=== PATIENT | male | born 1960 | race Caucasian/White ===

== ENCOUNTER 2018-06-06 22:03 | Inpatient (IN) | payer MEDICAID ==
[2018-06-06] MEDS: PANTOPRAZOLE IV 80 MG in SOD CHLORIDE 0.9% 100 ML IVPB (23:18)
[2018-06-06] MEDS: SOD CHLORIDE 0.9% 1,000 ML IV (23:19)
[2018-06-06 23:27] LABS: AADO2 Arterial 28.7 mmHg (7.0-24.0); Allen Test ACCEPTAB; Arterial Base Excess -0.1 mmol/L (-3.0-3); Arterial Blood Gas Oxygen Sat 92.8 mmHG (95.0-98.0); Arterial Fraction of Oxyhgb 91.6 % (93.0-99.0); Arterial HCO3 24.7 mmol/L (22.0-26.0); Arterial MetHb 0.3 % (0.0-1.5); Arterial pCO2 40.9 mmhg (35-45); MODE ROOM AIR; Site Right Radial
[2018-06-06 23:38] LABS: ABNORMAL IP MESSAGE 1; HEMATOCRIT 21.8 % (42.0-52.0); HEMOGLOBIN 7.4 g/dl (14.0-18.0); MEAN CORPUSCULAR HEMOGLOBIN 28.5 pg (29.0-33.0); MEAN CORPUSCULAR HGB CONC 33.9 g/dl (32.0-37.0); MEAN CORPUSCULAR VOLUME 83.8 fl (82.0-101.0); MEAN PLATELET VOLUME 11.9 fl (7.4-10.4); PLATELET COUNT 222 10^3/UL (140-415); POSITIVE DIFF @See below; RED CELL DISTRIBUTION WIDTH 12.5 % (11.5-14.5)
[2018-06-06 23:38] LABS: WHITE BLOOD COUNT 53.2 10^3/ul (4.8-10.8)
[2018-06-06 23:39] LABS: ADD MAN DIFF? YES
[2018-06-06 23:53] LABS: INR 1.23; PROTIME 15.7 Sec (11.9-14.9); PT RATIO 1.2
[2018-06-06 23:55] LABS: ALANINE AMINOTRANSFERASE 40 IU/L (13-69); ALBUMIN 2.5 g/dl (3.3-4.9); ALBUMIN/GLOBULIN RATIO 0.78; ALKALINE PHOSPHATASE 260 IU/L (42-121); ANION GAP 15 (5-13); ASPARTATE AMINO TRANSFERASE 44 IU/L (15-46); BILIRUBIN,INDIRECT 0.4 mg/dl (0-1.1); BILIRUBIN,TOTAL 0.4 mg/dl (0.2-1.3); BLOOD UREA NITROGEN 88 mg/dl (7-20); CALCIUM 7.9 mg/dl (8.4-10.2); CARBON DIOXIDE 27 mmol/L (21-31); CHLORIDE 88 mmol/L (97-110); CREATININE 1.26 mg/dl (0.61-1.24); Estimated GFR 59 mL/min (>60); POTASSIUM 3.9 mmol/L (3.5-5.1); SODIUM 130 mmol/L (135-144); TOTAL PROTEIN 5.7 g/dl (6.1-8.1)
[2018-06-06] MEDS: PANTOPRAZOLE IV 80 MG in SOD CHLORIDE 0.9% 100 ML IV (23:56)
[2018-06-07] LABS: GLUCOSE 612 mg/dl (70-220)
[2018-06-07 00:07] LABS: TROPONIN-I < 0.012 ng/ml (0.000-0.120)
[2018-06-07 00:23] LABS: ANISOCYTOSIS 1+ (0-0); BAND NEUTROPHILS #M 6.9 10^3/ul (0.0-0.6); BAND NEUTROPHILS % (M) 13 % (0-4); LYMPHOCYTES % (M) 2 % (15-51); METAMYELOCYTES #M 0.5 10^3/ul (0.0-0.0); METAMYELOCYTES %M 1 % (0-0); MONOCYTE #M 1.5 10^3/ul (0.3-0.9); MONOCYTES % (M) 3 % (0-11); MYELOCYTES #M 0.5 10^3/ul (0.0-0.0); MYELOCYTES % (M) 1 % (0-0); PLATELET ESTIMATE NORMAL; POLYCHROMASIA 1+ (0-0); SEG NEUT #M 46.2 10^3/ul (1.6-7.5); SEGMENTED NEUTROPHILS (M) % 80 % (39-77); SMUDGE%M 3 % (0-0)
[2018-06-07] MEDS: SODIUM CHLORIDE 0.9% 1L BAG IV* (00:33)
[2018-06-07 00:35] LABS: ERYTHROCYTE SEDIMENTATION RATE 125 mm/Hr (0-20)
[2018-06-07] MEDS: CEFEPIME 2GM/50 ML (PMX) 50 ML IVPB (00:37)
[2018-06-07] MEDS ORDERED: DEXTROSE 50% 50 ML SYRINGE IV ×2 (01:00)
[2018-06-07] MEDS: VANCOMYCIN 1 GM (PMX) 250 ML IVPB (01:10)
[2018-06-07] MEDS ORDERED: DOCUSATE SODIUM 100 MG CAP PO (01:30)
[2018-06-07] MEDS: ACCU-CHEK XX ×20 (02:00→19:00)
[2018-06-07] MEDS: SOD CHLORIDE 0.9% 1,000 ML IV (03:07)
[2018-06-07] MEDS: INSULIN HUMAN REGULAR 100 UNIT in SOD CHLORIDE 0.9% 99 ML IV (03:15)
[2018-06-07] MEDS ORDERED: VANCOMYCIN IV PER PHARMACY XX (03:30)
[2018-06-07 03:59] LABS: HEMOGLOBIN A1C 11.8 % (0-5.9)
[2018-06-07] MEDS: CLINDAMYCIN 900 MG/D5W (PMX) 50 ML IVPB ×3 (04:00→22:10)
[2018-06-07 05:55] LABS: WHITE BLOOD COUNT 42.2 10^3/ul (4.8-10.8)
[2018-06-07 05:55] LABS: ABNORMAL IP MESSAGE 1; HEMATOCRIT 20.5 % (42.0-52.0); MEAN CORPUSCULAR HEMOGLOBIN 28.6 pg (29.0-33.0); MEAN CORPUSCULAR HGB CONC 33.7 g/dl (32.0-37.0); MEAN CORPUSCULAR VOLUME 85.1 fl (82.0-101.0); MEAN PLATELET VOLUME 12.1 fl (7.4-10.4); NUCLEATED RED BLOOD CELLS% 0.1 /100WBC (0.0-0.0); PLATELET COUNT 211 10^3/UL (140-415); POSITIVE DIFF @See below; RED BLOOD COUNT 2.41 10^6/ul (4.70-6.10); RED CELL DISTRIBUTION WIDTH 12.4 % (11.5-14.5)
[2018-06-07] MEDS: VANCOMYCIN 500 MG (PMX) 100 ML IVPB (05:55)
[2018-06-07] MEDS ORDERED: CLINDAMYCIN 900 MG/D5W (PMX) 50 ML IVPB (06:00)
[2018-06-07 06:01] LABS: HEMOGLOBIN 6.9 g/dl (14.0-18.0)
[2018-06-07 06:02] LABS: ADD MAN DIFF? YES
[2018-06-07] MEDS: metroNIDAZOLE 500 MG/NS (PMX) 100 ML IVPB (06:27)
[2018-06-07] MEDS: PIPER-TAZO 3.375 GM IV (PMX) 100 ML IVPB ×4 (06:27→23:30)
[2018-06-07 06:32] LABS: ALANINE AMINOTRANSFERASE 37 IU/L (13-69); ALBUMIN/GLOBULIN RATIO 0.71; ALKALINE PHOSPHATASE 195 IU/L (42-121); ANION GAP 15 (5-13); ASPARTATE AMINO TRANSFERASE 41 IU/L (15-46); BILIRUBIN,INDIRECT 0.3 mg/dl (0-1.1); BILIRUBIN,TOTAL 0.3 mg/dl (0.2-1.3); BLOOD UREA NITROGEN 75 mg/dl (7-20); CALCIUM 7.5 mg/dl (8.4-10.2); CARBON DIOXIDE 22 mmol/L (21-31); CHLORIDE 101 mmol/L (97-110); CREATININE 0.81 mg/dl (0.61-1.24); Estimated GFR > 60 mL/min (>60); GLUCOSE 273 mg/dl (70-220); POTASSIUM 3.2 mmol/L (3.5-5.1); SODIUM 138 mmol/L (135-144); TOTAL PROTEIN 4.8 g/dl (6.1-8.1)
[2018-06-07 06:37] LABS: LACTIC ACID 4.6 mmol/L (0.5-2.0)
[2018-06-07 08:00] LABS: MAGNESIUM 2.7 mg/dl (1.7-2.5)
[2018-06-07 08:00] LABS: ANISOCYTOSIS 1+ (0-0); BAND NEUTROPHILS #M 5.9 10^3/ul (0.0-0.6); BAND NEUTROPHILS % (M) 14 % (0-4); BASOPHIL #M 0.4 10^3/ul (0.0-0.0); BASOPHILS % (M) 1 % (0-2); LYMPHOCYTES #M 0.4 10^3/ul (0.8-2.9); LYMPHOCYTES % (M) 1 % (15-51); MONOCYTE #M 0.8 10^3/ul (0.3-0.9); MONOCYTES % (M) 2 % (0-11); MYELOCYTES #M 0.8 10^3/ul (0.0-0.0); MYELOCYTES % (M) 2 % (0-0); PLATELET ESTIMATE NORMAL; POIKILOCYTOSIS 1+ (0-0); SEG NEUT #M 36.2 10^3/ul (1.6-7.5); SEGMENTED NEUTROPHILS (M) % 80 % (39-77); SMUDGE%M 8 % (0-0)
[2018-06-07 08:44] LABS: IMMEDIATE SPIN CROSSMATCH 1 4
[2018-06-07] MEDS ORDERED: POLYMYXIN B 500000 UNIT INJ ×2 (09:10→10:38)
[2018-06-07] MEDS ORDERED: MIDAZOLAM 1 MG/ML 2 ML INJ ×3 (09:25→10:55)
[2018-06-07] MEDS ORDERED: FENTAnyl 50 MCG/ML VIAL (09:25)
[2018-06-07] MEDS: POLYMYXIN/BACITRACIN 1L IRRIG IRR ×2 (09:55→10:45)
[2018-06-07 10:12] LABS: ADD UMIC YES; UR ASCORBIC ACID NEGATIVE (NEGATIVE); UR BILIRUBIN (Dip) NEGATIVE (NEGATIVE); UR BLOOD (Dip) 1+ mg/dL (NEGATIVE); UR CLARITY CLEAR (CLEAR); UR COLOR YELLOW (YELLOW); UR GLUCOSE (Dip) 3+ mg/dL (NEGATIVE); UR KETONES (Dip) TRACE mg/dL (NEGATIVE); UR LEUKOCYTE ESTERASE (Dip) NEGATIVE Leu/ul (NEGATIVE); UR NITRITE (Dip) NEGATIVE (NEGATIVE); UR RBC 0 /HPF (0-5); UR SPECIFIC GRAVITY (Dip) 1.016 (1.003-1.030); UR TOTAL PROTEIN (Dip) NEGATIVE (NEGATIVE); UR URIC ACID CRYSTAL FEW /HPF (NONE SEEN); UR UROBILINOGEN (Dip) NEGATIVE (NEGATIVE); UR WBC 1 /HPF (0-5)
[2018-06-07] MEDS ORDERED: LIDOCAINE 1% (STERILE-PAK) 30 ML INJ (10:25)
[2018-06-07] MEDS ORDERED: BACITRACIN 50000 UNITS INJ (10:41)
[2018-06-07] MEDS ORDERED: PROPOFOL 20 ML (10:52)
[2018-06-07] MEDS: POTASSIUM CHLORIDE 30 MEQ in SOD CHLORIDE 0.9% 1,000 ML IV ×2 (12:18→17:39)
[2018-06-07 15:33] LABS: WHITE BLOOD COUNT 39.1 10^3/ul (4.8-10.8)
[2018-06-07 15:33] LABS: ABNORMAL IP MESSAGE 1; HEMATOCRIT 21.4 % (42.0-52.0); HEMOGLOBIN 7.2 g/dl (14.0-18.0); MEAN CORPUSCULAR HEMOGLOBIN 28.8 pg (29.0-33.0); MEAN CORPUSCULAR HGB CONC 33.6 g/dl (32.0-37.0); MEAN CORPUSCULAR VOLUME 85.6 fl (82.0-101.0); MEAN PLATELET VOLUME 11.1 fl (7.4-10.4); NUCLEATED RED BLOOD CELLS% 0.2 /100WBC (0.0-0.0); PLATELET COUNT 175 10^3/UL (140-415); POSITIVE DIFF @See below; RED CELL DISTRIBUTION WIDTH 12.9 % (11.5-14.5)
[2018-06-07 15:45] LABS: ADD MAN DIFF? YES
[2018-06-07 15:54] LABS: IRON 56 ug/dl (35-150)
[2018-06-07 16:03] LABS: % IRON SATURATION 30 % SAT (22-52); TOTAL IRON BINDING CAPACITY 185 ug/dl (241-421)
[2018-06-07] MEDS: VANCOMYCIN 1 GM 250 ML IVPB (16:46)
[2018-06-07] MEDS: INSULIN GLARGINE [LANTus] (100 UNITS/ML) SYG SC (16:53)
[2018-06-07 16:57] LABS: BAND NEUTROPHILS #M 7.8 10^3/ul (0.0-0.6); BAND NEUTROPHILS % (M) 20 % (0-4); HYPOCHROMASIA 1+ (0-0); LYMPHOCYTES #M 1.1 10^3/ul (0.8-2.9); LYMPHOCYTES % (M) 3 % (15-51); METAMYELOCYTES #M 0.3 10^3/ul (0.0-0.0); METAMYELOCYTES %M 1 % (0-0); MONOCYTE #M 1.5 10^3/ul (0.3-0.9); MONOCYTES % (M) 4 % (0-11); MYELOCYTES #M 0.3 10^3/ul (0.0-0.0); MYELOCYTES % (M) 1 % (0-0); PLATELET ESTIMATE NORMAL; POLYCHROMASIA 1+ (0-0); REACTIVE LYMPHOCYTES #M 0.3 10^3/ul (0.0-0.0); REACTIVE LYMPHOCYTES% (M) 1 % (0-0); SEG NEUT #M 30.4 10^3/ul (1.6-7.5); SEGMENTED NEUTROPHILS (M) % 70 % (39-77); SMUDGE%M 20 % (0-0)
[2018-06-07] MEDS: INSULIN ASPART [NOVOLOG] 3 ML PEN SC ×2 (17:35→21:59)
[2018-06-07] MEDS: ALBUTEROL 0.083% (NEB) 2.5 MG/3 ML AMP NEB ×2 (20:09→21:11)
[2018-06-07] MEDS: IPRATROPIUM (NEB) 0.5 MG/2.5 ML AMP NEB ×2 (20:09→21:11)
[2018-06-07] MEDS: morphine 2 MG INJ IV (21:00)
[2018-06-07 22:14] LABS: WHITE BLOOD COUNT 39.5 10^3/ul (4.8-10.8)
[2018-06-07 22:14] LABS: ABNORMAL IP MESSAGE 1; HEMATOCRIT 23.5 % (42.0-52.0); HEMOGLOBIN 7.9 g/dl (14.0-18.0); MEAN CORPUSCULAR HEMOGLOBIN 29.2 pg (29.0-33.0); MEAN CORPUSCULAR HGB CONC 33.6 g/dl (32.0-37.0); MEAN CORPUSCULAR VOLUME 86.7 fl (82.0-101.0); MEAN PLATELET VOLUME 11.6 fl (7.4-10.4); NUCLEATED RED BLOOD CELLS% 0.3 /100WBC (0.0-0.0); PLATELET COUNT 191 10^3/UL (140-415); POSITIVE DIFF @See below; RED BLOOD COUNT 2.71 10^6/ul (4.70-6.10); RED CELL DISTRIBUTION WIDTH 13.1 % (11.5-14.5)
[2018-06-07 22:23] LABS: ADD MAN DIFF? YES
[2018-06-07 23:02] LABS: BAND NEUTROPHILS #M 7.5 10^3/ul (0.0-0.6); BAND NEUTROPHILS % (M) 19 % (0-4); LYMPHOCYTES #M 0.3 10^3/ul (0.8-2.9); LYMPHOCYTES % (M) 1 % (15-51); METAMYELOCYTES #M 1.1 10^3/ul (0.0-0.0); METAMYELOCYTES %M 3 % (0-0); MONOCYTE #M 2.3 10^3/ul (0.3-0.9); MONOCYTES % (M) 6 % (0-11); MYELOCYTES #M 0.3 10^3/ul (0.0-0.0); MYELOCYTES % (M) 1 % (0-0); PLATELET ESTIMATE NORMAL; POLYCHROMASIA 2+ (0-0); SEG NEUT #M 30.6 10^3/ul (1.6-7.5); SEGMENTED NEUTROPHILS (M) % 70 % (39-77); SMUDGE%M 1 % (0-0)
[2018-06-07 23:10] LABS: ANION GAP 10 (5-13); BLOOD UREA NITROGEN 41 mg/dl (7-20); CALCIUM 6.8 mg/dl (8.4-10.2); CARBON DIOXIDE 22 mmol/L (21-31); CHLORIDE 107 mmol/L (97-110); CREATININE 0.62 mg/dl (0.61-1.24); Estimated GFR > 60 mL/min (>60); GLUCOSE 171 mg/dl (70-220); POTASSIUM 3.4 mmol/L (3.5-5.1); SODIUM 139 mmol/L (135-144)
[2018-06-08] MEDS: ALBUTEROL 0.083% (NEB) 2.5 MG/3 ML AMP NEB ×7 (01:17→21:12)
[2018-06-08] MEDS: IPRATROPIUM (NEB) 0.5 MG/2.5 ML AMP NEB ×7 (01:17→21:14)
[2018-06-08] MEDS: ACCU-CHEK XX (02:26)
[2018-06-08] MEDS: POTASSIUM CHLORIDE 30 MEQ in SOD CHLORIDE 0.9% 1,000 ML IV ×2 (02:27→12:08)
[2018-06-08] MEDS: VANCOMYCIN 1 GM 250 ML IVPB ×2 (04:00→17:00)
[2018-06-08 05:04] LABS: WHITE BLOOD COUNT 35.1 10^3/ul (4.8-10.8)
[2018-06-08 05:04] LABS: ABNORMAL IP MESSAGE 1; HEMATOCRIT 20.6 % (42.0-52.0); MEAN CORPUSCULAR VOLUME 85.5 fl (82.0-101.0); MEAN PLATELET VOLUME 11.9 fl (7.4-10.4); NUCLEATED RED BLOOD CELLS% 0.3 /100WBC (0.0-0.0); PLATELET COUNT 190 10^3/UL (140-415); POSITIVE DIFF @See below; RED BLOOD COUNT 2.41 10^6/ul (4.70-6.10); RED CELL DISTRIBUTION WIDTH 13.6 % (11.5-14.5)
[2018-06-08] MEDS: PIPER-TAZO 3.375 GM IV (PMX) 100 ML IVPB ×3 (05:23→18:52)
[2018-06-08] MEDS: CLINDAMYCIN 900 MG/D5W (PMX) 50 ML IVPB ×3 (05:23→20:22)
[2018-06-08 05:26] LABS: ADD MAN DIFF? YES
[2018-06-08 05:33] LABS: ANION GAP 9 (5-13); BLOOD UREA NITROGEN 33 mg/dl (7-20); CALCIUM 7.2 mg/dl (8.4-10.2); CARBON DIOXIDE 23 mmol/L (21-31); CHLORIDE 112 mmol/L (97-110); Estimated GFR > 60 mL/min (>60); GLUCOSE 203 mg/dl (70-220); POTASSIUM 3.5 mmol/L (3.5-5.1); SODIUM 144 mmol/L (135-144)
[2018-06-08] MEDS: INSULIN ASPART [NOVOLOG] 3 ML PEN SC ×6 (07:58→20:22)
[2018-06-08 08:05] LABS: BAND NEUTROPHILS #M 6.3 10^3/ul (0.0-0.6); BAND NEUTROPHILS % (M) 18 % (0-4); BURR CELLS 2+ (0-0); LYMPHOCYTES #M 2.1 10^3/ul (0.8-2.9); LYMPHOCYTES % (M) 6 % (15-51); METAMYELOCYTES %M 3 % (0-0); MONOCYTES % (M) 3 % (0-11); MYELOCYTES #M 1.4 10^3/ul (0.0-0.0); MYELOCYTES % (M) 4 % (0-0); PLATELET ESTIMATE NORMAL; POIKILOCYTOSIS 1+ (0-0); POLYCHROMASIA 2+ (0-0); PROMYELOCYTES #M 0.3 10^3/ul (0-0); PROMYELOCYTES % (M) 1 % (0-0); SEGMENTED NEUTROPHILS (M) % 65 % (39-77)
[2018-06-08 10:18] LABS: ABNORMAL IP MESSAGE 1; HEMATOCRIT 21.5 % (42.0-52.0); HEMOGLOBIN 7.2 g/dl (14.0-18.0); MEAN CORPUSCULAR HEMOGLOBIN 29.1 pg (29.0-33.0); MEAN CORPUSCULAR HGB CONC 33.5 g/dl (32.0-37.0); MEAN PLATELET VOLUME 11.3 fl (7.4-10.4); NUCLEATED RED BLOOD CELLS% 0.3 /100WBC (0.0-0.0); PLATELET COUNT 171 10^3/UL (140-415); POSITIVE DIFF @See below; RED BLOOD COUNT 2.47 10^6/ul (4.70-6.10); RED CELL DISTRIBUTION WIDTH 13.8 % (11.5-14.5)
[2018-06-08 10:18] LABS: WHITE BLOOD COUNT 35.6 10^3/ul (4.8-10.8)
[2018-06-08 10:22] LABS: ADD MAN DIFF? YES
[2018-06-08 10:35] LABS: LACTIC ACID 1.5 mmol/L (0.5-2.0)
[2018-06-08 11:08] LABS: ANISOCYTOSIS 1+ (0-0); BAND NEUTROPHILS #M 8.5 10^3/ul (0.0-0.6); BAND NEUTROPHILS % (M) 24 % (0-4); ERYTHROBLAST% (NRBC) (M) 1 % (0-0); HYPOCHROMASIA 1+ (0-0); LYMPHOCYTES % (M) 3 % (15-51); METAMYELOCYTES #M 0.3 10^3/ul (0.0-0.0); METAMYELOCYTES %M 1 % (0-0); MONOCYTE #M 2.1 10^3/ul (0.3-0.9); MONOCYTES % (M) 6 % (0-11); MYELOCYTES #M 0.3 10^3/ul (0.0-0.0); MYELOCYTES % (M) 1 % (0-0); PLATELET ESTIMATE NORMAL; POLYCHROMASIA 3+ (0-0); SEG NEUT #M 26.2 10^3/ul (1.6-7.5); SEGMENTED NEUTROPHILS (M) % 65 % (39-77); SMUDGE%M 1 % (0-0)
[2018-06-08 11:40] LABS: ERYTHROCYTE SEDIMENTATION RATE 92 mm/Hr (0-20)
[2018-06-08 12:04] LABS: C-REACTIVE PROTEIN 26.9 mg/dl (0.0-0.9)
[2018-06-08 16:46] LABS: VANCOMYCIN,TROUGH 8.1 ug/ml (10.0-20.0)
[2018-06-08] MEDS: INSULIN GLARGINE [LANTus] (100 UNITS/ML) SYG SC (20:33)
[2018-06-09] MEDS: ALBUTEROL 0.083% (NEB) 2.5 MG/3 ML AMP NEB ×4 (00:19→12:53)
[2018-06-09] MEDS: IPRATROPIUM (NEB) 0.5 MG/2.5 ML AMP NEB ×4 (00:19→12:53)
[2018-06-09] MEDS: PIPER-TAZO 3.375 GM IV (PMX) 100 ML IVPB ×4 (00:26→17:34)
[2018-06-09] MEDS: POTASSIUM CHLORIDE 30 MEQ in SOD CHLORIDE 0.9% 1,000 ML IV ×3 (00:26→20:24)
[2018-06-09] MEDS: ACCU-CHEK XX (02:00)
[2018-06-09] MEDS ORDERED: PENDING SANTYL ORDER FOR WOUND CARE XX (03:00)
[2018-06-09] MEDS: VANCOMYCIN 1.25 GM in SOD CHLORIDE 0.9% 250 ML IVPB (03:58)
[2018-06-09] MEDS: CLINDAMYCIN 900 MG/D5W (PMX) 50 ML IVPB ×3 (05:56→22:09)
[2018-06-09 06:21] LABS: ABNORMAL IP MESSAGE 1; HEMATOCRIT 22.7 % (42.0-52.0); HEMOGLOBIN 7.6 g/dl (14.0-18.0); MEAN CORPUSCULAR HEMOGLOBIN 28.9 pg (29.0-33.0); MEAN CORPUSCULAR HGB CONC 33.5 g/dl (32.0-37.0); MEAN CORPUSCULAR VOLUME 86.3 fl (82.0-101.0); MEAN PLATELET VOLUME 11.3 fl (7.4-10.4); NUCLEATED RED BLOOD CELLS% 0.4 /100WBC (0.0-0.0); PLATELET COUNT 176 10^3/UL (140-415); POSITIVE DIFF @See below; RED BLOOD COUNT 2.63 10^6/ul (4.70-6.10)
[2018-06-09 06:21] LABS: WHITE BLOOD COUNT 31.8 10^3/ul (4.8-10.8)
[2018-06-09 06:31] LABS: ADD MAN DIFF? YES
[2018-06-09 06:32] LABS: LACTIC ACID 1.2 mmol/L (0.5-2.0)
[2018-06-09 06:49] LABS: ALANINE AMINOTRANSFERASE 42 IU/L (13-69); ALBUMIN 1.7 g/dl (3.3-4.9); ALBUMIN/GLOBULIN RATIO 0.62; ALKALINE PHOSPHATASE 182 IU/L (42-121); ANION GAP 7 (5-13); ASPARTATE AMINO TRANSFERASE 62 IU/L (15-46); BILIRUBIN,INDIRECT 0.5 mg/dl (0-1.1); BILIRUBIN,TOTAL 0.5 mg/dl (0.2-1.3); BLOOD UREA NITROGEN 17 mg/dl (7-20); CALCIUM 7.1 mg/dl (8.4-10.2); CARBON DIOXIDE 23 mmol/L (21-31); CHLORIDE 110 mmol/L (97-110); CREATININE 0.61 mg/dl (0.61-1.24); Estimated GFR > 60 mL/min (>60); GLUCOSE 215 mg/dl (70-220); POTASSIUM 3.6 mmol/L (3.5-5.1); SODIUM 140 mmol/L (135-144); TOTAL PROTEIN 4.4 g/dl (6.1-8.1)
[2018-06-09] MEDS: INSULIN ASPART [NOVOLOG] 3 ML PEN SC ×7 (09:01→21:00)
[2018-06-09 09:10] LABS: ANISOCYTOSIS 1+ (0-0); BAND NEUTROPHILS #M 2.5 10^3/ul (0.0-0.6); BAND NEUTROPHILS % (M) 8 % (0-4); BURR CELLS 1+ (0-0); LYMPHOCYTES #M 1.9 10^3/ul (0.8-2.9); LYMPHOCYTES % (M) 6 % (15-51); METAMYELOCYTES #M 0.3 10^3/ul (0.0-0.0); METAMYELOCYTES %M 1 % (0-0); MONOCYTE #M 0.9 10^3/ul (0.3-0.9); MONOCYTES % (M) 3 % (0-11); MYELOCYTES #M 1.9 10^3/ul (0.0-0.0); MYELOCYTES % (M) 6 % (0-0); PLATELET ESTIMATE NORMAL; POIKILOCYTOSIS 1+ (0-0); POLYCHROMASIA 3+ (0-0); PROMYELOCYTES #M 0.3 10^3/ul (0-0); PROMYELOCYTES % (M) 1 % (0-0); SEG NEUT #M 24.6 10^3/ul (1.6-7.5); SEGMENTED NEUTROPHILS (M) % 75 % (39-77); SMUDGE%M 4 % (0-0)
[2018-06-09] MEDS: BALSAM PERU/CASTOR OIL 60 GM TUBE TOP ×2 (15:31→22:09)
[2018-06-09 16:48] LABS: ASO TITER <50 IU/mL (<200)
[2018-06-09] MEDS: INSULIN GLARGINE [LANTus] (100 UNITS/ML) SYG SC (22:08)
[2018-06-10] MEDS: PIPER-TAZO 3.375 GM IV (PMX) 100 ML IVPB ×4 (00:34→17:16)
[2018-06-10] MEDS: ACCU-CHEK XX (02:00)
[2018-06-10 04:12] LABS: ABNORMAL IP MESSAGE 1; HEMATOCRIT 24.5 % (42.0-52.0); HEMOGLOBIN 7.9 g/dl (14.0-18.0); MEAN CORPUSCULAR HEMOGLOBIN 28.7 pg (29.0-33.0); MEAN CORPUSCULAR HGB CONC 32.2 g/dl (32.0-37.0); MEAN CORPUSCULAR VOLUME 89.1 fl (82.0-101.0); MEAN PLATELET VOLUME 10.7 fl (7.4-10.4); NUCLEATED RED BLOOD CELLS% 0.1 /100WBC (0.0-0.0); PLATELET COUNT 198 10^3/UL (140-415); POSITIVE DIFF @See below; RED BLOOD COUNT 2.75 10^6/ul (4.70-6.10); RED CELL DISTRIBUTION WIDTH 14.1 % (11.5-14.5)
[2018-06-10 04:12] LABS: WHITE BLOOD COUNT 33.6 10^3/ul (4.8-10.8)
[2018-06-10 04:18] LABS: ADD MAN DIFF? YES
[2018-06-10 04:27] LABS: ANION GAP 7 (5-13); BLOOD UREA NITROGEN 12 mg/dl (7-20); CALCIUM 7.1 mg/dl (8.4-10.2); CARBON DIOXIDE 23 mmol/L (21-31); CHLORIDE 108 mmol/L (97-110); CREATININE 0.61 mg/dl (0.61-1.24); Estimated GFR > 60 mL/min (>60); GLUCOSE 146 mg/dl (70-220); POTASSIUM 3.3 mmol/L (3.5-5.1); SODIUM 138 mmol/L (135-144)
[2018-06-10 04:43] LABS: C-REACTIVE PROTEIN 18.9 mg/dl (0.0-0.9)
[2018-06-10] MEDS: POTASSIUM CHLORIDE 30 MEQ in SOD CHLORIDE 0.9% 1,000 ML IV ×3 (04:55→17:17)
[2018-06-10] MEDS: CLINDAMYCIN 900 MG/D5W (PMX) 50 ML IVPB (05:31)
[2018-06-10 05:41] LABS: BAND NEUTROPHILS % (M) 12 % (0-4); EOSINOPHILS % (M) 1 % (0-7); GIANT THROMBO% (M) 1 % (0-0); LYMPHOCYTES % (M) 6 % (15-51); MONOCYTE #M 0.6 10^3/ul (0.3-0.9); MONOCYTES % (M) 2 % (0-11); MYELOCYTES % (M) 3 % (0-0); PLATELET ESTIMATE NORMAL; SEG NEUT #M 26.9 10^3/ul (1.6-7.5); SEGMENTED NEUTROPHILS (M) % 76 % (39-77); SMUDGE%M 3 % (0-0)
[2018-06-10 05:51] LABS: WHITE BLOOD COUNT 35.8 10^3/ul (4.8-10.8)
[2018-06-10 05:51] LABS: ABNORMAL IP MESSAGE 1; HEMATOCRIT 24.3 % (42.0-52.0); MEAN CORPUSCULAR HEMOGLOBIN 29.5 pg (29.0-33.0); MEAN CORPUSCULAR HGB CONC 32.9 g/dl (32.0-37.0); MEAN CORPUSCULAR VOLUME 89.7 fl (82.0-101.0); MEAN PLATELET VOLUME 10.9 fl (7.4-10.4); NUCLEATED RED BLOOD CELLS% 0.1 /100WBC (0.0-0.0); PLATELET COUNT 203 10^3/UL (140-415); POSITIVE DIFF @See below; RED BLOOD COUNT 2.71 10^6/ul (4.70-6.10); RED CELL DISTRIBUTION WIDTH 14.2 % (11.5-14.5)
[2018-06-10 05:52] LABS: ERYTHROCYTE SEDIMENTATION RATE 129 mm/Hr (0-20)
[2018-06-10 06:23] LABS: ADD MAN DIFF? YES
[2018-06-10] MEDS: INSULIN ASPART [NOVOLOG] 3 ML PEN SC ×7 (08:24→21:10)
[2018-06-10] MEDS: BALSAM PERU/CASTOR OIL 60 GM TUBE TOP ×2 (08:26→21:13)
[2018-06-10 09:43] LABS: ANISOCYTOSIS 1+ (0-0); BAND NEUTROPHILS #M 5.3 10^3/ul (0.0-0.6); BAND NEUTROPHILS % (M) 15 % (0-4); EOSINOPHILS % (M) 1 % (0-7); GIANT THROMBO% (M) 1 % (0-0); LYMPHOCYTES #M 0.7 10^3/ul (0.8-2.9); LYMPHOCYTES % (M) 2 % (15-51); METAMYELOCYTES #M 0.3 10^3/ul (0.0-0.0); METAMYELOCYTES %M 1 % (0-0); MONOCYTE #M 0.7 10^3/ul (0.3-0.9); MONOCYTES % (M) 2 % (0-11); MYELOCYTES #M 1.4 10^3/ul (0.0-0.0); MYELOCYTES % (M) 4 % (0-0); PLATELET ESTIMATE NORMAL; POIKILOCYTOSIS 2+ (0-0); PROMYELOCYTES #M 0.3 10^3/ul (0-0); PROMYELOCYTES % (M) 1 % (0-0); REACTIVE LYMPHOCYTES #M 0.3 10^3/ul (0.0-0.0); REACTIVE LYMPHOCYTES% (M) 1 % (0-0); SEGMENTED NEUTROPHILS (M) % 73 % (39-77)
[2018-06-10 11:12] LABS: ABNORMAL IP MESSAGE 1; HEMATOCRIT 22.4 % (42.0-52.0); HEMOGLOBIN 7.3 g/dl (14.0-18.0); MEAN CORPUSCULAR HEMOGLOBIN 28.7 pg (29.0-33.0); MEAN CORPUSCULAR HGB CONC 32.6 g/dl (32.0-37.0); MEAN CORPUSCULAR VOLUME 88.2 fl (82.0-101.0); MEAN PLATELET VOLUME 10.6 fl (7.4-10.4); NUCLEATED RED BLOOD CELLS% 0.1 /100WBC (0.0-0.0); PLATELET COUNT 200 10^3/UL (140-415); POSITIVE DIFF @See below; RED BLOOD COUNT 2.54 10^6/ul (4.70-6.10); RED CELL DISTRIBUTION WIDTH 14.2 % (11.5-14.5)
[2018-06-10 11:12] LABS: WHITE BLOOD COUNT 34.4 10^3/ul (4.8-10.8)
[2018-06-10 11:16] LABS: ADD MAN DIFF? YES
[2018-06-10 12:23] LABS: OCCULT BLOOD STOOL POSITIVE (NEGATIVE)
[2018-06-10 12:28] LABS: BAND NEUTROPHILS #M 5.5 10^3/ul (0.0-0.6); BAND NEUTROPHILS % (M) 16 % (0-4); EOSINOPHILS % (M) 1 % (0-7); LYMPHOCYTES #M 1.7 10^3/ul (0.8-2.9); LYMPHOCYTES % (M) 5 % (15-51); METAMYELOCYTES #M 0.3 10^3/ul (0.0-0.0); METAMYELOCYTES %M 1 % (0-0); MONOCYTES % (M) 6 % (0-11); MYELOCYTES #M 0.6 10^3/ul (0.0-0.0); MYELOCYTES % (M) 2 % (0-0); PLATELET ESTIMATE NORMAL; PROMYELOCYTES #M 0.3 10^3/ul (0-0); PROMYELOCYTES % (M) 1 % (0-0); SEG NEUT #M 25.3 10^3/ul (1.6-7.5); SEGMENTED NEUTROPHILS (M) % 68 % (39-77)
[2018-06-10] MEDS: HEPARIN 5,000 UNIT/1 ML VIAL SC ×2 (14:00→21:11)
[2018-06-10] MEDS: POTASSIUM CHLORIDE 20 MEQ POWDER FOR ORAL SOLN PO (14:21)
[2018-06-10] MEDS: SUCRALFATE (100 MG/ML) 10ML CUP PO ×2 (17:16→21:04)
[2018-06-10] MEDS: PANTOPRAZOLE (EC) 40 MG TAB PO (17:16)
[2018-06-10] MEDS ORDERED: HEPARIN 5,000 UNIT/0.5 ML VIAL (21:07)
[2018-06-10] MEDS: INSULIN GLARGINE [LANTus] (100 UNITS/ML) SYG SC (21:12)
[2018-06-11] MEDS: PIPER-TAZO 3.375 GM IV (PMX) 100 ML IVPB ×4 (00:40→17:58)
[2018-06-11] MEDS: ACCU-CHEK XX (02:19)
[2018-06-11] MEDS ORDERED: HEPARIN 5,000 UNIT/0.5 ML VIAL (05:26)
[2018-06-11] MEDS: POTASSIUM CHLORIDE 30 MEQ in SOD CHLORIDE 0.9% 1,000 ML IV ×3 (05:30→23:09)
[2018-06-11] MEDS: PANTOPRAZOLE (EC) 40 MG TAB PO ×2 (05:30→17:52)
[2018-06-11] MEDS: HEPARIN 5,000 UNIT/1 ML VIAL SC ×2 (05:33→14:00)
[2018-06-11 06:11] LABS: ABNORMAL IP MESSAGE 1; HEMATOCRIT 20.7 % (42.0-52.0); MEAN CORPUSCULAR HEMOGLOBIN 29.1 pg (29.0-33.0); MEAN CORPUSCULAR HGB CONC 32.9 g/dl (32.0-37.0); MEAN CORPUSCULAR VOLUME 88.5 fl (82.0-101.0); MEAN PLATELET VOLUME 10.9 fl (7.4-10.4); PLATELET COUNT 222 10^3/UL (140-415); POSITIVE DIFF @See below; RED BLOOD COUNT 2.34 10^6/ul (4.70-6.10); RED CELL DISTRIBUTION WIDTH 14.4 % (11.5-14.5)
[2018-06-11 06:49] LABS: ADD MAN DIFF? YES; HEMOGLOBIN 6.8 g/dl (14.0-18.0)
[2018-06-11 08:00] LABS: BAND NEUTROPHILS #M 1.5 10^3/ul (0.0-0.6); BAND NEUTROPHILS % (M) 5 % (0-4); GIANT THROMBO% (M) 2 % (0-0); LYMPHOCYTES #M 1.2 10^3/ul (0.8-2.9); LYMPHOCYTES % (M) 4 % (15-51); MONOCYTE #M 0.3 10^3/ul (0.3-0.9); MONOCYTES % (M) 1 % (0-11); PLATELET ESTIMATE NORMAL; POIKILOCYTOSIS 1+ (0-0); POLYCHROMASIA 1+ (0-0); SEG NEUT #M 28.4 10^3/ul (1.6-7.5); SEGMENTED NEUTROPHILS (M) % 90 % (39-77); SMUDGE%M 4 % (0-0); TOXIC GRANULATION 1+ (0-0)
[2018-06-11] MEDS: INSULIN ASPART [NOVOLOG] 3 ML PEN SC ×7 (08:07→21:00)
[2018-06-11 08:17] LABS: IMMEDIATE SPIN CROSSMATCH 1 2
[2018-06-11] MEDS: SUCRALFATE (100 MG/ML) 10ML CUP PO ×4 (08:38→21:14)
[2018-06-11] MEDS: BALSAM PERU/CASTOR OIL 60 GM TUBE TOP ×2 (08:39→21:24)
[2018-06-11 15:33] LABS: ANION GAP 7 (5-13); BLOOD UREA NITROGEN 10 mg/dl (7-20); CALCIUM 7.3 mg/dl (8.4-10.2); CARBON DIOXIDE 24 mmol/L (21-31); CHLORIDE 105 mmol/L (97-110); CREATININE 0.56 mg/dl (0.61-1.24); Estimated GFR > 60 mL/min (>60); GLUCOSE 206 mg/dl (70-220); MAGNESIUM 1.7 mg/dl (1.7-2.5); POTASSIUM 3.3 mmol/L (3.5-5.1); SODIUM 136 mmol/L (135-144)
[2018-06-11] MEDS: INSULIN GLARGINE [LANTus] (100 UNITS/ML) SYG SC (21:19)
[2018-06-12] MEDS: PIPER-TAZO 3.375 GM IV (PMX) 100 ML IVPB ×4 (01:06→17:43)
[2018-06-12] MEDS: POTASSIUM CHLORIDE 30 MEQ in SOD CHLORIDE 0.9% 1,000 ML IV ×2 (01:06→09:18)
[2018-06-12] MEDS: ACCU-CHEK XX (02:00)
[2018-06-12] MEDS: PANTOPRAZOLE (EC) 40 MG TAB PO ×2 (05:51→17:43)
[2018-06-12 06:12] LABS: ABNORMAL IP MESSAGE 1; HEMATOCRIT 28.2 % (42.0-52.0); MEAN CORPUSCULAR HEMOGLOBIN 28.9 pg (29.0-33.0); MEAN CORPUSCULAR HGB CONC 31.9 g/dl (32.0-37.0); MEAN CORPUSCULAR VOLUME 90.7 fl (82.0-101.0); MEAN PLATELET VOLUME 10.9 fl (7.4-10.4); PLATELET COUNT 272 10^3/UL (140-415); POSITIVE DIFF @See below; RED BLOOD COUNT 3.11 10^6/ul (4.70-6.10); RED CELL DISTRIBUTION WIDTH 14.6 % (11.5-14.5)
[2018-06-12 06:12] LABS: WHITE BLOOD COUNT 28.5 10^3/ul (4.8-10.8)
[2018-06-12] MEDS: ALBUTEROL/IPRATROPIUM (NEB) 3 ML AMP HHN (06:16)
[2018-06-12 06:31] LABS: ADD MAN DIFF? YES
[2018-06-12 07:10] LABS: ANION GAP 5 (5-13); BLOOD UREA NITROGEN 9 mg/dl (7-20); CALCIUM 7.4 mg/dl (8.4-10.2); CARBON DIOXIDE 24 mmol/L (21-31); CHLORIDE 107 mmol/L (97-110); CREATININE 0.62 mg/dl (0.61-1.24); Estimated GFR > 60 mL/min (>60); GLUCOSE 206 mg/dl (70-220); MAGNESIUM 1.7 mg/dl (1.7-2.5); POTASSIUM 3.5 mmol/L (3.5-5.1); SODIUM 136 mmol/L (135-144)
[2018-06-12 07:26] LABS: BAND NEUTROPHILS #M 0.2 10^3/ul (0.0-0.6); BAND NEUTROPHILS % (M) 1 % (0-4); LYMPHOCYTES #M 1.1 10^3/ul (0.8-2.9); LYMPHOCYTES % (M) 4 % (15-51); METAMYELOCYTES #M 0.5 10^3/ul (0.0-0.0); METAMYELOCYTES %M 2 % (0-0); MONOCYTE #M 1.1 10^3/ul (0.3-0.9); MONOCYTES % (M) 4 % (0-11); MYELOCYTES #M 0.2 10^3/ul (0.0-0.0); MYELOCYTES % (M) 1 % (0-0); PLATELET ESTIMATE NORMAL; SEG NEUT #M 25.1 10^3/ul (1.6-7.5); SEGMENTED NEUTROPHILS (M) % 88 % (39-77)
[2018-06-12] MEDS: BALSAM PERU/CASTOR OIL 60 GM TUBE TOP ×2 (08:05→21:08)
[2018-06-12] MEDS: SUCRALFATE (100 MG/ML) 10ML CUP PO ×4 (08:15→21:00)
[2018-06-12] MEDS: INSULIN ASPART [NOVOLOG] 3 ML PEN SC ×7 (08:19→21:00)
[2018-06-12] MEDS: INFLUENZA VIRUS VACCINE 0.5 ML (DISPENSING) IM* (16:42)
[2018-06-12] MEDS: POLYETHYLENE GLYCOL 3350 119 GM POWDER PO (17:43)
[2018-06-12] MEDS: BISACODYL (EC) 5 MG TAB PO (17:43)
[2018-06-12] MEDS: MAGNESIUM CITRATE 300 ML BTL PO (17:43)
[2018-06-12] MEDS: INSULIN GLARGINE [LANTus] (100 UNITS/ML) SYG SC (21:06)
[2018-06-13] MEDS: ZOLPIDEM 5 MG TAB PO (00:27)
[2018-06-13] MEDS: PIPER-TAZO 3.375 GM IV (PMX) 100 ML IVPB ×3 (00:27→12:30)
[2018-06-13] MEDS: ACCU-CHEK XX (02:00)
[2018-06-13] MEDS: PANTOPRAZOLE (EC) 40 MG TAB PO ×2 (05:24→18:13)
[2018-06-13] MEDS: POLYETHYLENE GLYCOL 3350 119 GM POWDER PO ×2 (05:25→18:13)
[2018-06-13 06:46] LABS: ADD MAN DIFF? NO
[2018-06-13 06:49] LABS: ABNORMAL IP MESSAGE 1; BASOPHILS % 0.1 % (0.0-2.0); EOSINOPHILS # 0.1 10^3/ul (0.0-0.5); EOSINOPHILS % 0.3 % (0.0-7.0); HEMOGLOBIN 8.1 g/dl (14.0-18.0); LYMPHOCYTES # 1.2 10^3/ul (0.8-2.9); LYMPHOCYTES % 4.8 % (15.0-51.0); MEAN CORPUSCULAR HEMOGLOBIN 29.2 pg (29.0-33.0); MEAN CORPUSCULAR HGB CONC 32.4 g/dl (32.0-37.0); MEAN CORPUSCULAR VOLUME 90.3 fl (82.0-101.0); MEAN PLATELET VOLUME 10.8 fl (7.4-10.4); MONOCYTE # 1.4 10^3/ul (0.3-0.9); MONOCYTES % 5.7 % (0.0-11.0); NEUTROPHIL # 21.2 10^3/ul (1.6-7.5); NEUTROPHILS % 85.8 % (39.0-77.0); PLATELET COUNT 309 10^3/UL (140-415); POSITIVE DIFF @See below; RED BLOOD COUNT 2.77 10^6/ul (4.70-6.10); RED CELL DISTRIBUTION WIDTH 14.6 % (11.5-14.5)
[2018-06-13 06:49] LABS: WHITE BLOOD COUNT 24.7 10^3/ul (4.8-10.8)
[2018-06-13 07:12] LABS: ANION GAP 8 (5-13); BLOOD UREA NITROGEN 9 mg/dl (7-20); CALCIUM 6.9 mg/dl (8.4-10.2); CARBON DIOXIDE 28 mmol/L (21-31); CHLORIDE 102 mmol/L (97-110); CREATININE 0.57 mg/dl (0.61-1.24); Estimated GFR > 60 mL/min (>60); GLUCOSE 154 mg/dl (70-220); POTASSIUM 3.1 mmol/L (3.5-5.1); SODIUM 138 mmol/L (135-144)
[2018-06-13] MEDS: INSULIN ASPART [NOVOLOG] 3 ML PEN SC ×7 (08:00→20:38)
[2018-06-13] MEDS: BISACODYL (EC) 5 MG TAB PO ×2 (08:57→15:25)
[2018-06-13] MEDS: BALSAM PERU/CASTOR OIL 60 GM TUBE TOP ×2 (09:00→20:30)
[2018-06-13] MEDS: SUCRALFATE (100 MG/ML) 10ML CUP PO ×4 (09:00→20:30)
[2018-06-13] MEDS ORDERED: LIDOCAINE 2% (MDV) 20 ML INJ (10:13)
[2018-06-13] MEDS ORDERED: SOD CHLORIDE 0.9% 500 ML (10:13)
[2018-06-13] MEDS ORDERED: IODIXANOL LOCM 100 ML BTL (10:13)
[2018-06-13] MEDS ORDERED: HEPARIN 1000 UNITS/NS (A-LINE) 1,000 ML (10:13)
[2018-06-13] MEDS ORDERED: HEPARIN 1000 UNITS/ML 10 ML INJ (10:13)
[2018-06-13] MEDS ORDERED: FENTAnyl 50 MCG/ML VIAL (10:14)
[2018-06-13] MEDS ORDERED: MIDAZOLAM 1 MG/ML 2 ML INJ (10:14)
[2018-06-13] MEDS: LACTATED RINGER'S 1,000 ML IV (11:30)
[2018-06-13] MEDS: INSULIN GLARGINE [LANTus] (100 UNITS/ML) SYG SC (20:37)
[2018-06-13] MEDS: morphine LIQ (10 MG/5 ML) CUP PO (21:11)
[2018-06-13] MEDS: MAGNESIUM CITRATE 300 ML BTL PO (21:11)
[2018-06-14] MEDS: PIPER-TAZO 3.375 GM IV (PMX) 100 ML IVPB ×5 (01:03→17:59)
[2018-06-14] MEDS: morphine LIQ (10 MG/5 ML) CUP PO (01:43)
[2018-06-14] MEDS: ACCU-CHEK XX (01:44)
[2018-06-14] MEDS: SOD CHLORIDE 0.9% 250 ML IV* (01:44)
[2018-06-14 02:43] LABS: IMMEDIATE SPIN CROSSMATCH 1 2
[2018-06-14] MEDS: PANTOPRAZOLE (EC) 40 MG TAB PO ×2 (06:00→17:52)
[2018-06-14] MEDS: POLYETHYLENE GLYCOL 3350 119 GM POWDER PO (06:39)
[2018-06-14] MEDS: INSULIN ASPART [NOVOLOG] 3 ML PEN SC ×7 (08:00→21:00)
[2018-06-14 08:13] LABS: ADD MAN DIFF? NO
[2018-06-14] MEDS: BISACODYL (EC) 5 MG TAB PO (08:14)
[2018-06-14 08:15] LABS: BASOPHILS % 0.2 % (0.0-2.0); EOSINOPHILS # 0.1 10^3/ul (0.0-0.5); EOSINOPHILS % 0.3 % (0.0-7.0); HEMATOCRIT 28.3 % (42.0-52.0); HEMOGLOBIN 9.1 g/dl (14.0-18.0); LYMPHOCYTES # 1.1 10^3/ul (0.8-2.9); MEAN CORPUSCULAR HEMOGLOBIN 28.9 pg (29.0-33.0); MEAN CORPUSCULAR HGB CONC 32.2 g/dl (32.0-37.0); MEAN CORPUSCULAR VOLUME 89.8 fl (82.0-101.0); MEAN PLATELET VOLUME 10.2 fl (7.4-10.4); MONOCYTE # 1.2 10^3/ul (0.3-0.9); MONOCYTES % 5.5 % (0.0-11.0); NEUTROPHIL # 18.7 10^3/ul (1.6-7.5); NEUTROPHILS % 87.5 % (39.0-77.0); PLATELET COUNT 322 10^3/UL (140-415); RED BLOOD COUNT 3.15 10^6/ul (4.70-6.10); RED CELL DISTRIBUTION WIDTH 14.3 % (11.5-14.5)
[2018-06-14 08:15] LABS: WHITE BLOOD COUNT 21.4 10^3/ul (4.8-10.8)
[2018-06-14] MEDS: SUCRALFATE (100 MG/ML) 10ML CUP PO ×4 (08:18→21:00)
[2018-06-14] MEDS: BALSAM PERU/CASTOR OIL 60 GM TUBE TOP ×2 (08:19→21:25)
[2018-06-14 08:34] LABS: ANION GAP 6 (5-13); BLOOD UREA NITROGEN 8 mg/dl (7-20); CALCIUM 7.2 mg/dl (8.4-10.2); CARBON DIOXIDE 31 mmol/L (21-31); CHLORIDE 101 mmol/L (97-110); CREATININE 0.52 mg/dl (0.61-1.24); Estimated GFR > 60 mL/min (>60); GLUCOSE 73 mg/dl (70-220); MAGNESIUM 2.1 mg/dl (1.7-2.5); PHOSPHORUS 3.5 mg/dl (2.5-4.9); SODIUM 138 mmol/L (135-144)
[2018-06-14 08:45] LABS: POTASSIUM 2.5 mmol/L (3.5-5.1)
[2018-06-14] MEDS: POTASSIUM CHLORIDE 100 ML IVPB ×3 (11:13→21:54)
[2018-06-14 16:45] LABS: POTASSIUM 3.1 mmol/L (3.5-5.1)
[2018-06-14] MEDS: INSULIN GLARGINE [LANTus] (100 UNITS/ML) SYG SC (20:00)
[2018-06-14] MEDS: DEXTROSE 5%-0.45% NACL 1,000 ML IV (21:19)
[2018-06-15] MEDS: POTASSIUM CHLORIDE 100 ML IVPB ×4 (01:01→12:19)
[2018-06-15] MEDS: PIPER-TAZO 3.375 GM IV (PMX) 100 ML IVPB ×4 (01:14→19:14)
[2018-06-15] MEDS: ACCU-CHEK XX (02:00)
[2018-06-15 05:49] LABS: ADD MAN DIFF? NO
[2018-06-15 05:55] LABS: WHITE BLOOD COUNT 22.1 10^3/ul (4.8-10.8)
[2018-06-15 05:55] LABS: BASOPHILS % 0.2 % (0.0-2.0); EOSINOPHILS % 0.1 % (0.0-7.0); HEMOGLOBIN 9.1 g/dl (14.0-18.0); LYMPHOCYTES # 0.9 10^3/ul (0.8-2.9); LYMPHOCYTES % 4.2 % (15.0-51.0); MEAN CORPUSCULAR HGB CONC 32.5 g/dl (32.0-37.0); MEAN CORPUSCULAR VOLUME 89.2 fl (82.0-101.0); MEAN PLATELET VOLUME 10.5 fl (7.4-10.4); MONOCYTE # 1.1 10^3/ul (0.3-0.9); MONOCYTES % 4.9 % (0.0-11.0); NEUTROPHIL # 19.8 10^3/ul (1.6-7.5); NEUTROPHILS % 89.3 % (39.0-77.0); PLATELET COUNT 342 10^3/UL (140-415); RED BLOOD COUNT 3.14 10^6/ul (4.70-6.10); RED CELL DISTRIBUTION WIDTH 14.1 % (11.5-14.5)
[2018-06-15] MEDS: PANTOPRAZOLE (EC) 40 MG TAB PO ×2 (06:00→19:16)
[2018-06-15 06:23] LABS: ANION GAP 8 (5-13); BLOOD UREA NITROGEN 10 mg/dl (7-20); CALCIUM 6.9 mg/dl (8.4-10.2); CARBON DIOXIDE 29 mmol/L (21-31); CHLORIDE 103 mmol/L (97-110); CREATININE 0.59 mg/dl (0.61-1.24); Estimated GFR > 60 mL/min (>60); GLUCOSE 100 mg/dl (70-220); SODIUM 140 mmol/L (135-144)
[2018-06-15 06:48] LABS: POTASSIUM 2.8 mmol/L (3.5-5.1)
[2018-06-15] MEDS: DEXTROSE 5%-0.45% NACL 1,000 ML IV ×2 (07:54→17:00)
[2018-06-15] MEDS: INSULIN ASPART [NOVOLOG] 3 ML PEN SC ×7 (07:56→21:00)
[2018-06-15] MEDS: SUCRALFATE (100 MG/ML) 10ML CUP PO ×4 (07:58→22:03)
[2018-06-15] MEDS: BALSAM PERU/CASTOR OIL 60 GM TUBE TOP ×2 (07:58→21:00)
[2018-06-15 16:39] LABS: POTASSIUM 3.5 mmol/L (3.5-5.1)
[2018-06-16] MEDS: PIPER-TAZO 3.375 GM IV (PMX) 100 ML IVPB ×5 (00:38→23:32)
[2018-06-16] MEDS: ACCU-CHEK XX (02:00)
[2018-06-16] MEDS: morphine LIQ (10 MG/5 ML) CUP PO ×2 (05:27→15:10)
[2018-06-16] MEDS: PANTOPRAZOLE (EC) 40 MG TAB PO ×2 (05:27→18:21)
[2018-06-16 06:45] LABS: ADD MAN DIFF? NO
[2018-06-16 07:01] LABS: BASOPHILS % 0.2 % (0.0-2.0); EOSINOPHILS # 0.1 10^3/ul (0.0-0.5); EOSINOPHILS % 0.4 % (0.0-7.0); HEMATOCRIT 25.1 % (42.0-52.0); LYMPHOCYTES # 1.1 10^3/ul (0.8-2.9); LYMPHOCYTES % 6.6 % (15.0-51.0); MEAN CORPUSCULAR HEMOGLOBIN 28.7 pg (29.0-33.0); MEAN CORPUSCULAR HGB CONC 31.9 g/dl (32.0-37.0); MEAN PLATELET VOLUME 10.5 fl (7.4-10.4); MONOCYTE # 0.9 10^3/ul (0.3-0.9); MONOCYTES % 5.8 % (0.0-11.0); NEUTROPHILS % 85.9 % (39.0-77.0); PLATELET COUNT 349 10^3/UL (140-415); RED BLOOD COUNT 2.79 10^6/ul (4.70-6.10)
[2018-06-16 07:01] LABS: WHITE BLOOD COUNT 16.3 10^3/ul (4.8-10.8)
[2018-06-16 07:29] LABS: ANION GAP 8 (5-13); BLOOD UREA NITROGEN 11 mg/dl (7-20); CARBON DIOXIDE 29 mmol/L (21-31); CHLORIDE 102 mmol/L (97-110); CREATININE 0.58 mg/dl (0.61-1.24); Estimated GFR > 60 mL/min (>60); GLUCOSE 164 mg/dl (70-220); POTASSIUM 3.2 mmol/L (3.5-5.1); SODIUM 139 mmol/L (135-144)
[2018-06-16] MEDS: INSULIN ASPART [NOVOLOG] 3 ML PEN SC ×7 (09:20→21:00)
[2018-06-16] MEDS: BALSAM PERU/CASTOR OIL 60 GM TUBE TOP ×2 (09:50→20:53)
[2018-06-16] MEDS: POTASSIUM CHLORIDE (SR) 20 MEQ TAB PO (10:35)
[2018-06-16] MEDS: INSULIN GLARGINE [LANTus] (100 UNITS/ML) SYG SC (20:59)
[2018-06-17] MEDS: ACCU-CHEK XX (02:00)
[2018-06-17] MEDS: PANTOPRAZOLE (EC) 40 MG TAB PO ×2 (06:14→18:00)
[2018-06-17] MEDS: PIPER-TAZO 3.375 GM IV (PMX) 100 ML IVPB ×3 (06:14→18:23)
[2018-06-17 06:54] LABS: ADD MAN DIFF? NO
[2018-06-17] MEDS ORDERED: SEVOFLURANE 15 MIN (07:00)
[2018-06-17] MEDS ORDERED: ROCURONIUM 50 MG INJ (07:00)
[2018-06-17 07:02] LABS: WHITE BLOOD COUNT 12.6 10^3/ul (4.8-10.8)
[2018-06-17 07:02] LABS: BASOPHILS % 0.3 % (0.0-2.0); EOSINOPHILS # 0.1 10^3/ul (0.0-0.5); EOSINOPHILS % 0.5 % (0.0-7.0); HEMATOCRIT 24.1 % (42.0-52.0); HEMOGLOBIN 7.7 g/dl (14.0-18.0); LYMPHOCYTES # 1.1 10^3/ul (0.8-2.9); LYMPHOCYTES % 8.8 % (15.0-51.0); MEAN CORPUSCULAR HEMOGLOBIN 29.2 pg (29.0-33.0); MEAN CORPUSCULAR VOLUME 91.3 fl (82.0-101.0); MEAN PLATELET VOLUME 10.6 fl (7.4-10.4); MONOCYTE # 0.9 10^3/ul (0.3-0.9); MONOCYTES % 7.1 % (0.0-11.0); NEUTROPHIL # 10.3 10^3/ul (1.6-7.5); NEUTROPHILS % 82.2 % (39.0-77.0); PLATELET COUNT 319 10^3/UL (140-415); RED BLOOD COUNT 2.64 10^6/ul (4.70-6.10); RED CELL DISTRIBUTION WIDTH 13.6 % (11.5-14.5)
[2018-06-17 07:36] LABS: ANION GAP 7 (5-13); BLOOD UREA NITROGEN 9 mg/dl (7-20); CARBON DIOXIDE 28 mmol/L (21-31); CHLORIDE 102 mmol/L (97-110); CREATININE 0.54 mg/dl (0.61-1.24); Estimated GFR > 60 mL/min (>60); GLUCOSE 152 mg/dl (70-220); POTASSIUM 3.5 mmol/L (3.5-5.1); SODIUM 137 mmol/L (135-144)
[2018-06-17] MEDS: INSULIN ASPART [NOVOLOG] 3 ML PEN SC ×7 (08:00→20:19)
[2018-06-17] MEDS: BALSAM PERU/CASTOR OIL 60 GM TUBE TOP ×2 (09:04→20:20)
[2018-06-17] MEDS ORDERED: HYDROmorphONE 2 MG/ML SYG IV (10:00)
[2018-06-17] MEDS: morphine (ER) 15 MG TAB PO ×2 (10:30→20:19)
[2018-06-17] MEDS: GABAPENTIN 100 MG CAP PO ×2 (12:28→20:19)
[2018-06-17] MEDS ORDERED: SUCCINYLCHOLINE CHLORIDE 100 MG/5 ML SYG IV (15:30)
[2018-06-17] MEDS ORDERED: ONDANSETRON 4 MG INJ (15:30)
[2018-06-17] MEDS ORDERED: PROPOFOL 100 ML (15:30)
[2018-06-17] MEDS ORDERED: DEXAMETHASONE 4 MG/ML 1 ML INJ (15:30)
[2018-06-17] MEDS ORDERED: LIDOCAINE 100 MG SYRINGE (15:30)
[2018-06-17] MEDS ORDERED: PHENYLephrine (100 MCG/ML) 5ML SYG ×2 (15:31→17:11)
[2018-06-17] MEDS ORDERED: ALBUTEROL 0.083% (NEB) 2.5 MG/3 ML AMP (15:44)
[2018-06-17] MEDS ORDERED: PROVENTIL HFA 6.7GM INHALER (15:47)
[2018-06-17] MEDS ORDERED: FENTAnyl 50 MCG/ML VIAL (15:54)
[2018-06-17] MEDS ORDERED: METOCLOPRAMIDE 10 MG INJ IV (16:00)
[2018-06-17] MEDS ORDERED: LABETALOL HCL 20MG INJ IV (16:00)
[2018-06-17] MEDS ORDERED: ONDANSETRON 4 MG INJ IV (16:00)
[2018-06-17] MEDS ORDERED: hydrALAzine 20 MG INJ IV (16:00)
[2018-06-17] MEDS ORDERED: MEPERIDINE 25 MG INJ IV (16:00)
[2018-06-17] MEDS ORDERED: FENTAnyl 50 MCG/ML VIAL IV ×2 (16:00)
[2018-06-17] MEDS ORDERED: HYDROmorphONE 1 MG/5 ML IV SYRINGE IV ×2 (16:00)
[2018-06-17] MEDS ORDERED: SUGAMMADEX SODIUM 200 MG/2 ML VIAL IV ×2 (16:35→17:30)
[2018-06-17] MEDS: INSULIN GLARGINE [LANTus] (100 UNITS/ML) SYG SC (20:27)
[2018-06-18] MEDS: PIPER-TAZO 3.375 GM IV (PMX) 100 ML IVPB ×5 (00:35→23:50)
[2018-06-18] MEDS: ACCU-CHEK XX ×2 (02:00)
[2018-06-18] MEDS: PANTOPRAZOLE (EC) 40 MG TAB PO ×2 (05:36→17:42)
[2018-06-18 06:22] LABS: ADD MAN DIFF? NO
[2018-06-18 06:25] LABS: WHITE BLOOD COUNT 11.5 10^3/ul (4.8-10.8)
[2018-06-18 06:25] LABS: ABNORMAL IP MESSAGE 1; BASOPHILS % 0.2 % (0.0-2.0); HEMATOCRIT 20.9 % (42.0-52.0); MEAN CORPUSCULAR HEMOGLOBIN 28.6 pg (29.0-33.0); MEAN CORPUSCULAR HGB CONC 31.1 g/dl (32.0-37.0); MEAN CORPUSCULAR VOLUME 92.1 fl (82.0-101.0); MONOCYTE # 0.8 10^3/ul (0.3-0.9); NEUTROPHIL # 9.5 10^3/ul (1.6-7.5); NEUTROPHILS % 82.9 % (39.0-77.0); PLATELET COUNT 277 10^3/UL (140-415); POSITIVE DIFF @See below; RED BLOOD COUNT 2.27 10^6/ul (4.70-6.10); RED CELL DISTRIBUTION WIDTH 13.5 % (11.5-14.5)
[2018-06-18 06:41] LABS: HEMOGLOBIN 6.5 g/dl (14.0-18.0)
[2018-06-18 07:03] LABS: ANION GAP 4 (5-13); BLOOD UREA NITROGEN 8 mg/dl (7-20); CALCIUM 6.9 mg/dl (8.4-10.2); CARBON DIOXIDE 29 mmol/L (21-31); CHLORIDE 104 mmol/L (97-110); CREATININE 0.57 mg/dl (0.61-1.24); Estimated GFR > 60 mL/min (>60); GLUCOSE 173 mg/dl (70-220); POTASSIUM 3.9 mmol/L (3.5-5.1); SODIUM 137 mmol/L (135-144)
[2018-06-18 07:08] LABS: PHOSPHORUS 3.6 mg/dl (2.5-4.9)
[2018-06-18 07:08] LABS: MAGNESIUM 1.9 mg/dl (1.7-2.5)
[2018-06-18] MEDS: GABAPENTIN 100 MG CAP PO ×3 (08:39→20:39)
[2018-06-18] MEDS: morphine (ER) 15 MG TAB PO ×2 (08:39→20:39)
[2018-06-18] MEDS: BALSAM PERU/CASTOR OIL 60 GM TUBE TOP ×2 (08:39→20:43)
[2018-06-18] MEDS: INSULIN ASPART [NOVOLOG] 3 ML PEN SC ×7 (08:42→20:41)
[2018-06-18] MEDS: SOD CHLORIDE 0.9% 250 ML IV* (11:10)
[2018-06-18] MEDS ORDERED: DEXTROSE 50% 50 ML SYRINGE IV ×2 (14:30)
[2018-06-18] MEDS ORDERED: GLUCAGON 1 MG INJ IM (14:30)
[2018-06-18] MEDS ORDERED: GLUCOSE GEL 15 GRAM TUBE BUCCAL (14:30)
[2018-06-18] MEDS ORDERED: GLUCOSE GEL 15 GRAM TUBE PO ×2 (14:30)
[2018-06-18] MEDS: INSULIN GLARGINE [LANTus] (100 UNITS/ML) SYG SC (20:51)
[2018-06-19] MEDS: ALBUTEROL/IPRATROPIUM (NEB) 3 ML AMP HHN (01:43)
[2018-06-19] MEDS: ACCU-CHEK XX (02:00)
[2018-06-19] MEDS: PANTOPRAZOLE (EC) 40 MG TAB PO ×2 (05:55→17:48)
[2018-06-19] MEDS: PIPER-TAZO 3.375 GM IV (PMX) 100 ML IVPB ×4 (05:55→23:53)
[2018-06-19] MEDS ORDERED: DEXTROSE 50% 50 ML SYRINGE IV ×2 (06:30)
[2018-06-19 06:40] LABS: ADD MAN DIFF? NO
[2018-06-19 06:47] LABS: WHITE BLOOD COUNT 9.5 10^3/ul (4.8-10.8)
[2018-06-19 06:47] LABS: BASOPHIL # 0.1 10^3/ul (0.0-0.1); BASOPHILS % 0.5 % (0.0-2.0); EOSINOPHILS # 0.1 10^3/ul (0.0-0.5); EOSINOPHILS % 0.7 % (0.0-7.0); HEMATOCRIT 24.8 % (42.0-52.0); HEMOGLOBIN 7.9 g/dl (14.0-18.0); LYMPHOCYTES # 1.1 10^3/ul (0.8-2.9); LYMPHOCYTES % 11.3 % (15.0-51.0); MEAN CORPUSCULAR HEMOGLOBIN 28.6 pg (29.0-33.0); MEAN CORPUSCULAR HGB CONC 31.9 g/dl (32.0-37.0); MEAN CORPUSCULAR VOLUME 89.9 fl (82.0-101.0); MEAN PLATELET VOLUME 10.3 fl (7.4-10.4); MONOCYTE # 0.8 10^3/ul (0.3-0.9); MONOCYTES % 8.4 % (0.0-11.0); NEUTROPHIL # 7.4 10^3/ul (1.6-7.5); NEUTROPHILS % 77.7 % (39.0-77.0); PLATELET COUNT 260 10^3/UL (140-415); RED BLOOD COUNT 2.76 10^6/ul (4.70-6.10)
[2018-06-19 07:13] LABS: ANION GAP 4 (5-13); BLOOD UREA NITROGEN 8 mg/dl (7-20); CALCIUM 7.2 mg/dl (8.4-10.2); CARBON DIOXIDE 30 mmol/L (21-31); CHLORIDE 103 mmol/L (97-110); CREATININE 0.58 mg/dl (0.61-1.24); Estimated GFR > 60 mL/min (>60); GLUCOSE 158 mg/dl (70-220); SODIUM 137 mmol/L (135-144)
[2018-06-19] MEDS: morphine (ER) 15 MG TAB PO ×2 (08:25→20:06)
[2018-06-19] MEDS: BALSAM PERU/CASTOR OIL 60 GM TUBE TOP ×2 (08:26→20:04)
[2018-06-19] MEDS: GABAPENTIN 100 MG CAP PO ×3 (08:26→20:05)
[2018-06-19] MEDS: INSULIN ASPART [NOVOLOG] 3 ML PEN SC ×7 (08:30→20:16)
[2018-06-19 16:06] LABS: IMMEDIATE SPIN CROSSMATCH 1 3
[2018-06-19] MEDS: SOD CHLORIDE 0.9% 250 ML IV* (17:48)
[2018-06-19] MEDS: FUROSEMIDE 40 MG INJ IV (20:05)
[2018-06-19] MEDS: INSULIN GLARGINE [LANTus] (100 UNITS/ML) SYG SC (20:18)
[2018-06-20] MEDS: ACCU-CHEK XX (02:00)
[2018-06-20] MEDS ORDERED: ACCU-CHEK XX (02:00)
[2018-06-20] MEDS: PANTOPRAZOLE (EC) 40 MG TAB PO ×2 (05:29→17:39)
[2018-06-20] MEDS: PIPER-TAZO 3.375 GM IV (PMX) 100 ML IVPB (05:30)
[2018-06-20 06:10] LABS: ADD MAN DIFF? NO
[2018-06-20 06:21] LABS: BASOPHILS % 0.4 % (0.0-2.0); EOSINOPHILS # 0.1 10^3/ul (0.0-0.5); EOSINOPHILS % 0.5 % (0.0-7.0); HEMATOCRIT 28.8 % (42.0-52.0); HEMOGLOBIN 9.1 g/dl (14.0-18.0); MEAN CORPUSCULAR HEMOGLOBIN 28.3 pg (29.0-33.0); MEAN CORPUSCULAR HGB CONC 31.6 g/dl (32.0-37.0); MEAN CORPUSCULAR VOLUME 89.4 fl (82.0-101.0); MEAN PLATELET VOLUME 10.2 fl (7.4-10.4); MONOCYTE # 0.8 10^3/ul (0.3-0.9); MONOCYTES % 7.9 % (0.0-11.0); NEUTROPHILS % 79.6 % (39.0-77.0); PLATELET COUNT 270 10^3/UL (140-415); RED BLOOD COUNT 3.22 10^6/ul (4.70-6.10); RED CELL DISTRIBUTION WIDTH 14.3 % (11.5-14.5)
[2018-06-20 06:21] LABS: WHITE BLOOD COUNT 10.1 10^3/ul (4.8-10.8)
[2018-06-20 06:35] LABS: MAGNESIUM 1.8 mg/dl (1.7-2.5)
[2018-06-20 06:35] LABS: PHOSPHORUS 3.2 mg/dl (2.5-4.9)
[2018-06-20 06:43] LABS: ANION GAP 5 (5-13); BLOOD UREA NITROGEN 7 mg/dl (7-20); CALCIUM 7.4 mg/dl (8.4-10.2); CARBON DIOXIDE 35 mmol/L (21-31); CHLORIDE 99 mmol/L (97-110); CREATININE 0.66 mg/dl (0.61-1.24); Estimated GFR > 60 mL/min (>60); GLUCOSE 153 mg/dl (70-220); POTASSIUM 3.8 mmol/L (3.5-5.1); SODIUM 139 mmol/L (135-144)
[2018-06-20] MEDS: BALSAM PERU/CASTOR OIL 60 GM TUBE TOP ×2 (08:39→20:43)
[2018-06-20] MEDS: GABAPENTIN 100 MG CAP PO ×3 (08:40→20:43)
[2018-06-20] MEDS: morphine (ER) 15 MG TAB PO ×2 (08:40→20:42)
[2018-06-20] MEDS: INSULIN ASPART [NOVOLOG] 3 ML PEN SC ×7 (08:46→20:42)
[2018-06-20] MEDS: AMPICILLIN/SULB 3 GM/NS (PMX) 100 ML IVPB ×2 (13:12→17:39)
[2018-06-20] MEDS: INSULIN GLARGINE [LANTus] (100 UNITS/ML) SYG SC (20:45)
[2018-06-21] MEDS: AMPICILLIN/SULB 3 GM/NS (PMX) 100 ML IVPB ×4 (01:00→17:33)
[2018-06-21] MEDS: ACCU-CHEK XX (02:00)
[2018-06-21] MEDS: PANTOPRAZOLE (EC) 40 MG TAB PO ×2 (05:25→17:33)
[2018-06-21 06:06] LABS: ADD MAN DIFF? NO
[2018-06-21 06:10] LABS: BASOPHILS % 0.2 % (0.0-2.0); EOSINOPHILS # 0.1 10^3/ul (0.0-0.5); EOSINOPHILS % 0.5 % (0.0-7.0); HEMATOCRIT 28.1 % (42.0-52.0); HEMOGLOBIN 8.8 g/dl (14.0-18.0); LYMPHOCYTES # 1.1 10^3/ul (0.8-2.9); LYMPHOCYTES % 9.5 % (15.0-51.0); MEAN CORPUSCULAR HEMOGLOBIN 27.7 pg (29.0-33.0); MEAN CORPUSCULAR HGB CONC 31.3 g/dl (32.0-37.0); MEAN CORPUSCULAR VOLUME 88.4 fl (82.0-101.0); MEAN PLATELET VOLUME 10.2 fl (7.4-10.4); MONOCYTE # 1.1 10^3/ul (0.3-0.9); MONOCYTES % 8.8 % (0.0-11.0); NEUTROPHIL # 9.5 10^3/ul (1.6-7.5); NEUTROPHILS % 79.4 % (39.0-77.0); PLATELET COUNT 254 10^3/UL (140-415); RED BLOOD COUNT 3.18 10^6/ul (4.70-6.10)
[2018-06-21 07:29] LABS: C-REACTIVE PROTEIN 12.8 mg/dl (0.0-0.9); ERYTHROCYTE SEDIMENTATION RATE 95 mm/Hr (0-20)
[2018-06-21] MEDS: GABAPENTIN 100 MG CAP PO ×3 (08:42→21:04)
[2018-06-21] MEDS: morphine (ER) 15 MG TAB PO ×2 (08:42→21:04)
[2018-06-21] MEDS: BALSAM PERU/CASTOR OIL 60 GM TUBE TOP ×2 (08:43→21:05)
[2018-06-21] MEDS: INSULIN ASPART [NOVOLOG] 3 ML PEN SC ×7 (08:50→21:06)
[2018-06-21] MEDS: INSULIN GLARGINE [LANTus] (100 UNITS/ML) SYG SC (21:06)
[2018-06-22] MEDS: AMPICILLIN/SULB 3 GM/NS (PMX) 100 ML IVPB ×4 (00:05→17:22)
[2018-06-22] MEDS: ACCU-CHEK XX (02:23)
[2018-06-22] MEDS: ONDANSETRON 4 MG INJ IV (04:07)
[2018-06-22 05:45] LABS: ADD MAN DIFF? NO
[2018-06-22 05:53] LABS: WHITE BLOOD COUNT 10.6 10^3/ul (4.8-10.8)
[2018-06-22 05:53] LABS: BASOPHILS % 0.3 % (0.0-2.0); EOSINOPHILS # 0.1 10^3/ul (0.0-0.5); EOSINOPHILS % 0.5 % (0.0-7.0); HEMATOCRIT 29.4 % (42.0-52.0); HEMOGLOBIN 9.3 g/dl (14.0-18.0); LYMPHOCYTES # 0.9 10^3/ul (0.8-2.9); LYMPHOCYTES % 8.9 % (15.0-51.0); MEAN CORPUSCULAR HEMOGLOBIN 27.8 pg (29.0-33.0); MEAN CORPUSCULAR HGB CONC 31.6 g/dl (32.0-37.0); MEAN PLATELET VOLUME 10.3 fl (7.4-10.4); MONOCYTES % 9.7 % (0.0-11.0); NEUTROPHIL # 8.4 10^3/ul (1.6-7.5); NEUTROPHILS % 78.7 % (39.0-77.0); PLATELET COUNT 282 10^3/UL (140-415); RED BLOOD COUNT 3.34 10^6/ul (4.70-6.10); RED CELL DISTRIBUTION WIDTH 13.7 % (11.5-14.5)
[2018-06-22] MEDS: PANTOPRAZOLE 40 MG INJ IV ×2 (05:59→17:21)
[2018-06-22 06:23] LABS: ANION GAP 6 (5-13); BLOOD UREA NITROGEN 6 mg/dl (7-20); CALCIUM 7.4 mg/dl (8.4-10.2); CARBON DIOXIDE 32 mmol/L (21-31); CHLORIDE 100 mmol/L (97-110); CREATININE 0.49 mg/dl (0.61-1.24); Estimated GFR > 60 mL/min (>60); GLUCOSE 208 mg/dl (70-220); POTASSIUM 3.4 mmol/L (3.5-5.1); SODIUM 138 mmol/L (135-144)
[2018-06-22] MEDS: INSULIN ASPART [NOVOLOG] 3 ML PEN SC ×7 (08:00→21:00)
[2018-06-22] MEDS: GABAPENTIN 100 MG CAP PO ×3 (08:05→21:03)
[2018-06-22] MEDS: morphine (ER) 15 MG TAB PO ×2 (08:06→21:03)
[2018-06-22] MEDS: BALSAM PERU/CASTOR OIL 60 GM TUBE TOP ×2 (08:06→21:00)
[2018-06-22] MEDS: ENOXAPARIN 40 MG/0.4 ML SYG SC (08:08)
[2018-06-22 12:23] LABS: ERYTHROCYTE SEDIMENTATION RATE 84 mm/Hr (0-20)
[2018-06-22] MEDS: metFORMIN 500 MG TAB PO (17:22)
[2018-06-22] MEDS: INSULIN GLARGINE [LANTus] (100 UNITS/ML) SYG SC (20:32)
[2018-06-23] MEDS: AMPICILLIN/SULB 3 GM/NS (PMX) 100 ML IVPB ×2 (00:05→06:21)
[2018-06-23] MEDS: ACCU-CHEK XX (02:00)
[2018-06-23] MEDS: PANTOPRAZOLE 40 MG INJ IV (06:21)
[2018-06-23] MEDS: INSULIN ASPART [NOVOLOG] 3 ML PEN SC ×7 (08:00→20:57)
[2018-06-23] MEDS: metFORMIN 500 MG TAB PO ×2 (08:21→17:25)
[2018-06-23] MEDS: GABAPENTIN 100 MG CAP PO ×3 (08:21→20:56)
[2018-06-23] MEDS: morphine (ER) 15 MG TAB PO ×2 (08:22→20:56)
[2018-06-23] MEDS: ENOXAPARIN 40 MG/0.4 ML SYG SC (08:26)
[2018-06-23] MEDS: BALSAM PERU/CASTOR OIL 60 GM TUBE TOP (08:27)
[2018-06-23] MEDS: AMOXICILLIN/CLAV 875 MG TAB PO ×2 (10:20→20:56)
[2018-06-23] MEDS: COLLAGENASE 5 GM (UD JAR) TOP (13:13)
[2018-06-23] MEDS: NYSTATIN 30 GM POWDER BTL TOP ×2 (15:07→20:58)
[2018-06-23] MEDS: PANTOPRAZOLE (EC) 40 MG TAB PO (17:25)
[2018-06-23] MEDS: INSULIN GLARGINE [LANTus] (100 UNITS/ML) SYG SC (21:02)
[2018-06-24] MEDS: ACCU-CHEK XX (02:00)
[2018-06-24] MEDS: PANTOPRAZOLE (EC) 40 MG TAB PO ×2 (06:18→18:10)
[2018-06-24] MEDS: LEVOFLOXACIN 500 MG TAB PO (06:18)
[2018-06-24] MEDS: INSULIN ASPART [NOVOLOG] 3 ML PEN SC ×7 (08:00→20:46)
[2018-06-24] MEDS: NYSTATIN 30 GM POWDER BTL TOP ×2 (08:08→20:51)
[2018-06-24] MEDS: COLLAGENASE 5 GM (UD JAR) TOP (08:08)
[2018-06-24] MEDS: AMOXICILLIN/CLAV 875 MG TAB PO ×2 (08:09→20:46)
[2018-06-24] MEDS: morphine (ER) 15 MG TAB PO (08:09)
[2018-06-24] MEDS: GABAPENTIN 100 MG CAP PO ×3 (08:09→20:46)
[2018-06-24] MEDS: metFORMIN 500 MG TAB PO ×2 (08:09→18:10)
[2018-06-24] MEDS: ENOXAPARIN 40 MG/0.4 ML SYG SC (08:12)
[2018-06-24] MEDS ORDERED: IBUPROFEN 600 MG TAB PO (12:30)
[2018-06-24] MEDS: ACETAMINOPHEN 500 MG TAB PO ×2 (12:40→20:45)
[2018-06-24] MEDS: INSULIN GLARGINE [LANTus] (100 UNITS/ML) SYG SC (20:51)
[2018-06-25] MEDS: ACCU-CHEK XX (02:00)
[2018-06-25 05:12] LABS: ADD MAN DIFF? NO
[2018-06-25 05:16] LABS: WHITE BLOOD COUNT 11.5 10^3/ul (4.8-10.8)
[2018-06-25 05:16] LABS: BASOPHIL # 0.1 10^3/ul (0.0-0.1); BASOPHILS % 0.4 % (0.0-2.0); EOSINOPHILS # 0.2 10^3/ul (0.0-0.5); EOSINOPHILS % 1.7 % (0.0-7.0); HEMATOCRIT 30.5 % (42.0-52.0); HEMOGLOBIN 9.4 g/dl (14.0-18.0); LYMPHOCYTES # 1.3 10^3/ul (0.8-2.9); LYMPHOCYTES % 10.9 % (15.0-51.0); MEAN CORPUSCULAR HEMOGLOBIN 27.6 pg (29.0-33.0); MEAN CORPUSCULAR HGB CONC 30.8 g/dl (32.0-37.0); MEAN CORPUSCULAR VOLUME 89.4 fl (82.0-101.0); MEAN PLATELET VOLUME 10.4 fl (7.4-10.4); MONOCYTE # 1.2 10^3/ul (0.3-0.9); MONOCYTES % 10.1 % (0.0-11.0); NEUTROPHIL # 8.4 10^3/ul (1.6-7.5); NEUTROPHILS % 73.1 % (39.0-77.0); PLATELET COUNT 335 10^3/UL (140-415); RED BLOOD COUNT 3.41 10^6/ul (4.70-6.10); RED CELL DISTRIBUTION WIDTH 13.3 % (11.5-14.5)
[2018-06-25] MEDS: PANTOPRAZOLE (EC) 40 MG TAB PO ×2 (05:29→17:27)
[2018-06-25] MEDS: LEVOFLOXACIN 500 MG TAB PO (05:29)
[2018-06-25 05:57] LABS: ANION GAP 7 (5-13); BLOOD UREA NITROGEN 8 mg/dl (7-20); CALCIUM 8.2 mg/dl (8.4-10.2); CARBON DIOXIDE 31 mmol/L (21-31); CHLORIDE 100 mmol/L (97-110); CREATININE 0.56 mg/dl (0.61-1.24); Estimated GFR > 60 mL/min (>60); GLUCOSE 192 mg/dl (70-220); PHOSPHORUS 4.3 mg/dl (2.5-4.9); POTASSIUM 3.9 mmol/L (3.5-5.1); SODIUM 138 mmol/L (135-144)
[2018-06-25] MEDS: INSULIN ASPART [NOVOLOG] 3 ML PEN SC ×7 (08:17→20:34)
[2018-06-25] MEDS: metFORMIN 500 MG TAB PO ×2 (09:31→17:18)
[2018-06-25] MEDS: GABAPENTIN 100 MG CAP PO ×3 (09:31→20:33)
[2018-06-25] MEDS: ENOXAPARIN 40 MG/0.4 ML SYG SC (09:31)
[2018-06-25] MEDS: AMOXICILLIN/CLAV 875 MG TAB PO ×2 (09:32→20:33)
[2018-06-25] MEDS: COLLAGENASE 5 GM (UD JAR) TOP (09:32)
[2018-06-25] MEDS: NYSTATIN 30 GM POWDER BTL TOP ×2 (09:33→20:33)
[2018-06-25] MEDS: BISACODYL (EC) 5 MG TAB PO (20:35)
[2018-06-25] MEDS: INSULIN GLARGINE [LANTus] (100 UNITS/ML) SYG SC (20:43)
[2018-06-25] MEDS: HYDROCODONE/APAP (5/325) TAB PO (23:33)
[2018-06-26] MEDS: ACCU-CHEK XX (01:41)
[2018-06-26] MEDS: PANTOPRAZOLE (EC) 40 MG TAB PO ×2 (05:41→17:52)
[2018-06-26] MEDS: LEVOFLOXACIN 500 MG TAB PO (05:41)
[2018-06-26] MEDS: HYDROCODONE/APAP (5/325) TAB PO ×3 (05:45→20:38)
[2018-06-26] MEDS: NYSTATIN 30 GM POWDER BTL TOP ×2 (08:22→20:42)
[2018-06-26] MEDS: AMOXICILLIN/CLAV 875 MG TAB PO ×2 (08:22→20:36)
[2018-06-26] MEDS: GABAPENTIN 100 MG CAP PO ×3 (08:22→20:37)
[2018-06-26] MEDS: metFORMIN 500 MG TAB PO ×2 (08:22→17:52)
[2018-06-26] MEDS: INSULIN ASPART [NOVOLOG] 3 ML PEN SC ×7 (08:28→20:41)
[2018-06-26] MEDS: ENOXAPARIN 40 MG/0.4 ML SYG SC (08:28)
[2018-06-26] MEDS: COLLAGENASE 5 GM (UD JAR) TOP (08:36)
[2018-06-26] MEDS: INSULIN GLARGINE [LANTus] (100 UNITS/ML) SYG SC (20:39)
[2018-06-27] MEDS: ACCU-CHEK XX (02:00)
[2018-06-27] MEDS: PANTOPRAZOLE (EC) 40 MG TAB PO ×2 (06:18→18:02)
[2018-06-27] MEDS: LEVOFLOXACIN 500 MG TAB PO (06:18)
[2018-06-27] MEDS: HYDROCODONE/APAP (5/325) TAB PO (06:19)
[2018-06-27] MEDS: INSULIN ASPART [NOVOLOG] 3 ML PEN SC ×7 (08:00→21:02)
[2018-06-27] MEDS: AMOXICILLIN/CLAV 875 MG TAB PO ×2 (08:14→20:59)
[2018-06-27] MEDS: GABAPENTIN 100 MG CAP PO ×3 (08:14→20:59)
[2018-06-27] MEDS: metFORMIN 500 MG TAB PO ×2 (08:15→18:03)
[2018-06-27] MEDS: COLLAGENASE 5 GM (UD JAR) TOP (08:15)
[2018-06-27] MEDS: NYSTATIN 30 GM POWDER BTL TOP ×2 (08:16→20:59)
[2018-06-27] MEDS: ENOXAPARIN 40 MG/0.4 ML SYG SC (08:20)
[2018-06-27] MEDS: MIDAZOLAM 1 MG/ML 2 ML INJ (08:21)
[2018-06-27] MEDS: LIDOCAINE 2% JELLY 5 ML (08:21)
[2018-06-27] MEDS: PROPOFOL 20 ML (08:21)
[2018-06-27] MEDS: INSULIN GLARGINE [LANTus] (100 UNITS/ML) SYG SC (21:01)
[2018-06-27] MEDS: ZOLPIDEM 5 MG TAB PO (22:05)
[2018-06-28] MEDS: ACCU-CHEK XX (01:12)
[2018-06-28] MEDS: PANTOPRAZOLE (EC) 40 MG TAB PO ×2 (05:21→17:40)
[2018-06-28] MEDS: LEVOFLOXACIN 500 MG TAB PO (05:21)
[2018-06-28 05:46] LABS: ADD MAN DIFF? NO
[2018-06-28 05:49] LABS: WHITE BLOOD COUNT 13.9 10^3/ul (4.8-10.8)
[2018-06-28 05:49] LABS: BASOPHIL # 0.1 10^3/ul (0.0-0.1); BASOPHILS % 0.4 % (0.0-2.0); EOSINOPHILS # 0.2 10^3/ul (0.0-0.5); EOSINOPHILS % 1.3 % (0.0-7.0); HEMATOCRIT 29.5 % (42.0-52.0); HEMOGLOBIN 9.3 g/dl (14.0-18.0); LYMPHOCYTES # 1.7 10^3/ul (0.8-2.9); LYMPHOCYTES % 12.5 % (15.0-51.0); MEAN CORPUSCULAR HEMOGLOBIN 27.1 pg (29.0-33.0); MEAN CORPUSCULAR HGB CONC 31.5 g/dl (32.0-37.0); MEAN PLATELET VOLUME 10.2 fl (7.4-10.4); MONOCYTE # 1.5 10^3/ul (0.3-0.9); MONOCYTES % 10.4 % (0.0-11.0); NEUTROPHIL # 9.9 10^3/ul (1.6-7.5); NEUTROPHILS % 71.2 % (39.0-77.0); PLATELET COUNT 440 10^3/UL (140-415); RED BLOOD COUNT 3.43 10^6/ul (4.70-6.10); RED CELL DISTRIBUTION WIDTH 13.6 % (11.5-14.5)
[2018-06-28 06:08] LABS: ANION GAP 8 (5-13); BLOOD UREA NITROGEN 9 mg/dl (7-20); CALCIUM 8.4 mg/dl (8.4-10.2); CARBON DIOXIDE 28 mmol/L (21-31); CHLORIDE 101 mmol/L (97-110); CREATININE 0.46 mg/dl (0.61-1.24); Estimated GFR > 60 mL/min (>60); GLUCOSE 154 mg/dl (70-220); POTASSIUM 3.8 mmol/L (3.5-5.1); SODIUM 137 mmol/L (135-144)
[2018-06-28] MEDS: AMOXICILLIN/CLAV 875 MG TAB PO ×2 (08:29→21:23)
[2018-06-28] MEDS: COLLAGENASE 5 GM (UD JAR) TOP (08:29)
[2018-06-28] MEDS: GABAPENTIN 100 MG CAP PO ×3 (08:29→21:23)
[2018-06-28] MEDS: metFORMIN 500 MG TAB PO ×2 (08:29→17:34)
[2018-06-28] MEDS: INSULIN ASPART [NOVOLOG] 3 ML PEN SC ×7 (08:33→21:00)
[2018-06-28] MEDS: ENOXAPARIN 40 MG/0.4 ML SYG SC (08:34)
[2018-06-28] MEDS: NYSTATIN 30 GM POWDER BTL TOP ×2 (08:35→21:36)
[2018-06-28] MEDS: HYDROCODONE/APAP (5/325) TAB PO ×2 (14:43→21:34)
[2018-06-28] MEDS ORDERED: ZOLPIDEM 5 MG TAB PO (21:00)
[2018-06-28] MEDS: INSULIN GLARGINE [LANTus] (100 UNITS/ML) SYG SC (21:33)
[2018-06-28] MEDS: ZOLPIDEM 5 MG TAB PO (22:35)
[2018-06-29] MEDS: ACCU-CHEK XX (02:00)
[2018-06-29] MEDS: HYDROCODONE/APAP (5/325) TAB PO (03:42)
[2018-06-29 05:06] LABS: ADD MAN DIFF? NO
[2018-06-29 05:08] LABS: WHITE BLOOD COUNT 16.5 10^3/ul (4.8-10.8)
[2018-06-29 05:08] LABS: ABNORMAL IP MESSAGE 1; BASOPHIL # 0.1 10^3/ul (0.0-0.1); BASOPHILS % 0.4 % (0.0-2.0); EOSINOPHILS # 0.2 10^3/ul (0.0-0.5); EOSINOPHILS % 0.9 % (0.0-7.0); HEMATOCRIT 28.1 % (42.0-52.0); HEMOGLOBIN 8.9 g/dl (14.0-18.0); LYMPHOCYTES # 1.6 10^3/ul (0.8-2.9); LYMPHOCYTES % 9.4 % (15.0-51.0); MEAN CORPUSCULAR HEMOGLOBIN 27.4 pg (29.0-33.0); MEAN CORPUSCULAR HGB CONC 31.7 g/dl (32.0-37.0); MEAN CORPUSCULAR VOLUME 86.5 fl (82.0-101.0); MEAN PLATELET VOLUME 10.6 fl (7.4-10.4); MONOCYTE # 1.6 10^3/ul (0.3-0.9); MONOCYTES % 9.8 % (0.0-11.0); NEUTROPHIL # 12.6 10^3/ul (1.6-7.5); NEUTROPHILS % 76.3 % (39.0-77.0); PLATELET COUNT 418 10^3/UL (140-415); POSITIVE DIFF @See below; RED BLOOD COUNT 3.25 10^6/ul (4.70-6.10); RED CELL DISTRIBUTION WIDTH 13.6 % (11.5-14.5)
[2018-06-29] MEDS: LEVOFLOXACIN 500 MG TAB PO (05:25)
[2018-06-29] MEDS: PANTOPRAZOLE (EC) 40 MG TAB PO ×2 (05:25→17:30)
[2018-06-29] MEDS: SOD CHLORIDE 0.9% 500 ML IV (05:26)
[2018-06-29 05:41] LABS: ANION GAP 10 (5-13); BLOOD UREA NITROGEN 13 mg/dl (7-20); CALCIUM 8.1 mg/dl (8.4-10.2); CARBON DIOXIDE 28 mmol/L (21-31); CHLORIDE 97 mmol/L (97-110); CREATININE 0.54 mg/dl (0.61-1.24); Estimated GFR > 60 mL/min (>60); GLUCOSE 215 mg/dl (70-220); POTASSIUM 4.3 mmol/L (3.5-5.1); SODIUM 135 mmol/L (135-144)
[2018-06-29] MEDS: NYSTATIN 30 GM POWDER BTL TOP ×2 (08:12→20:21)
[2018-06-29] MEDS: metFORMIN 500 MG TAB PO ×2 (08:13→17:30)
[2018-06-29] MEDS: GABAPENTIN 100 MG CAP PO ×3 (08:13→20:21)
[2018-06-29] MEDS: AMOXICILLIN/CLAV 875 MG TAB PO ×2 (08:13→20:21)
[2018-06-29] MEDS: COLLAGENASE 5 GM (UD JAR) TOP (08:14)
[2018-06-29] MEDS: ENOXAPARIN 40 MG/0.4 ML SYG SC (08:19)
[2018-06-29] MEDS: INSULIN ASPART [NOVOLOG] 3 ML PEN SC ×7 (08:20→20:23)
[2018-06-29] MEDS: INSULIN GLARGINE [LANTus] (100 UNITS/ML) SYG SC (20:27)
[2018-06-30] MEDS: ACCU-CHEK XX (02:00)
[2018-06-30] MEDS: PANTOPRAZOLE (EC) 40 MG TAB PO ×2 (05:02→17:37)
[2018-06-30] MEDS: LEVOFLOXACIN 500 MG TAB PO (05:02)
[2018-06-30] MEDS: INSULIN ASPART [NOVOLOG] 3 ML PEN SC ×6 (05:16→17:42)
[2018-06-30] MEDS: metFORMIN 500 MG TAB PO ×2 (08:00→17:37)
[2018-06-30] MEDS: DEXTROSE 5%-0.45% NACL 1,000 ML IV (08:48)
[2018-06-30] MEDS: GABAPENTIN 100 MG CAP PO ×3 (09:00→20:23)
[2018-06-30] MEDS: AMOXICILLIN/CLAV 875 MG TAB PO ×2 (09:00→20:23)
[2018-06-30] MEDS: ENOXAPARIN 40 MG/0.4 ML SYG SC (09:00)
[2018-06-30] MEDS: COLLAGENASE 5 GM (UD JAR) TOP (09:08)
[2018-06-30] MEDS: NYSTATIN 30 GM POWDER BTL TOP ×2 (09:08→20:25)
[2018-06-30 16:41] LABS: ADD MAN DIFF? NO
[2018-06-30 16:44] LABS: WHITE BLOOD COUNT 14.1 10^3/ul (4.8-10.8)
[2018-06-30 16:44] LABS: BASOPHIL # 0.1 10^3/ul (0.0-0.1); BASOPHILS % 0.4 % (0.0-2.0); EOSINOPHILS # 0.1 10^3/ul (0.0-0.5); HEMOGLOBIN 9.6 g/dl (14.0-18.0); LYMPHOCYTES # 1.4 10^3/ul (0.8-2.9); LYMPHOCYTES % 9.7 % (15.0-51.0); MEAN CORPUSCULAR HEMOGLOBIN 27.6 pg (29.0-33.0); MEAN CORPUSCULAR VOLUME 86.2 fl (82.0-101.0); MEAN PLATELET VOLUME 10.2 fl (7.4-10.4); MONOCYTE # 1.4 10^3/ul (0.3-0.9); MONOCYTES % 10.1 % (0.0-11.0); NEUTROPHIL # 10.6 10^3/ul (1.6-7.5); NEUTROPHILS % 75.2 % (39.0-77.0); PLATELET COUNT 407 10^3/UL (140-415); RED BLOOD COUNT 3.48 10^6/ul (4.70-6.10); RED CELL DISTRIBUTION WIDTH 13.4 % (11.5-14.5)
[2018-06-30 17:10] LABS: ANION GAP 8 (5-13); BLOOD UREA NITROGEN 11 mg/dl (7-20); CALCIUM 8.5 mg/dl (8.4-10.2); CARBON DIOXIDE 31 mmol/L (21-31); CHLORIDE 98 mmol/L (97-110); CREATININE 0.42 mg/dl (0.61-1.24); Estimated GFR > 60 mL/min (>60); GLUCOSE 172 mg/dl (70-220); POTASSIUM 3.8 mmol/L (3.5-5.1); SODIUM 137 mmol/L (135-144)
[2018-06-30] MEDS ORDERED: INSULIN ASPART [NOVOLOG] 3 ML PEN SC (17:30)
[2018-06-30] MEDS: Insulin NOVOLOG SS MODERATE Algorithm (SS with meals and bedtime) SC ×2 (17:41→20:26)
[2018-06-30] MEDS: HYDROCODONE/APAP (5/325) TAB PO (17:47)
[2018-06-30] MEDS: INSULIN GLARGINE [LANTus] (100 UNITS/ML) SYG SC (20:25)
[2018-07-01] MEDS: ACCU-CHEK XX (01:50)
[2018-07-01] MEDS: PANTOPRAZOLE (EC) 40 MG TAB PO ×2 (05:49→17:40)
[2018-07-01] MEDS: LEVOFLOXACIN 500 MG TAB PO (05:49)
[2018-07-01 06:34] LABS: ADD MAN DIFF? NO
[2018-07-01 06:47] LABS: ABNORMAL IP MESSAGE 1; BASOPHIL # 0.1 10^3/ul (0.0-0.1); BASOPHILS % 0.3 % (0.0-2.0); EOSINOPHILS # 0.2 10^3/ul (0.0-0.5); EOSINOPHILS % 1.2 % (0.0-7.0); HEMATOCRIT 29.2 % (42.0-52.0); HEMOGLOBIN 9.5 g/dl (14.0-18.0); LYMPHOCYTES # 1.5 10^3/ul (0.8-2.9); LYMPHOCYTES % 9.8 % (15.0-51.0); MEAN CORPUSCULAR HEMOGLOBIN 27.8 pg (29.0-33.0); MEAN CORPUSCULAR HGB CONC 32.5 g/dl (32.0-37.0); MEAN CORPUSCULAR VOLUME 85.4 fl (82.0-101.0); MEAN PLATELET VOLUME 10.4 fl (7.4-10.4); MONOCYTE # 1.5 10^3/ul (0.3-0.9); MONOCYTES % 9.8 % (0.0-11.0); NEUTROPHIL # 11.8 10^3/ul (1.6-7.5); NEUTROPHILS % 76.2 % (39.0-77.0); PLATELET COUNT 391 10^3/UL (140-415); POSITIVE DIFF @See below; RED BLOOD COUNT 3.42 10^6/ul (4.70-6.10); RED CELL DISTRIBUTION WIDTH 13.5 % (11.5-14.5)
[2018-07-01 06:47] LABS: WHITE BLOOD COUNT 15.5 10^3/ul (4.8-10.8)
[2018-07-01 07:04] LABS: ANION GAP 5 (5-13); BLOOD UREA NITROGEN 11 mg/dl (7-20); CALCIUM 8.5 mg/dl (8.4-10.2); CARBON DIOXIDE 30 mmol/L (21-31); CHLORIDE 99 mmol/L (97-110); CREATININE 0.46 mg/dl (0.61-1.24); Estimated GFR > 60 mL/min (>60); GLUCOSE 174 mg/dl (70-220); POTASSIUM 3.9 mmol/L (3.5-5.1); SODIUM 134 mmol/L (135-144)
[2018-07-01] MEDS: COLLAGENASE 5 GM (UD JAR) TOP (08:27)
[2018-07-01] MEDS: GABAPENTIN 100 MG CAP PO ×3 (08:27→20:52)
[2018-07-01] MEDS: HYDROCODONE/APAP (5/325) TAB PO ×2 (08:27→17:41)
[2018-07-01] MEDS: AMOXICILLIN/CLAV 875 MG TAB PO ×2 (08:27→20:51)
[2018-07-01] MEDS: metFORMIN 500 MG TAB PO ×2 (08:27→17:40)
[2018-07-01] MEDS: NYSTATIN 30 GM POWDER BTL TOP ×2 (08:28→20:52)
[2018-07-01] MEDS: INSULIN ASPART [NOVOLOG] 3 ML PEN SC ×3 (08:32→17:43)
[2018-07-01] MEDS: Insulin NOVOLOG SS MODERATE Algorithm (SS with meals and bedtime) SC ×4 (08:33→20:46)
[2018-07-01] MEDS: ENOXAPARIN 40 MG/0.4 ML SYG SC (08:33)
[2018-07-01] MEDS: INSULIN GLARGINE [LANTus] (100 UNITS/ML) SYG SC (20:49)
[2018-07-02] MEDS: ACCU-CHEK XX (02:00)
[2018-07-02] MEDS: PANTOPRAZOLE (EC) 40 MG TAB PO ×2 (05:55→17:35)
[2018-07-02] MEDS: LEVOFLOXACIN 500 MG TAB PO (05:55)
[2018-07-02 06:45] LABS: ADD MAN DIFF? NO
[2018-07-02 06:48] LABS: WHITE BLOOD COUNT 14.3 10^3/ul (4.8-10.8)
[2018-07-02 06:48] LABS: BASOPHIL # 0.1 10^3/ul (0.0-0.1); BASOPHILS % 0.4 % (0.0-2.0); EOSINOPHILS # 0.2 10^3/ul (0.0-0.5); EOSINOPHILS % 1.2 % (0.0-7.0); HEMATOCRIT 27.9 % (42.0-52.0); LYMPHOCYTES # 1.4 10^3/ul (0.8-2.9); LYMPHOCYTES % 10.1 % (15.0-51.0); MEAN CORPUSCULAR HEMOGLOBIN 27.2 pg (29.0-33.0); MEAN CORPUSCULAR HGB CONC 32.3 g/dl (32.0-37.0); MEAN CORPUSCULAR VOLUME 84.3 fl (82.0-101.0); MEAN PLATELET VOLUME 10.6 fl (7.4-10.4); MONOCYTE # 1.4 10^3/ul (0.3-0.9); MONOCYTES % 9.7 % (0.0-11.0); NEUTROPHIL # 10.7 10^3/ul (1.6-7.5); PLATELET COUNT 379 10^3/UL (140-415); RED BLOOD COUNT 3.31 10^6/ul (4.70-6.10); RED CELL DISTRIBUTION WIDTH 13.5 % (11.5-14.5)
[2018-07-02 07:05] LABS: ANION GAP 7 (5-13); BLOOD UREA NITROGEN 11 mg/dl (7-20); CALCIUM 8.4 mg/dl (8.4-10.2); CARBON DIOXIDE 29 mmol/L (21-31); CHLORIDE 98 mmol/L (97-110); CREATININE 0.44 mg/dl (0.61-1.24); Estimated GFR > 60 mL/min (>60); GLUCOSE 168 mg/dl (70-220); POTASSIUM 4.1 mmol/L (3.5-5.1); SODIUM 134 mmol/L (135-144)
[2018-07-02] MEDS: metFORMIN 500 MG TAB PO ×2 (08:21→17:36)
[2018-07-02] MEDS: INSULIN ASPART [NOVOLOG] 3 ML PEN SC ×3 (08:22→17:31)
[2018-07-02] MEDS: Insulin NOVOLOG SS MODERATE Algorithm (SS with meals and bedtime) SC ×4 (08:22→20:35)
[2018-07-02] MEDS: GABAPENTIN 100 MG CAP PO ×3 (08:23→20:32)
[2018-07-02] MEDS: AMOXICILLIN/CLAV 875 MG TAB PO ×2 (08:23→20:31)
[2018-07-02] MEDS: ENOXAPARIN 40 MG/0.4 ML SYG SC (08:23)
[2018-07-02] MEDS: NYSTATIN 30 GM POWDER BTL TOP ×2 (08:24→20:33)
[2018-07-02] MEDS: COLLAGENASE 5 GM (UD JAR) TOP (08:24)
[2018-07-02] MEDS: HYDROCODONE/APAP (5/325) TAB PO ×2 (08:35→20:33)
[2018-07-02] MEDS: INSULIN GLARGINE [LANTus] (100 UNITS/ML) SYG SC (20:30)
[2018-07-03] MEDS: ACCU-CHEK XX (02:00)
[2018-07-03] MEDS: HYDROCODONE/APAP (5/325) TAB PO (05:42)
[2018-07-03] MEDS: PANTOPRAZOLE (EC) 40 MG TAB PO ×2 (05:42→17:31)
[2018-07-03] MEDS: LEVOFLOXACIN 500 MG TAB PO (05:42)
[2018-07-03] MEDS: GABAPENTIN 100 MG CAP PO ×3 (08:48→21:28)
[2018-07-03] MEDS: metFORMIN 500 MG TAB PO ×2 (08:48→17:31)
[2018-07-03] MEDS: AMOXICILLIN/CLAV 875 MG TAB PO ×2 (08:48→21:28)
[2018-07-03] MEDS: Insulin NOVOLOG SS MODERATE Algorithm (SS with meals and bedtime) SC ×4 (08:51→21:00)
[2018-07-03] MEDS: NYSTATIN 30 GM POWDER BTL TOP ×2 (08:52→21:29)
[2018-07-03] MEDS: ENOXAPARIN 40 MG/0.4 ML SYG SC (08:52)
[2018-07-03] MEDS: INSULIN ASPART [NOVOLOG] 3 ML PEN SC ×3 (08:52→17:38)
[2018-07-03] MEDS: COLLAGENASE 5 GM (UD JAR) TOP (08:52)
[2018-07-03] MEDS: INSULIN GLARGINE [LANTus] (100 UNITS/ML) SYG SC (21:33)
[2018-07-03] MEDS: ZOLPIDEM 5 MG TAB PO (23:25)
[2018-07-04] MEDS: ACCU-CHEK XX (02:00)
[2018-07-04 05:30] LABS: ADD MAN DIFF? NO
[2018-07-04 05:36] LABS: BASOPHIL # 0.1 10^3/ul (0.0-0.1); BASOPHILS % 0.6 % (0.0-2.0); EOSINOPHILS # 0.1 10^3/ul (0.0-0.5); EOSINOPHILS % 0.5 % (0.0-7.0); HEMATOCRIT 29.4 % (42.0-52.0); HEMOGLOBIN 9.1 g/dl (14.0-18.0); LYMPHOCYTES # 1.6 10^3/ul (0.8-2.9); LYMPHOCYTES % 9.6 % (15.0-51.0); MEAN CORPUSCULAR HEMOGLOBIN 26.5 pg (29.0-33.0); MEAN CORPUSCULAR VOLUME 85.5 fl (82.0-101.0); MEAN PLATELET VOLUME 10.3 fl (7.4-10.4); MONOCYTE # 1.5 10^3/ul (0.3-0.9); NEUTROPHIL # 12.5 10^3/ul (1.6-7.5); NEUTROPHILS % 76.2 % (39.0-77.0); PLATELET COUNT 377 10^3/UL (140-415); RED BLOOD COUNT 3.44 10^6/ul (4.70-6.10); RED CELL DISTRIBUTION WIDTH 13.6 % (11.5-14.5)
[2018-07-04 05:36] LABS: WHITE BLOOD COUNT 16.4 10^3/ul (4.8-10.8)
[2018-07-04 06:08] LABS: PHOSPHORUS 4.3 mg/dl (2.5-4.9)
[2018-07-04 06:16] LABS: ANION GAP 8 (5-13); BLOOD UREA NITROGEN 13 mg/dl (7-20); CALCIUM 8.6 mg/dl (8.4-10.2); CARBON DIOXIDE 30 mmol/L (21-31); CHLORIDE 95 mmol/L (97-110); Estimated GFR > 60 mL/min (>60); GLUCOSE 157 mg/dl (70-220); POTASSIUM 4.5 mmol/L (3.5-5.1); SODIUM 133 mmol/L (135-144)
[2018-07-04] MEDS: PANTOPRAZOLE (EC) 40 MG TAB PO ×2 (06:45→17:27)
[2018-07-04] MEDS: LEVOFLOXACIN 500 MG TAB PO (06:45)
[2018-07-04] MEDS: HYDROCODONE/APAP (5/325) TAB PO (06:55)
[2018-07-04] MEDS: INSULIN ASPART [NOVOLOG] 3 ML PEN SC ×3 (08:20→17:31)
[2018-07-04] MEDS: Insulin NOVOLOG SS MODERATE Algorithm (SS with meals and bedtime) SC ×4 (08:20→20:13)
[2018-07-04] MEDS: GABAPENTIN 100 MG CAP PO ×3 (08:41→20:11)
[2018-07-04] MEDS: metFORMIN 500 MG TAB PO ×2 (08:41→17:27)
[2018-07-04] MEDS: NYSTATIN 30 GM POWDER BTL TOP ×2 (08:42→20:10)
[2018-07-04] MEDS: COLLAGENASE 5 GM (UD JAR) TOP (08:42)
[2018-07-04] MEDS: ENOXAPARIN 40 MG/0.4 ML SYG SC (08:44)
[2018-07-04] MEDS: AMOXICILLIN/CLAV 875 MG TAB PO ×2 (10:27→20:11)
[2018-07-04] MEDS: ACETAMINOPHEN 500 MG TAB PO (20:10)
[2018-07-04] MEDS: INSULIN GLARGINE [LANTus] (100 UNITS/ML) SYG SC (20:25)
[2018-07-05] MEDS: ACCU-CHEK XX (02:00)
[2018-07-05 04:16] LABS: LACTIC ACID 3.6 mmol/L (0.5-2.0)
[2018-07-05] MEDS: SOD CHLORIDE 0.9% 1,000 ML IV (04:34)
[2018-07-05] MEDS: LEVOFLOXACIN 500 MG TAB PO (05:43)
[2018-07-05] MEDS: PANTOPRAZOLE (EC) 40 MG TAB PO ×2 (05:43→18:11)
[2018-07-05 06:53] LABS: ADD UMIC NO; UR ASCORBIC ACID NEGATIVE (NEGATIVE); UR BILIRUBIN (Dip) NEGATIVE (NEGATIVE); UR BLOOD (Dip) NEGATIVE (NEGATIVE); UR CLARITY CLEAR (CLEAR); UR COLOR STRAW (YELLOW); UR GLUCOSE (Dip) NEGATIVE (NEGATIVE); UR KETONES (Dip) NEGATIVE (NEGATIVE); UR LEUKOCYTE ESTERASE (Dip) NEGATIVE Leu/ul (NEGATIVE); UR NITRITE (Dip) NEGATIVE (NEGATIVE); UR SPECIFIC GRAVITY (Dip) 1.003 (1.003-1.030); UR TOTAL PROTEIN (Dip) NEGATIVE (NEGATIVE); UR UROBILINOGEN (Dip) NEGATIVE (NEGATIVE)
[2018-07-05 07:06] LABS: LACTIC ACID 3.2 mmol/L (0.5-2.0)
[2018-07-05] MEDS: GABAPENTIN 100 MG CAP PO ×3 (08:08→21:37)
[2018-07-05] MEDS: COLLAGENASE 5 GM (UD JAR) TOP (08:08)
[2018-07-05] MEDS: metFORMIN 500 MG TAB PO ×2 (08:09→18:11)
[2018-07-05] MEDS: AMOXICILLIN/CLAV 875 MG TAB PO ×2 (08:09→21:37)
[2018-07-05] MEDS: ENOXAPARIN 40 MG/0.4 ML SYG SC (08:13)
[2018-07-05] MEDS: INSULIN ASPART [NOVOLOG] 3 ML PEN SC ×3 (08:13→18:10)
[2018-07-05] MEDS: Insulin NOVOLOG SS MODERATE Algorithm (SS with meals and bedtime) SC ×4 (08:13→21:00)
[2018-07-05] MEDS: NYSTATIN 30 GM POWDER BTL TOP ×2 (08:14→21:38)
[2018-07-05 12:10] LABS: LACTIC ACID 3.2 mmol/L (0.5-2.0)
[2018-07-05] MEDS: HYDROCODONE/APAP (5/325) TAB PO ×2 (14:03→18:31)
[2018-07-05] MEDS: INSULIN GLARGINE [LANTus] (100 UNITS/ML) SYG SC (21:51)
[2018-07-06] MEDS: ACCU-CHEK XX (02:00)
[2018-07-06] MEDS: LEVOFLOXACIN 500 MG TAB PO (05:07)
[2018-07-06] MEDS: PANTOPRAZOLE (EC) 40 MG TAB PO ×2 (05:08→17:32)
[2018-07-06] MEDS: HYDROCODONE/APAP (5/325) TAB PO (05:08)
[2018-07-06 05:41] LABS: ADD MAN DIFF? NO
[2018-07-06 05:43] LABS: WHITE BLOOD COUNT 17.2 10^3/ul (4.8-10.8)
[2018-07-06 05:43] LABS: ABNORMAL IP MESSAGE 1; BASOPHIL # 0.1 10^3/ul (0.0-0.1); BASOPHILS % 0.3 % (0.0-2.0); EOSINOPHILS # 0.1 10^3/ul (0.0-0.5); EOSINOPHILS % 0.6 % (0.0-7.0); HEMATOCRIT 26.1 % (42.0-52.0); HEMOGLOBIN 8.2 g/dl (14.0-18.0); LYMPHOCYTES % 11.7 % (15.0-51.0); MEAN CORPUSCULAR HEMOGLOBIN 26.8 pg (29.0-33.0); MEAN CORPUSCULAR HGB CONC 31.4 g/dl (32.0-37.0); MEAN CORPUSCULAR VOLUME 85.3 fl (82.0-101.0); MEAN PLATELET VOLUME 10.5 fl (7.4-10.4); MONOCYTE # 1.8 10^3/ul (0.3-0.9); MONOCYTES % 10.5 % (0.0-11.0); NEUTROPHIL # 12.6 10^3/ul (1.6-7.5); NEUTROPHILS % 73.2 % (39.0-77.0); PLATELET COUNT 316 10^3/UL (140-415); POSITIVE DIFF @See below; RED BLOOD COUNT 3.06 10^6/ul (4.70-6.10); RED CELL DISTRIBUTION WIDTH 14.1 % (11.5-14.5)
[2018-07-06 06:19] LABS: ANION GAP 8 (5-13); BLOOD UREA NITROGEN 13 mg/dl (7-20); CALCIUM 8.2 mg/dl (8.4-10.2); CARBON DIOXIDE 29 mmol/L (21-31); CHLORIDE 95 mmol/L (97-110); Estimated GFR > 60 mL/min (>60); GLUCOSE 172 mg/dl (70-220); MAGNESIUM 1.8 mg/dl (1.7-2.5); PHOSPHORUS 3.1 mg/dl (2.5-4.9); POTASSIUM 4.2 mmol/L (3.5-5.1); SODIUM 132 mmol/L (135-144)
[2018-07-06] MEDS: metFORMIN 500 MG TAB PO ×2 (08:28→17:31)
[2018-07-06] MEDS: COLLAGENASE 5 GM (UD JAR) TOP (08:28)
[2018-07-06] MEDS: FERROUS SULFATE (EC) 325 MG TAB PO (08:28)
[2018-07-06] MEDS: ZINC SULFATE 220 MG CAP PO (08:29)
[2018-07-06] MEDS: AMOXICILLIN/CLAV 875 MG TAB PO ×2 (08:29→20:11)
[2018-07-06] MEDS: ASCORBIC ACID 500 MG TAB PO (08:29)
[2018-07-06] MEDS: GABAPENTIN 100 MG CAP PO ×3 (08:29→20:11)
[2018-07-06] MEDS: Insulin NOVOLOG SS MODERATE Algorithm (SS with meals and bedtime) SC ×4 (08:33→20:12)
[2018-07-06] MEDS: ENOXAPARIN 40 MG/0.4 ML SYG SC (08:33)
[2018-07-06] MEDS: INSULIN ASPART [NOVOLOG] 3 ML PEN SC ×3 (08:33→17:31)
[2018-07-06] MEDS: NYSTATIN 30 GM POWDER BTL TOP ×2 (09:42→20:12)
[2018-07-06] MEDS: ACETAMINOPHEN 500 MG TAB PO (17:37)
[2018-07-06] MEDS: INSULIN GLARGINE [LANTus] (100 UNITS/ML) SYG SC (20:16)
[2018-07-07] MEDS: ACCU-CHEK XX (01:15)
[2018-07-07] MEDS: LEVOFLOXACIN 500 MG TAB PO (05:41)
[2018-07-07] MEDS: PANTOPRAZOLE (EC) 40 MG TAB PO ×2 (05:41→17:58)
[2018-07-07] MEDS: AMOXICILLIN/CLAV 875 MG TAB PO ×2 (08:45→20:42)
[2018-07-07] MEDS: FERROUS SULFATE (EC) 325 MG TAB PO (08:45)
[2018-07-07] MEDS: GABAPENTIN 100 MG CAP PO ×3 (08:45→20:42)
[2018-07-07] MEDS: ASCORBIC ACID 500 MG TAB PO (08:45)
[2018-07-07] MEDS: ZINC SULFATE 220 MG CAP PO (08:45)
[2018-07-07] MEDS: metFORMIN 500 MG TAB PO ×2 (08:46→17:49)
[2018-07-07] MEDS: INSULIN ASPART [NOVOLOG] 3 ML PEN SC ×3 (08:50→17:57)
[2018-07-07] MEDS: Insulin NOVOLOG SS MODERATE Algorithm (SS with meals and bedtime) SC ×4 (08:50→20:43)
[2018-07-07] MEDS: ENOXAPARIN 40 MG/0.4 ML SYG SC (08:51)
[2018-07-07] MEDS: COLLAGENASE 5 GM (UD JAR) TOP (08:55)
[2018-07-07] MEDS: NYSTATIN 30 GM POWDER BTL TOP ×3 (08:58→22:24)
[2018-07-07] MEDS: HYDROCODONE/APAP (5/325) TAB PO ×3 (13:05→22:11)
[2018-07-07] MEDS: INSULIN GLARGINE [LANTus] (100 UNITS/ML) SYG SC (20:42)
[2018-07-08] MEDS: ACCU-CHEK XX (02:00)
[2018-07-08] MEDS: PANTOPRAZOLE (EC) 40 MG TAB PO ×2 (05:10→17:46)
[2018-07-08] MEDS: HYDROCODONE/APAP (5/325) TAB PO ×2 (05:10→13:24)
[2018-07-08] MEDS: LEVOFLOXACIN 500 MG TAB PO (05:10)
[2018-07-08 05:26] LABS: ADD MAN DIFF? NO
[2018-07-08 05:30] LABS: BASOPHIL # 0.1 10^3/ul (0.0-0.1); BASOPHILS % 0.5 % (0.0-2.0); EOSINOPHILS # 0.2 10^3/ul (0.0-0.5); EOSINOPHILS % 1.3 % (0.0-7.0); LYMPHOCYTES # 1.6 10^3/ul (0.8-2.9); MEAN CORPUSCULAR HEMOGLOBIN 26.1 pg (29.0-33.0); MEAN CORPUSCULAR HGB CONC 30.8 g/dl (32.0-37.0); MEAN PLATELET VOLUME 10.7 fl (7.4-10.4); MONOCYTE # 1.2 10^3/ul (0.3-0.9); MONOCYTES % 9.8 % (0.0-11.0); NEUTROPHIL # 8.2 10^3/ul (1.6-7.5); NEUTROPHILS % 70.5 % (39.0-77.0); PLATELET COUNT 321 10^3/UL (140-415); RED BLOOD COUNT 3.06 10^6/ul (4.70-6.10); RED CELL DISTRIBUTION WIDTH 14.1 % (11.5-14.5)
[2018-07-08 05:30] LABS: WHITE BLOOD COUNT 11.7 10^3/ul (4.8-10.8)
[2018-07-08 05:53] LABS: ANION GAP 9 (5-13); BLOOD UREA NITROGEN 11 mg/dl (7-20); CALCIUM 8.3 mg/dl (8.4-10.2); CARBON DIOXIDE 30 mmol/L (21-31); CHLORIDE 97 mmol/L (97-110); CREATININE 0.36 mg/dl (0.61-1.24); Estimated GFR > 60 mL/min (>60); GLUCOSE 140 mg/dl (70-220); MAGNESIUM 1.9 mg/dl (1.7-2.5); PHOSPHORUS 3.8 mg/dl (2.5-4.9); POTASSIUM 3.9 mmol/L (3.5-5.1); SODIUM 136 mmol/L (135-144)
[2018-07-08] MEDS: COLLAGENASE 5 GM (UD JAR) TOP (08:15)
[2018-07-08] MEDS: Insulin NOVOLOG SS MODERATE Algorithm (SS with meals and bedtime) SC ×4 (08:15→20:31)
[2018-07-08] MEDS: INSULIN ASPART [NOVOLOG] 3 ML PEN SC ×3 (08:15→17:51)
[2018-07-08] MEDS: ENOXAPARIN 40 MG/0.4 ML SYG SC (08:15)
[2018-07-08] MEDS: AMOXICILLIN/CLAV 875 MG TAB PO ×2 (08:15→20:29)
[2018-07-08] MEDS: ASCORBIC ACID 500 MG TAB PO (08:16)
[2018-07-08] MEDS: metFORMIN 500 MG TAB PO ×2 (08:16→17:46)
[2018-07-08] MEDS: NYSTATIN 30 GM POWDER BTL TOP ×2 (08:16→20:29)
[2018-07-08] MEDS: FERROUS SULFATE (EC) 325 MG TAB PO (08:16)
[2018-07-08] MEDS: GABAPENTIN 100 MG CAP PO ×3 (08:16→20:29)
[2018-07-08] MEDS: ZINC SULFATE 220 MG CAP PO (08:16)
[2018-07-08] MEDS: SOD CHLORIDE 0.9% 500 ML IV ×2 (20:29→22:50)
[2018-07-08] MEDS: INSULIN GLARGINE [LANTus] (100 UNITS/ML) SYG SC (20:33)
[2018-07-08] MEDS: ACETAMINOPHEN 500 MG TAB PO (22:50)
[2018-07-09] MEDS: ACCU-CHEK XX (01:08)
[2018-07-09] MEDS: PANTOPRAZOLE (EC) 40 MG TAB PO ×2 (05:23→17:45)
[2018-07-09] MEDS: LEVOFLOXACIN 500 MG TAB PO (05:23)
[2018-07-09] MEDS: INSULIN ASPART [NOVOLOG] 3 ML PEN SC ×3 (09:09→17:46)
[2018-07-09] MEDS: Insulin NOVOLOG SS MODERATE Algorithm (SS with meals and bedtime) SC ×4 (09:10→20:33)
[2018-07-09] MEDS: ENOXAPARIN 40 MG/0.4 ML SYG SC (09:11)
[2018-07-09] MEDS: AMOXICILLIN/CLAV 875 MG TAB PO ×2 (09:14→20:30)
[2018-07-09] MEDS: ZINC SULFATE 220 MG CAP PO (09:14)
[2018-07-09] MEDS: GABAPENTIN 100 MG CAP PO ×3 (09:14→20:30)
[2018-07-09] MEDS: FERROUS SULFATE (EC) 325 MG TAB PO (09:14)
[2018-07-09] MEDS: ASCORBIC ACID 500 MG TAB PO (09:14)
[2018-07-09] MEDS: metFORMIN 500 MG TAB PO ×2 (09:15→17:45)
[2018-07-09] MEDS: COLLAGENASE 5 GM (UD JAR) TOP (09:16)
[2018-07-09] MEDS: NYSTATIN 30 GM POWDER BTL TOP ×2 (09:16→20:31)
[2018-07-09] MEDS: HYDROCODONE/APAP (5/325) TAB PO ×2 (09:20→22:56)
[2018-07-09] MEDS: INSULIN GLARGINE [LANTus] (100 UNITS/ML) SYG SC (20:34)
[2018-07-10] MEDS: ACCU-CHEK XX (01:51)
[2018-07-10] MEDS: PANTOPRAZOLE (EC) 40 MG TAB PO ×2 (05:17→18:33)
[2018-07-10] MEDS: LEVOFLOXACIN 500 MG TAB PO (05:17)
[2018-07-10 05:22] LABS: ABNORMAL IP MESSAGE 1; HEMATOCRIT 25.3 % (42.0-52.0); HEMOGLOBIN 7.9 g/dl (14.0-18.0); MEAN CORPUSCULAR HEMOGLOBIN 26.7 pg (29.0-33.0); MEAN CORPUSCULAR HGB CONC 31.2 g/dl (32.0-37.0); MEAN CORPUSCULAR VOLUME 85.5 fl (82.0-101.0); MEAN PLATELET VOLUME 10.8 fl (7.4-10.4); PLATELET COUNT 312 10^3/UL (140-415); POSITIVE DIFF @See below; RED BLOOD COUNT 2.96 10^6/ul (4.70-6.10); RED CELL DISTRIBUTION WIDTH 14.7 % (11.5-14.5)
[2018-07-10 05:22] LABS: WHITE BLOOD COUNT 15.2 10^3/ul (4.8-10.8)
[2018-07-10 05:28] LABS: ADD MAN DIFF? YES
[2018-07-10 05:53] LABS: ANION GAP 9 (5-13); BLOOD UREA NITROGEN 9 mg/dl (7-20); CALCIUM 8.3 mg/dl (8.4-10.2); CARBON DIOXIDE 31 mmol/L (21-31); CHLORIDE 95 mmol/L (97-110); Estimated GFR > 60 mL/min (>60); GLUCOSE 151 mg/dl (70-220); MAGNESIUM 1.9 mg/dl (1.7-2.5); PHOSPHORUS 3.7 mg/dl (2.5-4.9); POTASSIUM 3.9 mmol/L (3.5-5.1); SODIUM 135 mmol/L (135-144)
[2018-07-10 07:41] LABS: ANISOCYTOSIS 1+ (0-0); BAND NEUTROPHILS #M 0.3 10^3/ul (0.0-0.6); BAND NEUTROPHILS % (M) 2 % (0-4); EOSINOPHILS % (M) 2 % (0-7); LYMPHOCYTES #M 0.7 10^3/ul (0.8-2.9); LYMPHOCYTES % (M) 5 % (15-51); MICROCYTOSIS 1+ (0-0); MONOCYTE #M 1.8 10^3/ul (0.3-0.9); MONOCYTES % (M) 12 % (0-11); PLATELET ESTIMATE NORMAL; POLYCHROMASIA 2+ (0-0); REACTIVE LYMPHOCYTES #M 0.1 10^3/ul (0.0-0.0); REACTIVE LYMPHOCYTES% (M) 1 % (0-0); SEG NEUT #M 11.9 10^3/ul (1.6-7.5); SEGMENTED NEUTROPHILS (M) % 78 % (39-77); SMUDGE%M 8 % (0-0)
[2018-07-10] MEDS: Insulin NOVOLOG SS MODERATE Algorithm (SS with meals and bedtime) SC ×4 (08:37→20:13)
[2018-07-10] MEDS: INSULIN ASPART [NOVOLOG] 3 ML PEN SC ×3 (08:38→18:48)
[2018-07-10] MEDS: FERROUS SULFATE (EC) 325 MG TAB PO (09:33)
[2018-07-10] MEDS: GABAPENTIN 100 MG CAP PO ×3 (09:33→20:12)
[2018-07-10] MEDS: metFORMIN 500 MG TAB PO ×2 (09:33→18:00)
[2018-07-10] MEDS: AMOXICILLIN/CLAV 875 MG TAB PO ×2 (09:33→20:12)
[2018-07-10] MEDS: ASCORBIC ACID 500 MG TAB PO (09:33)
[2018-07-10] MEDS: ZINC SULFATE 220 MG CAP PO (09:33)
[2018-07-10] MEDS: COLLAGENASE 5 GM (UD JAR) TOP (09:33)
[2018-07-10] MEDS: NYSTATIN 30 GM POWDER BTL TOP ×2 (09:34→22:07)
[2018-07-10] MEDS: ENOXAPARIN 40 MG/0.4 ML SYG SC (09:42)
[2018-07-10] MEDS: HYDROCODONE/APAP (5/325) TAB PO ×2 (09:45→20:16)
[2018-07-10] MEDS: INSULIN GLARGINE [LANTus] (100 UNITS/ML) SYG SC (20:16)
[2018-07-11] MEDS: ACCU-CHEK XX ×2 (02:00→22:57)
[2018-07-11] MEDS: HYDROCODONE/APAP (5/325) TAB PO ×2 (03:35→20:27)
[2018-07-11] MEDS: PANTOPRAZOLE (EC) 40 MG TAB PO ×2 (05:00→17:27)
[2018-07-11] MEDS: LEVOFLOXACIN 500 MG TAB PO (05:00)
[2018-07-11] MEDS: Insulin NOVOLOG SS MODERATE Algorithm (SS with meals and bedtime) SC ×4 (08:00→20:27)
[2018-07-11] MEDS: INSULIN ASPART [NOVOLOG] 3 ML PEN SC ×3 (08:10→17:33)
[2018-07-11] MEDS: ENOXAPARIN 40 MG/0.4 ML SYG SC (08:23)
[2018-07-11] MEDS: AMOXICILLIN/CLAV 875 MG TAB PO ×2 (08:24→20:13)
[2018-07-11] MEDS: metFORMIN 500 MG TAB PO ×2 (08:24→17:27)
[2018-07-11] MEDS: FERROUS SULFATE (EC) 325 MG TAB PO (08:24)
[2018-07-11] MEDS: GABAPENTIN 100 MG CAP PO ×3 (08:24→20:13)
[2018-07-11] MEDS: NYSTATIN 30 GM POWDER BTL TOP ×2 (08:24→20:27)
[2018-07-11] MEDS: ASCORBIC ACID 500 MG TAB PO (08:24)
[2018-07-11] MEDS: ZINC SULFATE 220 MG CAP PO (08:24)
[2018-07-11] MEDS: COLLAGENASE 5 GM (UD JAR) TOP (08:25)
[2018-07-11] MEDS: INSULIN GLARGINE [LANTus] (100 UNITS/ML) SYG SC (20:21)
[2018-07-12] MEDS: LEVOFLOXACIN 500 MG TAB PO (05:35)
[2018-07-12] MEDS: PANTOPRAZOLE (EC) 40 MG TAB PO ×2 (05:35→17:33)
[2018-07-12] MEDS: HYDROCODONE/APAP (5/325) TAB PO ×2 (05:40→17:44)
[2018-07-12 06:23] LABS: ADD MAN DIFF? NO
[2018-07-12 06:26] LABS: BASOPHILS % 0.4 % (0.0-2.0); EOSINOPHILS # 0.1 10^3/ul (0.0-0.5); EOSINOPHILS % 1.3 % (0.0-7.0); HEMATOCRIT 26.2 % (42.0-52.0); HEMOGLOBIN 8.1 g/dl (14.0-18.0); LYMPHOCYTES # 1.7 10^3/ul (0.8-2.9); LYMPHOCYTES % 18.2 % (15.0-51.0); MEAN CORPUSCULAR HEMOGLOBIN 26.3 pg (29.0-33.0); MEAN CORPUSCULAR HGB CONC 30.9 g/dl (32.0-37.0); MEAN CORPUSCULAR VOLUME 85.1 fl (82.0-101.0); MEAN PLATELET VOLUME 10.8 fl (7.4-10.4); MONOCYTE # 1.3 10^3/ul (0.3-0.9); MONOCYTES % 13.9 % (0.0-11.0); NEUTROPHIL # 5.8 10^3/ul (1.6-7.5); NEUTROPHILS % 62.4 % (39.0-77.0); PLATELET COUNT 323 10^3/UL (140-415); RED BLOOD COUNT 3.08 10^6/ul (4.70-6.10); RED CELL DISTRIBUTION WIDTH 14.8 % (11.5-14.5)
[2018-07-12 06:26] LABS: WHITE BLOOD COUNT 9.3 10^3/ul (4.8-10.8)
[2018-07-12 06:51] LABS: ANION GAP 8 (5-13); BLOOD UREA NITROGEN 9 mg/dl (7-20); CALCIUM 8.3 mg/dl (8.4-10.2); CARBON DIOXIDE 33 mmol/L (21-31); CHLORIDE 96 mmol/L (97-110); Estimated GFR > 60 mL/min (>60); GLUCOSE 136 mg/dl (70-220); MAGNESIUM 1.9 mg/dl (1.7-2.5); PHOSPHORUS 3.9 mg/dl (2.5-4.9); POTASSIUM 3.8 mmol/L (3.5-5.1); SODIUM 137 mmol/L (135-144)
[2018-07-12] MEDS: metFORMIN 500 MG TAB PO ×2 (08:18→17:33)
[2018-07-12] MEDS: ASCORBIC ACID 500 MG TAB PO (08:18)
[2018-07-12] MEDS: ZINC SULFATE 220 MG CAP PO (08:18)
[2018-07-12] MEDS: AMOXICILLIN/CLAV 875 MG TAB PO ×2 (08:18→20:50)
[2018-07-12] MEDS: GABAPENTIN 100 MG CAP PO ×3 (08:18→20:50)
[2018-07-12] MEDS: FERROUS SULFATE (EC) 325 MG TAB PO (08:18)
[2018-07-12] MEDS: INSULIN ASPART [NOVOLOG] 3 ML PEN SC ×3 (08:22→17:35)
[2018-07-12] MEDS: COLLAGENASE 5 GM (UD JAR) TOP (08:23)
[2018-07-12] MEDS: ENOXAPARIN 40 MG/0.4 ML SYG SC (08:23)
[2018-07-12] MEDS: Insulin NOVOLOG SS MODERATE Algorithm (SS with meals and bedtime) SC ×4 (08:23→20:56)
[2018-07-12] MEDS: NYSTATIN 30 GM POWDER BTL TOP ×2 (08:26→20:57)
[2018-07-12] MEDS: INSULIN GLARGINE [LANTus] (100 UNITS/ML) SYG SC (20:56)
[2018-07-13] MEDS: ACCU-CHEK XX (02:00)
[2018-07-13] MEDS: HYDROCODONE/APAP (5/325) TAB PO ×2 (05:29→22:08)
[2018-07-13] MEDS: LEVOFLOXACIN 500 MG TAB PO (05:29)
[2018-07-13] MEDS: PANTOPRAZOLE (EC) 40 MG TAB PO ×2 (05:29→17:46)
[2018-07-13] MEDS: FERROUS SULFATE (EC) 325 MG TAB PO (09:03)
[2018-07-13] MEDS: FLUCONAZOLE 200 MG TAB PO (09:03)
[2018-07-13] MEDS: ASCORBIC ACID 500 MG TAB PO (09:03)
[2018-07-13] MEDS: metFORMIN 500 MG TAB PO (09:04)
[2018-07-13] MEDS: ZINC SULFATE 220 MG CAP PO (09:04)
[2018-07-13] MEDS: AMOXICILLIN/CLAV 875 MG TAB PO ×2 (09:04→21:38)
[2018-07-13] MEDS: NYSTATIN 30 GM POWDER BTL TOP ×2 (09:04→21:38)
[2018-07-13] MEDS: COLLAGENASE 5 GM (UD JAR) TOP (09:04)
[2018-07-13] MEDS: GABAPENTIN 100 MG CAP PO ×3 (09:04→21:38)
[2018-07-13] MEDS: INSULIN ASPART [NOVOLOG] 3 ML PEN SC ×3 (09:06→17:48)
[2018-07-13] MEDS: Insulin NOVOLOG SS MODERATE Algorithm (SS with meals and bedtime) SC ×4 (09:06→21:00)
[2018-07-13] MEDS: ENOXAPARIN 40 MG/0.4 ML SYG SC (09:07)
[2018-07-13 12:49] LABS: ADD MAN DIFF? NO
[2018-07-13 12:51] LABS: WHITE BLOOD COUNT 10.6 10^3/ul (4.8-10.8)
[2018-07-13 12:51] LABS: BASOPHILS % 0.2 % (0.0-2.0); EOSINOPHILS # 0.1 10^3/ul (0.0-0.5); EOSINOPHILS % 1.3 % (0.0-7.0); HEMOGLOBIN 8.1 g/dl (14.0-18.0); LYMPHOCYTES # 1.5 10^3/ul (0.8-2.9); LYMPHOCYTES % 14.3 % (15.0-51.0); MEAN CORPUSCULAR HEMOGLOBIN 26.4 pg (29.0-33.0); MEAN CORPUSCULAR HGB CONC 31.2 g/dl (32.0-37.0); MEAN CORPUSCULAR VOLUME 84.7 fl (82.0-101.0); MEAN PLATELET VOLUME 10.3 fl (7.4-10.4); MONOCYTE # 1.4 10^3/ul (0.3-0.9); MONOCYTES % 12.9 % (0.0-11.0); NEUTROPHIL # 7.3 10^3/ul (1.6-7.5); NEUTROPHILS % 68.7 % (39.0-77.0); PLATELET COUNT 323 10^3/UL (140-415); RED BLOOD COUNT 3.07 10^6/ul (4.70-6.10); RED CELL DISTRIBUTION WIDTH 14.8 % (11.5-14.5)
[2018-07-13 13:11] LABS: ALBUMIN 2.6 g/dl (3.3-4.9)
[2018-07-13 13:13] LABS: ANION GAP 6 (5-13); BLOOD UREA NITROGEN 9 mg/dl (7-20); CALCIUM 8.3 mg/dl (8.4-10.2); CARBON DIOXIDE 29 mmol/L (21-31); CHLORIDE 95 mmol/L (97-110); CREATININE 0.35 mg/dl (0.61-1.24); Estimated GFR > 60 mL/min (>60); GLUCOSE 146 mg/dl (70-220); SODIUM 130 mmol/L (135-144)
[2018-07-13] MEDS: ACETAMINOPHEN 500 MG TAB PO (21:38)
[2018-07-13] MEDS: INSULIN GLARGINE [LANTus] (100 UNITS/ML) SYG SC (21:44)
[2018-07-14] MEDS: ACCU-CHEK XX (01:24)
[2018-07-14] MEDS: LEVOFLOXACIN 500 MG TAB PO (04:43)
[2018-07-14] MEDS: PANTOPRAZOLE (EC) 40 MG TAB PO ×2 (04:44→17:04)
[2018-07-14] MEDS: INSULIN ASPART [NOVOLOG] 3 ML PEN SC ×8 (04:55→21:00)
[2018-07-14 05:10] LABS: ADD MAN DIFF? NO
[2018-07-14 05:15] LABS: BASOPHILS % 0.3 % (0.0-2.0); EOSINOPHILS # 0.2 10^3/ul (0.0-0.5); EOSINOPHILS % 1.6 % (0.0-7.0); HEMOGLOBIN 8.5 g/dl (14.0-18.0); LYMPHOCYTES # 1.9 10^3/ul (0.8-2.9); LYMPHOCYTES % 15.6 % (15.0-51.0); MEAN CORPUSCULAR HEMOGLOBIN 25.9 pg (29.0-33.0); MEAN CORPUSCULAR HGB CONC 30.4 g/dl (32.0-37.0); MEAN CORPUSCULAR VOLUME 85.4 fl (82.0-101.0); MEAN PLATELET VOLUME 10.4 fl (7.4-10.4); MONOCYTE # 1.3 10^3/ul (0.3-0.9); MONOCYTES % 10.1 % (0.0-11.0); NEUTROPHIL # 8.6 10^3/ul (1.6-7.5); NEUTROPHILS % 69.6 % (39.0-77.0); PLATELET COUNT 362 10^3/UL (140-415); RED BLOOD COUNT 3.28 10^6/ul (4.70-6.10); RED CELL DISTRIBUTION WIDTH 14.9 % (11.5-14.5)
[2018-07-14 05:15] LABS: WHITE BLOOD COUNT 12.3 10^3/ul (4.8-10.8)
[2018-07-14 05:55] LABS: ANION GAP 7 (5-13); BLOOD UREA NITROGEN 8 mg/dl (7-20); CALCIUM 8.6 mg/dl (8.4-10.2); CARBON DIOXIDE 34 mmol/L (21-31); CHLORIDE 93 mmol/L (97-110); CREATININE 0.41 mg/dl (0.61-1.24); Estimated GFR > 60 mL/min (>60); GLUCOSE 135 mg/dl (70-220); PHOSPHORUS 4.5 mg/dl (2.5-4.9); POTASSIUM 4.2 mmol/L (3.5-5.1); SODIUM 134 mmol/L (135-144)
[2018-07-14] MEDS: AMOXICILLIN/CLAV 875 MG TAB PO ×2 (08:20→21:02)
[2018-07-14] MEDS: GABAPENTIN 100 MG CAP PO ×3 (08:21→21:02)
[2018-07-14] MEDS: FERROUS SULFATE (EC) 325 MG TAB PO (08:21)
[2018-07-14] MEDS: ASCORBIC ACID 500 MG TAB PO (08:21)
[2018-07-14] MEDS: FLUCONAZOLE 200 MG TAB PO (08:21)
[2018-07-14] MEDS: ZINC SULFATE 220 MG CAP PO (08:21)
[2018-07-14] MEDS: ENOXAPARIN 40 MG/0.4 ML SYG SC (08:25)
[2018-07-14] MEDS: NYSTATIN 30 GM POWDER BTL TOP ×2 (08:27→21:06)
[2018-07-14] MEDS: COLLAGENASE 5 GM (UD JAR) TOP (08:27)
[2018-07-14] MEDS: HYDROCODONE/APAP (5/325) TAB PO ×2 (08:31→23:23)
[2018-07-14] MEDS: INSULIN GLARGINE [LANTus] (100 UNITS/ML) SYG SC (21:05)
[2018-07-15] MEDS: ACCU-CHEK XX (02:00)
[2018-07-15] MEDS: LEVOFLOXACIN 500 MG TAB PO (05:38)
[2018-07-15] MEDS: HYDROCODONE/APAP (5/325) TAB PO ×2 (05:41→17:59)
[2018-07-15] MEDS: PANTOPRAZOLE (EC) 40 MG TAB PO ×2 (06:00→18:10)
[2018-07-15] MEDS: INSULIN ASPART [NOVOLOG] 3 ML PEN SC ×7 (08:00→21:07)
[2018-07-15] MEDS: COLLAGENASE 5 GM (UD JAR) TOP (08:40)
[2018-07-15] MEDS: NYSTATIN 30 GM POWDER BTL TOP ×2 (08:40→21:07)
[2018-07-15] MEDS: ASCORBIC ACID 500 MG TAB PO (08:42)
[2018-07-15] MEDS: ZINC SULFATE 220 MG CAP PO (08:42)
[2018-07-15] MEDS: AMOXICILLIN/CLAV 875 MG TAB PO ×2 (08:42→20:51)
[2018-07-15] MEDS: FLUCONAZOLE 200 MG TAB PO (08:42)
[2018-07-15] MEDS: GABAPENTIN 100 MG CAP PO ×3 (08:42→20:51)
[2018-07-15] MEDS: FERROUS SULFATE (EC) 325 MG TAB PO (08:42)
[2018-07-15] MEDS: ENOXAPARIN 40 MG/0.4 ML SYG SC (08:44)
[2018-07-15 16:16] LABS: ADD MAN DIFF? NO
[2018-07-15 16:19] LABS: BASOPHILS % 0.2 % (0.0-2.0); EOSINOPHILS # 0.1 10^3/ul (0.0-0.5); EOSINOPHILS % 0.8 % (0.0-7.0); HEMOGLOBIN 9.2 g/dl (14.0-18.0); LYMPHOCYTES # 1.4 10^3/ul (0.8-2.9); MEAN CORPUSCULAR HEMOGLOBIN 26.4 pg (29.0-33.0); MEAN CORPUSCULAR HGB CONC 30.7 g/dl (32.0-37.0); MEAN PLATELET VOLUME 9.9 fl (7.4-10.4); MONOCYTES % 7.4 % (0.0-11.0); NEUTROPHIL # 10.2 10^3/ul (1.6-7.5); NEUTROPHILS % 77.8 % (39.0-77.0); PLATELET COUNT 381 10^3/UL (140-415); RED BLOOD COUNT 3.49 10^6/ul (4.70-6.10); RED CELL DISTRIBUTION WIDTH 15.5 % (11.5-14.5)
[2018-07-15 16:19] LABS: WHITE BLOOD COUNT 13.1 10^3/ul (4.8-10.8)
[2018-07-15 16:48] LABS: ANION GAP 6 (5-13); BLOOD UREA NITROGEN 11 mg/dl (7-20); CALCIUM 8.8 mg/dl (8.4-10.2); CARBON DIOXIDE 34 mmol/L (21-31); CHLORIDE 91 mmol/L (97-110); CREATININE 0.52 mg/dl (0.61-1.24); Estimated GFR > 60 mL/min (>60); GLUCOSE 137 mg/dl (70-220); POTASSIUM 4.4 mmol/L (3.5-5.1); SODIUM 131 mmol/L (135-144)
[2018-07-15] MEDS: ACETAMINOPHEN 500 MG TAB PO (19:54)
[2018-07-15] MEDS: INSULIN GLARGINE [LANTus] (100 UNITS/ML) SYG SC (20:55)
[2018-07-16] MEDS: ACCU-CHEK XX (02:43)
[2018-07-16] MEDS: LEVOFLOXACIN 500 MG TAB PO (05:47)
[2018-07-16] MEDS: PANTOPRAZOLE (EC) 40 MG TAB PO ×2 (05:47→18:12)
[2018-07-16 07:58] LABS: ADD MAN DIFF? NO
[2018-07-16 08:02] LABS: WHITE BLOOD COUNT 14.6 10^3/ul (4.8-10.8)
[2018-07-16 08:02] LABS: BASOPHILS % 0.3 % (0.0-2.0); EOSINOPHILS % 0.3 % (0.0-7.0); HEMATOCRIT 26.6 % (42.0-52.0); HEMOGLOBIN 8.1 g/dl (14.0-18.0); LYMPHOCYTES # 1.3 10^3/ul (0.8-2.9); LYMPHOCYTES % 8.9 % (15.0-51.0); MEAN CORPUSCULAR HEMOGLOBIN 25.6 pg (29.0-33.0); MEAN CORPUSCULAR HGB CONC 30.5 g/dl (32.0-37.0); MEAN CORPUSCULAR VOLUME 84.2 fl (82.0-101.0); MEAN PLATELET VOLUME 10.3 fl (7.4-10.4); MONOCYTE # 1.1 10^3/ul (0.3-0.9); MONOCYTES % 7.4 % (0.0-11.0); NEUTROPHIL # 11.7 10^3/ul (1.6-7.5); NEUTROPHILS % 80.7 % (39.0-77.0); PLATELET COUNT 367 10^3/UL (140-415); RED BLOOD COUNT 3.16 10^6/ul (4.70-6.10); RED CELL DISTRIBUTION WIDTH 15.4 % (11.5-14.5)
[2018-07-16 08:21] LABS: ANION GAP 8 (5-13); BLOOD UREA NITROGEN 10 mg/dl (7-20); CALCIUM 8.4 mg/dl (8.4-10.2); CARBON DIOXIDE 30 mmol/L (21-31); CHLORIDE 90 mmol/L (97-110); CREATININE 0.37 mg/dl (0.61-1.24); Estimated GFR > 60 mL/min (>60); GLUCOSE 199 mg/dl (70-220); POTASSIUM 4.3 mmol/L (3.5-5.1); SODIUM 128 mmol/L (135-144)
[2018-07-16 08:23] LABS: INR 1.25; PROTIME 15.8 Sec (11.9-14.9); PT RATIO 1.2
[2018-07-16 08:24] LABS: PARTIAL THROMBOPLASTIN TIME 40.9 Sec (23.0-35.0)
[2018-07-16 08:25] LABS: MAGNESIUM 1.9 mg/dl (1.7-2.5)
[2018-07-16 08:25] LABS: PHOSPHORUS 3.8 mg/dl (2.5-4.9)
[2018-07-16] MEDS: NYSTATIN 30 GM POWDER BTL TOP ×2 (09:16→21:06)
[2018-07-16] MEDS: COLLAGENASE 5 GM (UD JAR) TOP (09:16)
[2018-07-16] MEDS: FERROUS SULFATE (EC) 325 MG TAB PO (09:17)
[2018-07-16] MEDS: ASCORBIC ACID 500 MG TAB PO (09:17)
[2018-07-16] MEDS: GABAPENTIN 100 MG CAP PO ×3 (09:17→21:01)
[2018-07-16] MEDS: AMOXICILLIN/CLAV 875 MG TAB PO ×2 (09:17→21:01)
[2018-07-16] MEDS: FLUCONAZOLE 200 MG TAB PO (09:17)
[2018-07-16] MEDS: ZINC SULFATE 220 MG CAP PO (09:17)
[2018-07-16] MEDS: INSULIN ASPART [NOVOLOG] 3 ML PEN SC ×7 (09:25→21:04)
[2018-07-16] MEDS: ENOXAPARIN 40 MG/0.4 ML SYG SC (09:26)
[2018-07-16] MEDS: HYDROCODONE/APAP (5/325) TAB PO (09:27)
[2018-07-16 16:55] LABS: LACTIC ACID 2.9 mmol/L (0.5-2.0)
[2018-07-16] MEDS: metFORMIN 500 MG TAB PO (18:12)
[2018-07-16] MEDS: SOD CHLORIDE 0.9% 1,000 ML IV (18:13)
[2018-07-16] MEDS: INSULIN GLARGINE [LANTus] (100 UNITS/ML) SYG SC (21:06)
[2018-07-17] MEDS: ACCU-CHEK XX (02:50)
[2018-07-17] MEDS: LEVOFLOXACIN 500 MG TAB PO (05:56)
[2018-07-17] MEDS: PANTOPRAZOLE (EC) 40 MG TAB PO ×2 (05:56→17:25)
[2018-07-17 06:03] LABS: ADD MAN DIFF? NO
[2018-07-17 06:09] LABS: WHITE BLOOD COUNT 10.6 10^3/ul (4.8-10.8)
[2018-07-17 06:09] LABS: BASOPHILS % 0.3 % (0.0-2.0); EOSINOPHILS # 0.1 10^3/ul (0.0-0.5); EOSINOPHILS % 0.8 % (0.0-7.0); HEMATOCRIT 24.2 % (42.0-52.0); HEMOGLOBIN 7.5 g/dl (14.0-18.0); LYMPHOCYTES % 18.6 % (15.0-51.0); MEAN CORPUSCULAR HEMOGLOBIN 26.1 pg (29.0-33.0); MEAN CORPUSCULAR VOLUME 84.3 fl (82.0-101.0); MEAN PLATELET VOLUME 10.2 fl (7.4-10.4); MONOCYTE # 1.3 10^3/ul (0.3-0.9); MONOCYTES % 11.9 % (0.0-11.0); NEUTROPHIL # 6.9 10^3/ul (1.6-7.5); NEUTROPHILS % 65.2 % (39.0-77.0); PLATELET COUNT 333 10^3/UL (140-415); RED BLOOD COUNT 2.87 10^6/ul (4.70-6.10); RED CELL DISTRIBUTION WIDTH 15.5 % (11.5-14.5)
[2018-07-17 06:40] LABS: LACTIC ACID 1.2 mmol/L (0.5-2.0)
[2018-07-17 06:50] LABS: MAGNESIUM 1.9 mg/dl (1.7-2.5)
[2018-07-17 06:50] LABS: PHOSPHORUS 3.5 mg/dl (2.5-4.9)
[2018-07-17 07:01] LABS: ANION GAP 7 (5-13); BLOOD UREA NITROGEN 10 mg/dl (7-20); CALCIUM 8.1 mg/dl (8.4-10.2); CARBON DIOXIDE 29 mmol/L (21-31); CHLORIDE 92 mmol/L (97-110); Estimated GFR > 60 mL/min (>60); GLUCOSE 142 mg/dl (70-220); POTASSIUM 4.1 mmol/L (3.5-5.1); SODIUM 128 mmol/L (135-144)
[2018-07-17] MEDS: SOD CHLORIDE 0.9% 1,000 ML IV ×2 (07:52→20:10)
[2018-07-17] MEDS: AMOXICILLIN/CLAV 875 MG TAB PO ×2 (08:05→20:40)
[2018-07-17] MEDS: metFORMIN 500 MG TAB PO ×2 (08:05→17:25)
[2018-07-17] MEDS: ZINC SULFATE 220 MG CAP PO (08:05)
[2018-07-17] MEDS: ASCORBIC ACID 500 MG TAB PO (08:05)
[2018-07-17] MEDS: NYSTATIN 30 GM POWDER BTL TOP ×2 (08:06→20:41)
[2018-07-17] MEDS: GABAPENTIN 100 MG CAP PO ×3 (08:06→20:41)
[2018-07-17] MEDS: FERROUS SULFATE (EC) 325 MG TAB PO (08:06)
[2018-07-17] MEDS: FLUCONAZOLE 200 MG TAB PO (08:06)
[2018-07-17] MEDS: INSULIN ASPART [NOVOLOG] 3 ML PEN SC ×7 (08:16→20:41)
[2018-07-17] MEDS: ENOXAPARIN 40 MG/0.4 ML SYG SC (08:17)
[2018-07-17] MEDS: HYDROCODONE/APAP (5/325) TAB PO (08:26)
[2018-07-17 09:23] LABS: HEMATOCRIT 25.1 % (42.0-52.0); HEMOGLOBIN 7.7 g/dl (14.0-18.0)
[2018-07-17] MEDS ORDERED: SOD CHLORIDE 0.9% 250 ML IV* (12:59)
[2018-07-17 15:22] LABS: IMMEDIATE SPIN CROSSMATCH 1 4
[2018-07-17] MEDS: SOD CHLORIDE 0.9% 500 ML IV (16:06)
[2018-07-17] MEDS: INSULIN GLARGINE [LANTus] (100 UNITS/ML) SYG SC (20:45)
[2018-07-18] MEDS: ACCU-CHEK XX (01:30)
[2018-07-18 05:41] LABS: ADD MAN DIFF? NO
[2018-07-18 05:59] LABS: BASOPHILS % 0.3 % (0.0-2.0); EOSINOPHILS # 0.1 10^3/ul (0.0-0.5); EOSINOPHILS % 0.9 % (0.0-7.0); HEMATOCRIT 30.4 % (42.0-52.0); HEMOGLOBIN 9.6 g/dl (14.0-18.0); LYMPHOCYTES # 1.8 10^3/ul (0.8-2.9); LYMPHOCYTES % 16.7 % (15.0-51.0); MEAN CORPUSCULAR HEMOGLOBIN 26.7 pg (29.0-33.0); MEAN CORPUSCULAR HGB CONC 31.6 g/dl (32.0-37.0); MEAN CORPUSCULAR VOLUME 84.7 fl (82.0-101.0); MEAN PLATELET VOLUME 10.6 fl (7.4-10.4); MONOCYTE # 1.2 10^3/ul (0.3-0.9); MONOCYTES % 11.2 % (0.0-11.0); NEUTROPHIL # 7.3 10^3/ul (1.6-7.5); NEUTROPHILS % 67.8 % (39.0-77.0); PLATELET COUNT 334 10^3/UL (140-415); RED BLOOD COUNT 3.59 10^6/ul (4.70-6.10)
[2018-07-18 05:59] LABS: WHITE BLOOD COUNT 10.8 10^3/ul (4.8-10.8)
[2018-07-18] MEDS: LEVOFLOXACIN 500 MG TAB PO (06:03)
[2018-07-18] MEDS: PANTOPRAZOLE (EC) 40 MG TAB PO ×2 (06:03→17:41)
[2018-07-18] MEDS: SOD CHLORIDE 0.9% 1,000 ML IV ×3 (06:06→21:49)
[2018-07-18 06:14] LABS: ANION GAP 8 (5-13); BLOOD UREA NITROGEN 8 mg/dl (7-20); CALCIUM 8.4 mg/dl (8.4-10.2); CARBON DIOXIDE 27 mmol/L (21-31); CHLORIDE 97 mmol/L (97-110); Estimated GFR > 60 mL/min (>60); GLUCOSE 155 mg/dl (70-220); POTASSIUM 3.5 mmol/L (3.5-5.1); SODIUM 132 mmol/L (135-144)
[2018-07-18] MEDS: FERROUS SULFATE (EC) 325 MG TAB PO (08:46)
[2018-07-18] MEDS: ZINC SULFATE 220 MG CAP PO (08:46)
[2018-07-18] MEDS: FLUCONAZOLE 200 MG TAB PO (08:46)
[2018-07-18] MEDS: metFORMIN 500 MG TAB PO (08:47)
[2018-07-18] MEDS: GABAPENTIN 100 MG CAP PO ×3 (08:47→21:39)
[2018-07-18] MEDS: ASCORBIC ACID 500 MG TAB PO (08:47)
[2018-07-18] MEDS: AMOXICILLIN/CLAV 875 MG TAB PO ×2 (08:47→21:39)
[2018-07-18] MEDS: NYSTATIN 30 GM POWDER BTL TOP ×2 (08:48→21:00)
[2018-07-18] MEDS: ENOXAPARIN 40 MG/0.4 ML SYG SC (08:51)
[2018-07-18] MEDS: INSULIN ASPART [NOVOLOG] 3 ML PEN SC ×7 (08:52→21:00)
[2018-07-18] MEDS: HYDROCODONE/APAP (5/325) TAB PO ×2 (09:01→21:49)
[2018-07-18] MEDS: COLLAGENASE 5 GM (UD JAR) TOP (17:41)
[2018-07-18] MEDS: INSULIN GLARGINE [LANTus] (100 UNITS/ML) SYG SC ×2 (20:00→23:45)
[2018-07-19] MEDS: INSULIN ASPART [NOVOLOG] 3 ML PEN SC ×10 (01:00→21:00)
[2018-07-19] MEDS: ACCU-CHEK XX (02:00)
[2018-07-19] MEDS: LEVOFLOXACIN 500 MG TAB PO (06:00)
[2018-07-19] MEDS: PANTOPRAZOLE (EC) 40 MG TAB PO ×2 (06:00→17:14)
[2018-07-19 06:15] LABS: ADD MAN DIFF? NO
[2018-07-19 06:35] LABS: BASOPHILS % 0.2 % (0.0-2.0); EOSINOPHILS # 0.2 10^3/ul (0.0-0.5); EOSINOPHILS % 1.1 % (0.0-7.0); HEMATOCRIT 31.7 % (42.0-52.0); HEMOGLOBIN 9.8 g/dl (14.0-18.0); LYMPHOCYTES # 1.6 10^3/ul (0.8-2.9); LYMPHOCYTES % 11.6 % (15.0-51.0); MEAN CORPUSCULAR HEMOGLOBIN 26.8 pg (29.0-33.0); MEAN CORPUSCULAR HGB CONC 30.9 g/dl (32.0-37.0); MEAN CORPUSCULAR VOLUME 86.6 fl (82.0-101.0); MEAN PLATELET VOLUME 10.4 fl (7.4-10.4); MONOCYTE # 1.3 10^3/ul (0.3-0.9); MONOCYTES % 9.3 % (0.0-11.0); NEUTROPHIL # 10.5 10^3/ul (1.6-7.5); NEUTROPHILS % 75.6 % (39.0-77.0); PLATELET COUNT 349 10^3/UL (140-415); RED BLOOD COUNT 3.66 10^6/ul (4.70-6.10); RED CELL DISTRIBUTION WIDTH 15.1 % (11.5-14.5)
[2018-07-19 06:35] LABS: WHITE BLOOD COUNT 13.9 10^3/ul (4.8-10.8)
[2018-07-19] MEDS ORDERED: SEVOFLURANE 15 MIN (07:00)
[2018-07-19] MEDS ORDERED: EPHEDrine SULFATE 50 MG/5 ML SYG (07:00)
[2018-07-19] MEDS: ASCORBIC ACID 500 MG TAB PO (08:15)
[2018-07-19] MEDS: GABAPENTIN 100 MG CAP PO (08:15)
[2018-07-19] MEDS: ZINC SULFATE 220 MG CAP PO (08:15)
[2018-07-19] MEDS: FLUCONAZOLE 200 MG TAB PO (08:15)
[2018-07-19] MEDS: FERROUS SULFATE (EC) 325 MG TAB PO (08:15)
[2018-07-19] MEDS: AMOXICILLIN/CLAV 875 MG TAB PO ×2 (08:15→20:48)
[2018-07-19] MEDS: ENOXAPARIN 40 MG/0.4 ML SYG SC (08:16)
[2018-07-19] MEDS: COLLAGENASE 5 GM (UD JAR) TOP ×2 (08:16→22:04)
[2018-07-19] MEDS: NYSTATIN 30 GM POWDER BTL TOP ×2 (08:18→22:03)
[2018-07-19] MEDS: SOD CHLORIDE 0.9% 1,000 ML IV ×2 (12:05→20:31)
[2018-07-19] MEDS ORDERED: LIDOCAINE 1% (MPF) 30 ML INJ (16:58)
[2018-07-19] MEDS ORDERED: MINERAL OIL LIGHT 10 ML VIAL (16:59)
[2018-07-19] MEDS ORDERED: FENTAnyl 50 MCG/ML VIAL IV (17:00)
[2018-07-19] MEDS ORDERED: EPHEDrine SULFATE 50 MG/5 ML SYG IV (17:00)
[2018-07-19] MEDS ORDERED: DIPHENHYDRAMINE 50 MG INJ IV (17:00)
[2018-07-19] MEDS ORDERED: HYDROmorphONE 1 MG/5 ML IV SYRINGE IV ×2 (17:00)
[2018-07-19] MEDS ORDERED: hydrALAzine 20 MG INJ IV (17:00)
[2018-07-19] MEDS ORDERED: METOCLOPRAMIDE 10 MG INJ IV (17:00)
[2018-07-19] MEDS ORDERED: LABETALOL HCL 20MG INJ IV (17:00)
[2018-07-19] MEDS ORDERED: MIDAZOLAM 1 MG/ML 2 ML INJ (17:06)
[2018-07-19] MEDS ORDERED: FENTAnyl 50 MCG/ML VIAL ×2 (17:06→17:18)
[2018-07-19] MEDS ORDERED: PROPOFOL 20 ML (17:06)
[2018-07-19] MEDS ORDERED: DEXAMETHASONE 4 MG/ML 5 ML INJ (17:36)
[2018-07-19] MEDS ORDERED: ONDANSETRON 4 MG INJ (17:36)
[2018-07-19] MEDS ORDERED: METOCLOPRAMIDE 10 MG INJ (17:36)
[2018-07-19] MEDS: POLYMYXIN/BACITRACIN 1L IRRIG ×3 (17:41→17:42)
[2018-07-19] MEDS ORDERED: HETASTARCH 6% NACL 500 ML (18:22)
[2018-07-19] MEDS ORDERED: PHENYLephrine (100 MCG/ML) 5ML SYG (18:26)
[2018-07-19] MEDS ORDERED: BACITRACIN/POLYMYXIN 28.35 GM OINT TOP (18:31)
[2018-07-19] MEDS: ONDANSETRON 4 MG INJ IV (18:59)
[2018-07-19] MEDS: MEPERIDINE 25 MG INJ IV (18:59)
[2018-07-19 19:11] LABS: HEMATOCRIT 29.6 % (42.0-52.0); HEMOGLOBIN 9.1 g/dl (14.0-18.0)
[2018-07-19] MEDS: FENTAnyl 50 MCG/ML VIAL IV ×2 (19:29→19:45)
[2018-07-19] MEDS: INSULIN GLARGINE [LANTus] (100 UNITS/ML) SYG SC (20:50)
[2018-07-19] MEDS: SOD CHLORIDE 0.9% 500 ML IV (22:56)
[2018-07-20] MEDS: HYDROCODONE/APAP (5/325) TAB PO ×3 (00:36→17:51)
[2018-07-20] MEDS: SOD CHLORIDE 0.9% 1,000 ML IV ×3 (01:30→21:36)
[2018-07-20] MEDS: LEVOFLOXACIN 500 MG TAB PO (05:28)
[2018-07-20] MEDS: PANTOPRAZOLE (EC) 40 MG TAB PO ×2 (05:28→17:44)
[2018-07-20 06:21] LABS: LACTIC ACID 2.1 mmol/L (0.5-2.0)
[2018-07-20] MEDS: SOD CHLORIDE 0.9% 500 ML IV (06:48)
[2018-07-20] MEDS: INSULIN ASPART [NOVOLOG] 3 ML PEN SC ×7 (08:11→21:00)
[2018-07-20] MEDS: FERROUS SULFATE (EC) 325 MG TAB PO (09:20)
[2018-07-20] MEDS: AMOXICILLIN/CLAV 875 MG TAB PO ×2 (09:20→21:06)
[2018-07-20] MEDS: ZINC SULFATE 220 MG CAP PO (09:20)
[2018-07-20] MEDS: ASCORBIC ACID 500 MG TAB PO (09:20)
[2018-07-20] MEDS: ENOXAPARIN 40 MG/0.4 ML SYG SC (09:26)
[2018-07-20] MEDS: FLUCONAZOLE 200 MG TAB PO (09:45)
[2018-07-20] MEDS: COLLAGENASE 5 GM (UD JAR) TOP (09:46)
[2018-07-20] MEDS: NYSTATIN 30 GM POWDER BTL TOP ×2 (10:00→21:09)
[2018-07-20 13:04] LABS: LACTIC ACID 2.4 mmol/L (0.5-2.0)
[2018-07-20] MEDS: INSULIN GLARGINE [LANTus] (100 UNITS/ML) SYG SC (21:39)
[2018-07-21] MEDS: HYDROCODONE/APAP (5/325) TAB PO ×4 (03:11→22:07)
[2018-07-21] MEDS: LEVOFLOXACIN 500 MG TAB PO (05:56)
[2018-07-21] MEDS: PANTOPRAZOLE (EC) 40 MG TAB PO ×2 (05:57→18:01)
[2018-07-21 06:00] LABS: ADD MAN DIFF? NO
[2018-07-21 06:02] LABS: BASOPHILS % 0.3 % (0.0-2.0); EOSINOPHILS # 0.1 10^3/ul (0.0-0.5); HEMATOCRIT 28.5 % (42.0-52.0); HEMOGLOBIN 8.4 g/dl (14.0-18.0); LYMPHOCYTES # 1.6 10^3/ul (0.8-2.9); MEAN CORPUSCULAR HEMOGLOBIN 25.9 pg (29.0-33.0); MEAN CORPUSCULAR HGB CONC 29.5 g/dl (32.0-37.0); MEAN PLATELET VOLUME 10.9 fl (7.4-10.4); MONOCYTE # 0.9 10^3/ul (0.3-0.9); MONOCYTES % 10.2 % (0.0-11.0); NEUTROPHIL # 6.1 10^3/ul (1.6-7.5); NEUTROPHILS % 68.3 % (39.0-77.0); PLATELET COUNT 319 10^3/UL (140-415); RED BLOOD COUNT 3.24 10^6/ul (4.70-6.10); RED CELL DISTRIBUTION WIDTH 15.3 % (11.5-14.5)
[2018-07-21 06:52] LABS: ANION GAP 8 (5-13); BLOOD UREA NITROGEN 7 mg/dl (7-20); CALCIUM 8.1 mg/dl (8.4-10.2); CARBON DIOXIDE 25 mmol/L (21-31); CHLORIDE 104 mmol/L (97-110); CREATININE 0.39 mg/dl (0.61-1.24); Estimated GFR > 60 mL/min (>60); GLUCOSE 169 mg/dl (70-220); PHOSPHORUS 3.2 mg/dl (2.5-4.9); POTASSIUM 3.7 mmol/L (3.5-5.1); SODIUM 137 mmol/L (135-144)
[2018-07-21] MEDS: INSULIN ASPART [NOVOLOG] 3 ML PEN SC ×7 (07:00→22:01)
[2018-07-21] MEDS: AMOXICILLIN/CLAV 875 MG TAB PO ×2 (09:24→21:55)
[2018-07-21] MEDS: FLUCONAZOLE 200 MG TAB PO (09:24)
[2018-07-21] MEDS: FERROUS SULFATE (EC) 325 MG TAB PO (09:24)
[2018-07-21] MEDS: ASCORBIC ACID 500 MG TAB PO (09:25)
[2018-07-21] MEDS: ZINC SULFATE 220 MG CAP PO (09:25)
[2018-07-21] MEDS: ENOXAPARIN 40 MG/0.4 ML SYG SC (09:32)
[2018-07-21] MEDS: COLLAGENASE 5 GM (UD JAR) TOP (09:32)
[2018-07-21] MEDS: NYSTATIN 30 GM POWDER BTL TOP ×2 (09:32→22:03)
[2018-07-21] MEDS: INSULIN GLARGINE [LANTus] (100 UNITS/ML) SYG SC (21:59)
[2018-07-22] MEDS: HYDROCODONE/APAP (5/325) TAB PO ×3 (02:42→21:00)
[2018-07-22] MEDS: LEVOFLOXACIN 500 MG TAB PO (06:15)
[2018-07-22] MEDS: PANTOPRAZOLE (EC) 40 MG TAB PO ×2 (06:15→17:51)
[2018-07-22] MEDS: INSULIN ASPART [NOVOLOG] 3 ML PEN SC ×7 (07:00→21:00)
[2018-07-22] MEDS: COLLAGENASE 5 GM (UD JAR) TOP (08:05)
[2018-07-22] MEDS: ASCORBIC ACID 500 MG TAB PO (08:05)
[2018-07-22] MEDS: AMOXICILLIN/CLAV 875 MG TAB PO ×2 (08:05→20:57)
[2018-07-22] MEDS: ZINC SULFATE 220 MG CAP PO (08:05)
[2018-07-22] MEDS: FLUCONAZOLE 200 MG TAB PO (08:06)
[2018-07-22] MEDS: FERROUS SULFATE (EC) 325 MG TAB PO (08:06)
[2018-07-22] MEDS: ENOXAPARIN 40 MG/0.4 ML SYG SC (08:09)
[2018-07-22] MEDS: NYSTATIN 30 GM POWDER BTL TOP ×2 (08:10→21:00)
[2018-07-22] MEDS: GABAPENTIN 100 MG CAP PO ×2 (13:02→20:57)
[2018-07-22] MEDS: NEOMYC/POLYMYX/BACIT 30 GM OINT TOP (13:03)
[2018-07-22] MEDS: INSULIN GLARGINE [LANTus] (100 UNITS/ML) SYG SC (20:56)
[2018-07-23] MEDS: PANTOPRAZOLE (EC) 40 MG TAB PO (05:25)
[2018-07-23] MEDS: LEVOFLOXACIN 500 MG TAB PO (05:25)
[2018-07-23] MEDS: INSULIN ASPART [NOVOLOG] 3 ML PEN SC ×7 (07:00→21:00)
[2018-07-23] MEDS: GABAPENTIN 100 MG CAP PO ×3 (08:22→20:57)
[2018-07-23] MEDS: COLLAGENASE 5 GM (UD JAR) TOP (08:22)
[2018-07-23] MEDS: ZINC SULFATE 220 MG CAP PO (08:22)
[2018-07-23] MEDS: ASCORBIC ACID 500 MG TAB PO (08:22)
[2018-07-23] MEDS: AMOXICILLIN/CLAV 875 MG TAB PO (08:23)
[2018-07-23] MEDS: FERROUS SULFATE (EC) 325 MG TAB PO (08:23)
[2018-07-23] MEDS: NYSTATIN 30 GM POWDER BTL TOP (08:27)
[2018-07-23] MEDS: ENOXAPARIN 40 MG/0.4 ML SYG SC (08:27)
[2018-07-23] MEDS: FLUCONAZOLE 200 MG TAB PO (08:27)
[2018-07-23] MEDS: ACETAMINOPHEN 500 MG TAB PO (12:49)
[2018-07-23] MEDS: INSULIN GLARGINE [LANTus] (100 UNITS/ML) SYG SC (20:59)
[2018-07-24] MEDS: PANTOPRAZOLE (EC) 40 MG TAB PO (05:42)
[2018-07-24] MEDS: INSULIN ASPART [NOVOLOG] 3 ML PEN SC ×7 (08:44→21:13)
[2018-07-24] MEDS: COLLAGENASE 5 GM (UD JAR) TOP (08:45)
[2018-07-24] MEDS: GABAPENTIN 100 MG CAP PO ×3 (08:45→21:13)
[2018-07-24] MEDS: FERROUS SULFATE (EC) 325 MG TAB PO (08:45)
[2018-07-24] MEDS: ZINC SULFATE 220 MG CAP PO (08:45)
[2018-07-24] MEDS: ASCORBIC ACID 500 MG TAB PO (08:45)
[2018-07-24] MEDS: ENOXAPARIN 40 MG/0.4 ML SYG SC (08:50)
[2018-07-24] MEDS: FLUCONAZOLE 200 MG TAB PO (08:51)
[2018-07-24] MEDS: HYDROCODONE/APAP (5/325) TAB PO ×3 (09:04→21:14)
[2018-07-24] MEDS: INSULIN GLARGINE [LANTus] (100 UNITS/ML) SYG SC (21:18)
[2018-07-25] MEDS: HYDROCODONE/APAP (5/325) TAB PO ×3 (06:45→21:37)
[2018-07-25] MEDS: PANTOPRAZOLE (EC) 40 MG TAB PO (06:45)
[2018-07-25] MEDS: INSULIN ASPART [NOVOLOG] 3 ML PEN SC ×7 (07:00→21:00)
[2018-07-25] MEDS: GABAPENTIN 100 MG CAP PO ×3 (08:15→21:37)
[2018-07-25] MEDS: ZINC SULFATE 220 MG CAP PO (08:15)
[2018-07-25] MEDS: ASCORBIC ACID 500 MG TAB PO (08:15)
[2018-07-25] MEDS: FERROUS SULFATE (EC) 325 MG TAB PO (08:15)
[2018-07-25] MEDS: FLUCONAZOLE 200 MG TAB PO (08:15)
[2018-07-25] MEDS: ENOXAPARIN 40 MG/0.4 ML SYG SC (08:34)
[2018-07-25] MEDS: COLLAGENASE 5 GM (UD JAR) TOP (09:00)
[2018-07-25] MEDS: INSULIN GLARGINE [LANTus] (100 UNITS/ML) SYG SC (21:43)
[2018-07-26] MEDS: HYDROCODONE/APAP (5/325) TAB PO ×3 (05:34→17:35)
[2018-07-26] MEDS: PANTOPRAZOLE (EC) 40 MG TAB PO (05:34)
[2018-07-26] MEDS: FLUCONAZOLE 200 MG TAB PO (08:26)
[2018-07-26] MEDS: GABAPENTIN 100 MG CAP PO ×3 (08:26→21:20)
[2018-07-26] MEDS: ZINC SULFATE 220 MG CAP PO (08:26)
[2018-07-26] MEDS: FERROUS SULFATE (EC) 325 MG TAB PO (08:26)
[2018-07-26] MEDS: ASCORBIC ACID 500 MG TAB PO (08:26)
[2018-07-26] MEDS: ENOXAPARIN 40 MG/0.4 ML SYG SC (08:31)
[2018-07-26] MEDS: INSULIN ASPART [NOVOLOG] 3 ML PEN SC ×7 (08:31→21:00)
[2018-07-26] MEDS: COLLAGENASE 5 GM (UD JAR) TOP (09:00)
[2018-07-26] MEDS: INSULIN GLARGINE [LANTus] (100 UNITS/ML) SYG SC (20:13)
[2018-07-27] MEDS: HYDROCODONE/APAP (5/325) TAB PO ×4 (01:59→19:59)
[2018-07-27] MEDS: PANTOPRAZOLE (EC) 40 MG TAB PO (06:40)
[2018-07-27] MEDS: INSULIN ASPART [NOVOLOG] 3 ML PEN SC ×8 (06:43→20:03)
[2018-07-27] MEDS: FERROUS SULFATE (EC) 325 MG TAB PO (08:26)
[2018-07-27] MEDS: FLUCONAZOLE 200 MG TAB PO (08:26)
[2018-07-27] MEDS: GABAPENTIN 100 MG CAP PO ×3 (08:26→20:07)
[2018-07-27] MEDS: ASCORBIC ACID 500 MG TAB PO (08:26)
[2018-07-27] MEDS: ZINC SULFATE 220 MG CAP PO (08:26)
[2018-07-27] MEDS: COLLAGENASE 5 GM (UD JAR) TOP (08:26)
[2018-07-27] MEDS: ENOXAPARIN 40 MG/0.4 ML SYG SC (08:32)
[2018-07-27] MEDS: INSULIN GLARGINE [LANTus] (100 UNITS/ML) SYG SC (20:02)
[2018-07-27] MEDS: BALSAM PERU/CASTOR OIL 60 GM TUBE TOP (20:04)
[2018-07-28] MEDS: PANTOPRAZOLE (EC) 40 MG TAB PO (06:09)
[2018-07-28] MEDS: HYDROCODONE/APAP (5/325) TAB PO ×3 (06:12→20:00)
[2018-07-28] MEDS: INSULIN ASPART [NOVOLOG] 3 ML PEN SC ×7 (07:00→20:08)
[2018-07-28] MEDS: ENOXAPARIN 40 MG/0.4 ML SYG SC (08:59)
[2018-07-28] MEDS: COLLAGENASE 5 GM (UD JAR) TOP (09:00)
[2018-07-28] MEDS: FLUCONAZOLE 200 MG TAB PO (09:05)
[2018-07-28] MEDS: FERROUS SULFATE (EC) 325 MG TAB PO (09:05)
[2018-07-28] MEDS: ASCORBIC ACID 500 MG TAB PO (09:05)
[2018-07-28] MEDS: GABAPENTIN 100 MG CAP PO ×3 (09:05→20:00)
[2018-07-28] MEDS: BALSAM PERU/CASTOR OIL 60 GM TUBE TOP ×2 (09:06→20:08)
[2018-07-28] MEDS: ZINC SULFATE 220 MG CAP PO (09:06)
[2018-07-28] MEDS: INSULIN GLARGINE [LANTus] (100 UNITS/ML) SYG SC (20:07)
[2018-07-29] MEDS: PANTOPRAZOLE (EC) 40 MG TAB PO (06:00)
[2018-07-29] MEDS ORDERED: SEVOFLURANE 15 MIN (07:00)
[2018-07-29] MEDS: INSULIN ASPART [NOVOLOG] 3 ML PEN SC ×7 (08:00→21:00)
[2018-07-29] MEDS: ZINC SULFATE 220 MG CAP PO (08:49)
[2018-07-29] MEDS: FLUCONAZOLE 200 MG TAB PO (08:49)
[2018-07-29] MEDS: FERROUS SULFATE (EC) 325 MG TAB PO (08:49)
[2018-07-29] MEDS: GABAPENTIN 100 MG CAP PO ×3 (08:49→21:00)
[2018-07-29] MEDS: ASCORBIC ACID 500 MG TAB PO (08:49)
[2018-07-29] MEDS: ENOXAPARIN 40 MG/0.4 ML SYG SC (08:49)
[2018-07-29] MEDS: BALSAM PERU/CASTOR OIL 60 GM TUBE TOP ×2 (09:00→21:00)
[2018-07-29] MEDS ORDERED: POLYMYXIN B 500000 UNIT INJ (18:37)
[2018-07-29] MEDS ORDERED: MIDAZOLAM 1 MG/ML 2 ML INJ (19:00)
[2018-07-29] MEDS ORDERED: FENTAnyl 50 MCG/ML VIAL (19:00)
[2018-07-29] MEDS ORDERED: GENTAMICIN 80 MG INJ (19:27)
[2018-07-29] MEDS ORDERED: PHENYLephrine 10 MG INJ (19:49)
[2018-07-29] MEDS: BACITRACIN 50000 UNITS INJ (19:53)
[2018-07-29] MEDS: POLYMYXIN B 500000 UNIT INJ (19:54)
[2018-07-29] MEDS: INSULIN GLARGINE [LANTus] (100 UNITS/ML) SYG SC (20:00)
[2018-07-29] MEDS: VANCOMYCIN 1 GM INJ (20:32)
[2018-07-29] MEDS ORDERED: LIDOCAINE 2% (SDV) 5 ML INJ (20:51)
[2018-07-29] MEDS ORDERED: CEFAZOLIN 1 GM INJ (20:51)
[2018-07-29] MEDS ORDERED: ETOMIDATE 20 MG INJ (20:51)
[2018-07-29] MEDS ORDERED: MEPERIDINE 25 MG INJ IV (21:30)
[2018-07-29] MEDS ORDERED: ONDANSETRON 4 MG INJ IV (21:30)
[2018-07-29] MEDS ORDERED: VANCOMYCIN IV PER PHARMACY XX (21:30)
[2018-07-29] MEDS ORDERED: FENTAnyl 50 MCG/ML VIAL IV (21:30)
[2018-07-29] MEDS ORDERED: DIPHENHYDRAMINE 50 MG INJ IV (21:30)
[2018-07-29] MEDS ORDERED: HYDROmorphONE 1 MG/5 ML IV SYRINGE IV ×2 (21:30)
[2018-07-29] MEDS: EPHEDrine SULFATE 50 MG/5 ML SYG IV ×3 (21:44→22:33)
[2018-07-29 23:06] LABS: ADD MAN DIFF? NO
[2018-07-29 23:07] LABS: WHITE BLOOD COUNT 12.6 10^3/ul (4.8-10.8)
[2018-07-29 23:07] LABS: BASOPHILS % 0.2 % (0.0-2.0); EOSINOPHILS # 0.1 10^3/ul (0.0-0.5); EOSINOPHILS % 0.6 % (0.0-7.0); HEMATOCRIT 29.3 % (42.0-52.0); HEMOGLOBIN 8.7 g/dl (14.0-18.0); LYMPHOCYTES # 1.9 10^3/ul (0.8-2.9); LYMPHOCYTES % 15.4 % (15.0-51.0); MEAN CORPUSCULAR HEMOGLOBIN 25.7 pg (29.0-33.0); MEAN CORPUSCULAR HGB CONC 29.7 g/dl (32.0-37.0); MEAN CORPUSCULAR VOLUME 86.7 fl (82.0-101.0); MONOCYTE # 1.3 10^3/ul (0.3-0.9); MONOCYTES % 10.5 % (0.0-11.0); NEUTROPHIL # 9.1 10^3/ul (1.6-7.5); NEUTROPHILS % 72.3 % (39.0-77.0); PLATELET COUNT 299 10^3/UL (140-415); RED BLOOD COUNT 3.38 10^6/ul (4.70-6.10); RED CELL DISTRIBUTION WIDTH 15.5 % (11.5-14.5)
[2018-07-29] MEDS: SOD CHLORIDE 0.9% 500 ML IV (23:19)
[2018-07-29 23:26] LABS: ALANINE AMINOTRANSFERASE 24 IU/L (13-69); ALBUMIN 2.4 g/dl (3.3-4.9); ALBUMIN/GLOBULIN RATIO 0.75; ALKALINE PHOSPHATASE 140 IU/L (42-121); ANION GAP 7 (5-13); ASPARTATE AMINO TRANSFERASE 17 IU/L (15-46); BILIRUBIN,INDIRECT 0.1 mg/dl (0-1.1); BILIRUBIN,TOTAL 0.1 mg/dl (0.2-1.3); BLOOD UREA NITROGEN 8 mg/dl (7-20); CALCIUM 8.3 mg/dl (8.4-10.2); CARBON DIOXIDE 28 mmol/L (21-31); CHLORIDE 101 mmol/L (97-110); CREATININE 0.51 mg/dl (0.61-1.24); Estimated GFR > 60 mL/min (>60); GLUCOSE 106 mg/dl (70-220); POTASSIUM 4.2 mmol/L (3.5-5.1); SODIUM 136 mmol/L (135-144); TOTAL PROTEIN 5.6 g/dl (6.1-8.1)
[2018-07-29 23:29] LABS: C-REACTIVE PROTEIN 8.1 mg/dl (0.0-0.9)
[2018-07-29] MEDS: PIPER-TAZO 3.375 GM IV (PMX) 100 ML IVPB (23:36)
[2018-07-30 00:10] LABS: ERYTHROCYTE SEDIMENTATION RATE 80 mm/Hr (0-20)
[2018-07-30] MEDS: SOD CHLORIDE 0.9% 1,000 ML IV ×3 (01:17→20:16)
[2018-07-30] MEDS: HYDROCODONE/APAP (5/325) TAB PO ×2 (01:28→05:33)
[2018-07-30] MEDS: PANTOPRAZOLE (EC) 40 MG TAB PO (05:33)
[2018-07-30] MEDS: INSULIN ASPART [NOVOLOG] 3 ML PEN SC ×7 (07:00→20:16)
[2018-07-30] MEDS ORDERED: VANCOMYCIN HCL 1.25 GM in SOD CHLORIDE 0.9% 250 ML IVPB (07:30)
[2018-07-30] MEDS: ASCORBIC ACID 500 MG TAB PO (09:07)
[2018-07-30] MEDS: ZINC SULFATE 220 MG CAP PO (09:07)
[2018-07-30] MEDS: FLUCONAZOLE 200 MG TAB PO (09:07)
[2018-07-30] MEDS: GABAPENTIN 100 MG CAP PO ×3 (09:08→20:16)
[2018-07-30] MEDS: FERROUS SULFATE (EC) 325 MG TAB PO (09:08)
[2018-07-30] MEDS: ENOXAPARIN 40 MG/0.4 ML SYG SC (09:10)
[2018-07-30] MEDS ORDERED: VANCOMYCIN IV PER PHARMACY XX (10:00)
[2018-07-30 10:10] LABS: ADD MAN DIFF? NO
[2018-07-30 10:14] LABS: ABNORMAL IP MESSAGE 1; BASOPHILS % 0.4 % (0.0-2.0); EOSINOPHILS % 0.2 % (0.0-7.0); HEMATOCRIT 28.5 % (42.0-52.0); HEMOGLOBIN 8.5 g/dl (14.0-18.0); LYMPHOCYTES # 1.6 10^3/ul (0.8-2.9); LYMPHOCYTES % 14.2 % (15.0-51.0); MEAN CORPUSCULAR HEMOGLOBIN 25.8 pg (29.0-33.0); MEAN CORPUSCULAR HGB CONC 29.8 g/dl (32.0-37.0); MEAN CORPUSCULAR VOLUME 86.4 fl (82.0-101.0); MEAN PLATELET VOLUME 10.4 fl (7.4-10.4); MONOCYTE # 1.5 10^3/ul (0.3-0.9); MONOCYTES % 13.8 % (0.0-11.0); NEUTROPHIL # 7.7 10^3/ul (1.6-7.5); NEUTROPHILS % 70.4 % (39.0-77.0); PLATELET COUNT 301 10^3/UL (140-415); POSITIVE DIFF @See below; RED CELL DISTRIBUTION WIDTH 15.4 % (11.5-14.5)
[2018-07-30 10:32] LABS: ANION GAP 3 (5-13); BLOOD UREA NITROGEN 11 mg/dl (7-20); CALCIUM 8.3 mg/dl (8.4-10.2); CREATININE 0.48 mg/dl (0.61-1.24); Estimated GFR > 60 mL/min (>60); GLUCOSE 175 mg/dl (70-220)
[2018-07-30 10:36] LABS: CARBON DIOXIDE 27 mmol/L (21-31); CHLORIDE 106 mmol/L (97-110); POTASSIUM 4.3 mmol/L (3.5-5.1); SODIUM 136 mmol/L (135-144)
[2018-07-30] MEDS: VANCOMYCIN HCL 1.25 GM in SOD CHLORIDE 0.9% 250 ML IVPB ×2 (10:40→23:05)
[2018-07-30] MEDS: ONDANSETRON INJ 8 MG in DEXTROSE 5% 50 ML IV (11:28)
[2018-07-30] MEDS: LOPERAMIDE 2 MG CAP PO (13:37)
[2018-07-30] MEDS: BALSAM PERU/CASTOR OIL 60 GM TUBE TOP ×2 (13:44→20:17)
[2018-07-30] MEDS: INSULIN GLARGINE [LANTus] (100 UNITS/ML) SYG SC (20:21)
[2018-07-31] MEDS: PANTOPRAZOLE (EC) 40 MG TAB PO (05:59)
[2018-07-31] MEDS: SOD CHLORIDE 0.9% 1,000 ML IV ×2 (06:00→12:18)
[2018-07-31 06:19] LABS: ADD MAN DIFF? NO
[2018-07-31 06:35] LABS: BASOPHILS % 0.3 % (0.0-2.0); EOSINOPHILS # 0.1 10^3/ul (0.0-0.5); EOSINOPHILS % 0.6 % (0.0-7.0); HEMATOCRIT 23.1 % (42.0-52.0); LYMPHOCYTES # 1.5 10^3/ul (0.8-2.9); LYMPHOCYTES % 15.6 % (15.0-51.0); MEAN CORPUSCULAR HEMOGLOBIN 26.1 pg (29.0-33.0); MEAN CORPUSCULAR HGB CONC 30.3 g/dl (32.0-37.0); MEAN CORPUSCULAR VOLUME 86.2 fl (82.0-101.0); MEAN PLATELET VOLUME 10.7 fl (7.4-10.4); MONOCYTE # 1.1 10^3/ul (0.3-0.9); MONOCYTES % 11.6 % (0.0-11.0); NEUTROPHIL # 6.7 10^3/ul (1.6-7.5); NEUTROPHILS % 71.4 % (39.0-77.0); PLATELET COUNT 251 10^3/UL (140-415); RED BLOOD COUNT 2.68 10^6/ul (4.70-6.10); RED CELL DISTRIBUTION WIDTH 15.6 % (11.5-14.5)
[2018-07-31 06:35] LABS: WHITE BLOOD COUNT 9.4 10^3/ul (4.8-10.8)
[2018-07-31] MEDS: INSULIN ASPART [NOVOLOG] 3 ML PEN SC ×8 (07:00→20:51)
[2018-07-31 07:09] LABS: ANION GAP 5 (5-13); BLOOD UREA NITROGEN 7 mg/dl (7-20); CALCIUM 8.3 mg/dl (8.4-10.2); CARBON DIOXIDE 28 mmol/L (21-31); CHLORIDE 102 mmol/L (97-110); CREATININE 0.43 mg/dl (0.61-1.24); Estimated GFR > 60 mL/min (>60); GLUCOSE 77 mg/dl (70-220); POTASSIUM 3.9 mmol/L (3.5-5.1); SODIUM 135 mmol/L (135-144)
[2018-07-31 07:14] LABS: PHOSPHORUS 3.4 mg/dl (2.5-4.9)
[2018-07-31 07:14] LABS: MAGNESIUM 1.8 mg/dl (1.7-2.5)
[2018-07-31] MEDS: FLUCONAZOLE 200 MG TAB PO (08:34)
[2018-07-31] MEDS: ASCORBIC ACID 500 MG TAB PO (08:34)
[2018-07-31] MEDS: BALSAM PERU/CASTOR OIL 60 GM TUBE TOP ×2 (08:34→21:00)
[2018-07-31] MEDS: ZINC SULFATE 220 MG CAP PO (08:34)
[2018-07-31] MEDS: GABAPENTIN 100 MG CAP PO ×3 (08:34→20:37)
[2018-07-31] MEDS: FERROUS SULFATE (EC) 325 MG TAB PO (08:34)
[2018-07-31] MEDS: ENOXAPARIN 40 MG/0.4 ML SYG SC (08:40)
[2018-07-31] MEDS: HYDROCODONE/APAP (5/325) TAB PO ×3 (08:43→20:38)
[2018-07-31] MEDS: VANCOMYCIN HCL 1.25 GM in SOD CHLORIDE 0.9% 250 ML IVPB ×2 (12:18→23:22)
[2018-07-31] MEDS: ACETAMINOPHEN 500 MG TAB PO (17:32)
[2018-07-31] MEDS: INSULIN GLARGINE [LANTus] (100 UNITS/ML) SYG SC (20:46)
[2018-07-31 23:20] LABS: C-REACTIVE PROTEIN 16.4 mg/dl (0.0-0.9)
[2018-07-31 23:50] LABS: ERYTHROCYTE SEDIMENTATION RATE 105 mm/Hr (0-20)
[2018-08-01] MEDS: SOD CHLORIDE 0.9% 1,000 ML IV ×3 (04:47→22:00)
[2018-08-01] MEDS: HYDROCODONE/APAP (5/325) TAB PO ×5 (04:51→21:53)
[2018-08-01] MEDS: PANTOPRAZOLE (EC) 40 MG TAB PO (04:51)
[2018-08-01 05:41] LABS: ADD MAN DIFF? NO; BASOPHILS % 0.2 % (0.0-2.0); EOSINOPHILS # 0.1 10^3/ul (0.0-0.5); EOSINOPHILS % 1.5 % (0.0-7.0); HEMATOCRIT 25.7 % (42.0-52.0); HEMOGLOBIN 7.7 g/dl (14.0-18.0); LYMPHOCYTES # 1.7 10^3/ul (0.8-2.9); LYMPHOCYTES % 19.2 % (15.0-51.0); MEAN CORPUSCULAR HEMOGLOBIN 25.8 pg (29.0-33.0); MEAN CORPUSCULAR VOLUME 86.2 fl (82.0-101.0); MEAN PLATELET VOLUME 10.3 fl (7.4-10.4); MONOCYTES % 11.9 % (0.0-11.0); NEUTROPHIL # 5.7 10^3/ul (1.6-7.5); NEUTROPHILS % 66.2 % (39.0-77.0); PLATELET COUNT 247 10^3/UL (140-415); RED BLOOD COUNT 2.98 10^6/ul (4.70-6.10)
[2018-08-01 05:41] LABS: WHITE BLOOD COUNT 8.6 10^3/ul (4.8-10.8)
[2018-08-01 05:44] LABS: PHOSPHORUS 3.7 mg/dl (2.5-4.9)
[2018-08-01 05:44] LABS: MAGNESIUM 1.9 mg/dl (1.7-2.5)
[2018-08-01 05:49] LABS: ANION GAP 2 (5-13); BLOOD UREA NITROGEN 5 mg/dl (7-20); CALCIUM 8.2 mg/dl (8.4-10.2); CARBON DIOXIDE 29 mmol/L (21-31); CHLORIDE 106 mmol/L (97-110); CREATININE 0.37 mg/dl (0.61-1.24); Estimated GFR > 60 mL/min (>60); GLUCOSE 86 mg/dl (70-220); POTASSIUM 3.6 mmol/L (3.5-5.1); SODIUM 137 mmol/L (135-144)
[2018-08-01] MEDS: INSULIN ASPART [NOVOLOG] 3 ML PEN SC ×7 (07:00→20:40)
[2018-08-01] MEDS: BALSAM PERU/CASTOR OIL 60 GM TUBE TOP ×2 (08:45→20:44)
[2018-08-01] MEDS: ZINC SULFATE 220 MG CAP PO (08:47)
[2018-08-01] MEDS: FLUCONAZOLE 200 MG TAB PO (08:47)
[2018-08-01] MEDS: GABAPENTIN 100 MG CAP PO ×3 (08:47→20:44)
[2018-08-01] MEDS: FERROUS SULFATE (EC) 325 MG TAB PO (08:47)
[2018-08-01] MEDS: ASCORBIC ACID 500 MG TAB PO (08:48)
[2018-08-01] MEDS: ENOXAPARIN 40 MG/0.4 ML SYG SC (08:57)
[2018-08-01] MEDS: VANCOMYCIN HCL 1.5 GM in SOD CHLORIDE 0.9% 250 ML IVPB ×2 (14:31→23:08)
[2018-08-01] MEDS: INSULIN GLARGINE [LANTus] (100 UNITS/ML) SYG SC (20:44)
[2018-08-02] MEDS: PANTOPRAZOLE (EC) 40 MG TAB PO (05:23)
[2018-08-02] MEDS: HYDROCODONE/APAP (5/325) TAB PO ×4 (05:28→23:08)
[2018-08-02] MEDS: SOD CHLORIDE 0.9% 1,000 ML IV ×2 (05:33→17:29)
[2018-08-02] MEDS: INSULIN ASPART [NOVOLOG] 3 ML PEN SC ×7 (07:30→21:00)
[2018-08-02] MEDS: GABAPENTIN 100 MG CAP PO ×3 (08:15→21:01)
[2018-08-02] MEDS: FLUCONAZOLE 200 MG TAB PO (08:15)
[2018-08-02] MEDS: FERROUS SULFATE (EC) 325 MG TAB PO (08:15)
[2018-08-02] MEDS: ASCORBIC ACID 500 MG TAB PO (08:16)
[2018-08-02] MEDS: ZINC SULFATE 220 MG CAP PO (08:16)
[2018-08-02] MEDS: ENOXAPARIN 40 MG/0.4 ML SYG SC (08:17)
[2018-08-02] MEDS: BALSAM PERU/CASTOR OIL 60 GM TUBE TOP ×2 (08:23→21:09)
[2018-08-02] MEDS: VANCOMYCIN HCL 1.5 GM in SOD CHLORIDE 0.9% 250 ML IVPB ×2 (11:19→23:08)
[2018-08-02] MEDS: INSULIN GLARGINE [LANTus] (100 UNITS/ML) SYG SC (21:02)
[2018-08-02 22:34] LABS: VANCOMYCIN,TROUGH 15.2 ug/ml (10.0-20.0)
[2018-08-03] MEDS: SOD CHLORIDE 0.9% 1,000 ML IV ×2 (04:00→06:21)
[2018-08-03] MEDS: PANTOPRAZOLE (EC) 40 MG TAB PO (05:09)
[2018-08-03] MEDS: HYDROCODONE/APAP (5/325) TAB PO ×5 (05:09→22:16)
[2018-08-03] MEDS: INSULIN ASPART [NOVOLOG] 3 ML PEN SC ×7 (07:30→20:36)
[2018-08-03] MEDS: FLUCONAZOLE 200 MG TAB PO (08:02)
[2018-08-03] MEDS: GABAPENTIN 100 MG CAP PO ×3 (08:02→20:27)
[2018-08-03] MEDS: ASCORBIC ACID 500 MG TAB PO (08:02)
[2018-08-03] MEDS: ZINC SULFATE 220 MG CAP PO (08:02)
[2018-08-03] MEDS: FERROUS SULFATE (EC) 325 MG TAB PO (08:02)
[2018-08-03] MEDS: ENOXAPARIN 40 MG/0.4 ML SYG SC (08:04)
[2018-08-03] MEDS: BALSAM PERU/CASTOR OIL 60 GM TUBE TOP ×2 (08:05→20:36)
[2018-08-03] MEDS: VANCOMYCIN HCL 1.5 GM in SOD CHLORIDE 0.9% 250 ML IVPB (11:12)
[2018-08-03] MEDS: VANCOMYCIN HCL 250 MG/5ML POSYG PO ×2 (14:35→18:28)
[2018-08-03] MEDS: INSULIN GLARGINE [LANTus] (100 UNITS/ML) SYG SC (20:28)
[2018-08-04] MEDS: SOD CHLORIDE 0.9% 1,000 ML IV ×3 (00:04→16:33)
[2018-08-04] MEDS: VANCOMYCIN HCL 250 MG/5ML POSYG PO ×5 (00:04→23:58)
[2018-08-04] MEDS: PANTOPRAZOLE (EC) 40 MG TAB PO (05:09)
[2018-08-04] MEDS: HYDROCODONE/APAP (5/325) TAB PO ×4 (05:10→17:22)
[2018-08-04] MEDS: INSULIN ASPART [NOVOLOG] 3 ML PEN SC ×7 (07:30→21:00)
[2018-08-04 08:51] LABS: ADD MAN DIFF? NO
[2018-08-04 08:59] LABS: WHITE BLOOD COUNT 5.6 10^3/ul (4.8-10.8)
[2018-08-04 08:59] LABS: BASOPHILS % 0.4 % (0.0-2.0); EOSINOPHILS # 0.1 10^3/ul (0.0-0.5); EOSINOPHILS % 2.3 % (0.0-7.0); HEMOGLOBIN 8.3 g/dl (14.0-18.0); LYMPHOCYTES # 1.5 10^3/ul (0.8-2.9); LYMPHOCYTES % 27.1 % (15.0-51.0); MEAN CORPUSCULAR HEMOGLOBIN 25.7 pg (29.0-33.0); MEAN CORPUSCULAR HGB CONC 29.6 g/dl (32.0-37.0); MEAN CORPUSCULAR VOLUME 86.7 fl (82.0-101.0); MEAN PLATELET VOLUME 9.8 fl (7.4-10.4); MONOCYTE # 0.5 10^3/ul (0.3-0.9); MONOCYTES % 9.2 % (0.0-11.0); NEUTROPHIL # 3.3 10^3/ul (1.6-7.5); NEUTROPHILS % 59.2 % (39.0-77.0); PLATELET COUNT 329 10^3/UL (140-415); RED BLOOD COUNT 3.23 10^6/ul (4.70-6.10)
[2018-08-04] MEDS: FERROUS SULFATE (EC) 325 MG TAB PO (09:15)
[2018-08-04] MEDS: FLUCONAZOLE 200 MG TAB PO (09:15)
[2018-08-04] MEDS: ASCORBIC ACID 500 MG TAB PO (09:15)
[2018-08-04] MEDS: ZINC SULFATE 220 MG CAP PO (09:15)
[2018-08-04] MEDS: GABAPENTIN 100 MG CAP PO ×3 (09:15→21:04)
[2018-08-04] MEDS: BALSAM PERU/CASTOR OIL 60 GM TUBE TOP ×2 (09:16→21:08)
[2018-08-04] MEDS: ENOXAPARIN 40 MG/0.4 ML SYG SC (09:17)
[2018-08-04 09:30] LABS: ALANINE AMINOTRANSFERASE 26 IU/L (13-69); ALBUMIN 2.2 g/dl (3.3-4.9); ALBUMIN/GLOBULIN RATIO 0.75; ALKALINE PHOSPHATASE 121 IU/L (42-121); ANION GAP 4 (5-13); ASPARTATE AMINO TRANSFERASE 18 IU/L (15-46); BLOOD UREA NITROGEN 5 mg/dl (7-20); CALCIUM 8.6 mg/dl (8.4-10.2); CARBON DIOXIDE 33 mmol/L (21-31); CHLORIDE 102 mmol/L (97-110); CREATININE 0.42 mg/dl (0.61-1.24); Estimated GFR > 60 mL/min (>60); GLUCOSE 78 mg/dl (70-220); POTASSIUM 3.9 mmol/L (3.5-5.1); SODIUM 139 mmol/L (135-144); TOTAL PROTEIN 5.1 g/dl (6.1-8.1)
[2018-08-04] MEDS: INSULIN GLARGINE [LANTus] (100 UNITS/ML) SYG SC (20:07)
[2018-08-05] MEDS: SOD CHLORIDE 0.9% 1,000 ML IV ×3 (02:39→23:15)
[2018-08-05] MEDS: PANTOPRAZOLE (EC) 40 MG TAB PO (05:31)
[2018-08-05] MEDS: VANCOMYCIN HCL 250 MG/5ML POSYG PO ×3 (05:31→18:23)
[2018-08-05] MEDS: INSULIN ASPART [NOVOLOG] 3 ML PEN SC ×7 (08:05→21:00)
[2018-08-05] MEDS: FLUCONAZOLE 200 MG TAB PO (09:40)
[2018-08-05] MEDS: ZINC SULFATE 220 MG CAP PO (09:41)
[2018-08-05] MEDS: HYDROCODONE/APAP (5/325) TAB PO ×3 (09:41→20:28)
[2018-08-05] MEDS: ASCORBIC ACID 500 MG TAB PO (09:41)
[2018-08-05] MEDS: FERROUS SULFATE (EC) 325 MG TAB PO (09:41)
[2018-08-05] MEDS: GABAPENTIN 100 MG CAP PO ×3 (09:41→20:28)
[2018-08-05] MEDS: ENOXAPARIN 40 MG/0.4 ML SYG SC (09:42)
[2018-08-05] MEDS: BALSAM PERU/CASTOR OIL 60 GM TUBE TOP ×2 (09:42→20:29)
[2018-08-05] MEDS: INSULIN GLARGINE [LANTus] (100 UNITS/ML) SYG SC (20:36)
[2018-08-06] MEDS: VANCOMYCIN HCL 250 MG/5ML POSYG PO ×5 (00:11→23:54)
[2018-08-06] MEDS: HYDROCODONE/APAP (5/325) TAB PO ×6 (00:45→23:57)
[2018-08-06] MEDS: PANTOPRAZOLE (EC) 40 MG TAB PO (05:48)
[2018-08-06] MEDS: INSULIN ASPART [NOVOLOG] 3 ML PEN SC ×7 (07:30→21:00)
[2018-08-06] MEDS: ASCORBIC ACID 500 MG TAB PO (09:16)
[2018-08-06] MEDS: ZINC SULFATE 220 MG CAP PO (09:16)
[2018-08-06] MEDS: FERROUS SULFATE (EC) 325 MG TAB PO (09:16)
[2018-08-06] MEDS: GABAPENTIN 100 MG CAP PO ×3 (09:16→21:12)
[2018-08-06] MEDS: FLUCONAZOLE 200 MG TAB PO (09:17)
[2018-08-06] MEDS: ENOXAPARIN 40 MG/0.4 ML SYG SC (09:19)
[2018-08-06] MEDS: SOD CHLORIDE 0.9% 1,000 ML IV ×2 (09:21→19:51)
[2018-08-06] MEDS: BALSAM PERU/CASTOR OIL 60 GM TUBE TOP ×2 (09:21→21:17)
[2018-08-06 09:44] LABS: ANION GAP 5 (5-13); BLOOD UREA NITROGEN 6 mg/dl (7-20); CALCIUM 8.5 mg/dl (8.4-10.2); CARBON DIOXIDE 32 mmol/L (21-31); CHLORIDE 100 mmol/L (97-110); CREATININE 0.47 mg/dl (0.61-1.24); Estimated GFR > 60 mL/min (>60); GLUCOSE 111 mg/dl (70-220); POTASSIUM 3.8 mmol/L (3.5-5.1); SODIUM 137 mmol/L (135-144)
[2018-08-06] MEDS: INSULIN GLARGINE [LANTus] (100 UNITS/ML) SYG SC (19:54)
[2018-08-07] MEDS: SOD CHLORIDE 0.9% 1,000 ML IV ×2 (05:55→16:18)
[2018-08-07] MEDS: PANTOPRAZOLE (EC) 40 MG TAB PO (05:55)
[2018-08-07] MEDS: VANCOMYCIN HCL 250 MG/5ML POSYG PO ×4 (05:55→23:59)
[2018-08-07] MEDS: HYDROCODONE/APAP (5/325) TAB PO ×4 (06:00→20:16)
[2018-08-07] MEDS: INSULIN ASPART [NOVOLOG] 3 ML PEN SC ×7 (08:14→21:00)
[2018-08-07] MEDS: ZINC SULFATE 220 MG CAP PO (08:47)
[2018-08-07] MEDS: FLUCONAZOLE 200 MG TAB PO (08:48)
[2018-08-07] MEDS: GABAPENTIN 100 MG CAP PO ×3 (08:48→20:42)
[2018-08-07] MEDS: ENOXAPARIN 40 MG/0.4 ML SYG SC (08:48)
[2018-08-07] MEDS: BALSAM PERU/CASTOR OIL 60 GM TUBE TOP ×2 (08:50→20:42)
[2018-08-07] MEDS: ASCORBIC ACID 500 MG TAB PO (08:50)
[2018-08-07] MEDS: FERROUS SULFATE (EC) 325 MG TAB PO (08:50)
[2018-08-07] MEDS: INSULIN GLARGINE [LANTus] (100 UNITS/ML) SYG SC (20:16)
[2018-08-08] MEDS: HYDROCODONE/APAP (5/325) TAB PO ×6 (00:33→21:40)
[2018-08-08] MEDS: SOD CHLORIDE 0.9% 1,000 ML IV ×3 (02:25→22:37)
[2018-08-08] MEDS: VANCOMYCIN HCL 250 MG/5ML POSYG PO ×3 (05:26→17:40)
[2018-08-08] MEDS: PANTOPRAZOLE (EC) 40 MG TAB PO (05:26)
[2018-08-08] MEDS: ZINC SULFATE 220 MG CAP PO (08:35)
[2018-08-08] MEDS: FERROUS SULFATE (EC) 325 MG TAB PO (08:35)
[2018-08-08] MEDS: GABAPENTIN 100 MG CAP PO ×3 (08:36→20:24)
[2018-08-08] MEDS: FLUCONAZOLE 200 MG TAB PO (08:36)
[2018-08-08] MEDS: ASCORBIC ACID 500 MG TAB PO (08:36)
[2018-08-08] MEDS: ENOXAPARIN 40 MG/0.4 ML SYG SC (08:37)
[2018-08-08] MEDS: INSULIN ASPART [NOVOLOG] 3 ML PEN SC ×7 (08:38→20:30)
[2018-08-08] MEDS: BALSAM PERU/CASTOR OIL 60 GM TUBE TOP ×2 (09:00→20:27)
[2018-08-08] MEDS: INSULIN GLARGINE [LANTus] (100 UNITS/ML) SYG SC (20:26)
[2018-08-09] MEDS: VANCOMYCIN HCL 250 MG/5ML POSYG PO ×4 (00:10→17:08)
[2018-08-09] MEDS: INSULIN ASPART [NOVOLOG] 3 ML PEN SC ×4 (05:09→17:13)
[2018-08-09] MEDS: PANTOPRAZOLE (EC) 40 MG TAB PO (05:11)
[2018-08-09] MEDS: HYDROCODONE/APAP (5/325) TAB PO ×4 (05:28→22:02)
[2018-08-09 06:24] LABS: ADD MAN DIFF? NO
[2018-08-09 06:26] LABS: BASOPHILS % 0.3 % (0.0-2.0); EOSINOPHILS # 0.2 10^3/ul (0.0-0.5); EOSINOPHILS % 2.6 % (0.0-7.0); HEMATOCRIT 25.5 % (42.0-52.0); HEMOGLOBIN 7.7 g/dl (14.0-18.0); LYMPHOCYTES # 1.7 10^3/ul (0.8-2.9); LYMPHOCYTES % 25.6 % (15.0-51.0); MEAN CORPUSCULAR HEMOGLOBIN 26.2 pg (29.0-33.0); MEAN CORPUSCULAR HGB CONC 30.2 g/dl (32.0-37.0); MEAN CORPUSCULAR VOLUME 86.7 fl (82.0-101.0); MEAN PLATELET VOLUME 10.2 fl (7.4-10.4); MONOCYTES % 14.5 % (0.0-11.0); NEUTROPHIL # 3.7 10^3/ul (1.6-7.5); NEUTROPHILS % 55.3 % (39.0-77.0); PLATELET COUNT 353 10^3/UL (140-415); RED BLOOD COUNT 2.94 10^6/ul (4.70-6.10); RED CELL DISTRIBUTION WIDTH 16.5 % (11.5-14.5)
[2018-08-09 06:26] LABS: WHITE BLOOD COUNT 6.6 10^3/ul (4.8-10.8)
[2018-08-09 06:44] LABS: ANION GAP 7 (5-13); BLOOD UREA NITROGEN 14 mg/dl (7-20); CALCIUM 8.2 mg/dl (8.4-10.2); CARBON DIOXIDE 29 mmol/L (21-31); CHLORIDE 100 mmol/L (97-110); CREATININE 0.42 mg/dl (0.61-1.24); Estimated GFR > 60 mL/min (>60); GLUCOSE 134 mg/dl (70-220); POTASSIUM 3.8 mmol/L (3.5-5.1); SODIUM 136 mmol/L (135-144)
[2018-08-09] MEDS ORDERED: BACITRACIN 50000 UNITS INJ (06:45)
[2018-08-09 06:49] LABS: PHOSPHORUS 4.2 mg/dl (2.5-4.9)
[2018-08-09 06:49] LABS: MAGNESIUM 1.9 mg/dl (1.7-2.5)
[2018-08-09] MEDS ORDERED: POLYMYXIN B 500000 UNIT INJ (06:50)
[2018-08-09] MEDS ORDERED: LIDOCAINE 2% (SDV) 5 ML INJ (06:51)
[2018-08-09] MEDS ORDERED: PROPOFOL 20 ML (06:51)
[2018-08-09] MEDS ORDERED: FENTAnyl 50 MCG/ML VIAL (06:51)
[2018-08-09] MEDS ORDERED: MIDAZOLAM 1 MG/ML 2 ML INJ (06:52)
[2018-08-09] MEDS ORDERED: MINERAL OIL LIGHT 10 ML VIAL (07:04)
[2018-08-09] MEDS ORDERED: LIDOCAINE 1% (MPF) 30 ML INJ (07:04)
[2018-08-09] MEDS ORDERED: FAMOTIDINE 20 MG INJ (08:13)
[2018-08-09] MEDS ORDERED: METOCLOPRAMIDE 10 MG INJ (08:13)
[2018-08-09] MEDS ORDERED: ONDANSETRON 4 MG INJ (08:13)
[2018-08-09] MEDS ORDERED: FENTAnyl 50 MCG/ML VIAL IV ×4 (08:30)
[2018-08-09] MEDS ORDERED: MEPERIDINE 25 MG INJ IV (08:30)
[2018-08-09] MEDS ORDERED: OXYCODONE/ACETAMINOPHEN (5/325) TAB PO ×4 (08:30)
[2018-08-09] MEDS ORDERED: ONDANSETRON 4 MG INJ IV ×2 (08:30)
[2018-08-09] MEDS: POLYMYXIN/BACITRACIN 1L IRRIG IRR (08:45)
[2018-08-09] MEDS ORDERED: PHENYLephrine (100 MCG/ML) 5ML SYG (08:45)
[2018-08-09] MEDS: POLYMYXIN B 500000 UNIT INJ (08:46)
[2018-08-09] MEDS: BACITRACIN 50000 UNITS INJ (08:46)
[2018-08-09] MEDS: GABAPENTIN 100 MG CAP PO ×3 (09:00→21:16)
[2018-08-09] MEDS: ENOXAPARIN 40 MG/0.4 ML SYG SC (09:00)
[2018-08-09 09:07] LABS: IMMEDIATE SPIN CROSSMATCH 1 2
[2018-08-09] MEDS ORDERED: POLYMYXIN/BACITRACIN 1L IRRIG (09:45)
[2018-08-09] MEDS ORDERED: INSULIN ASPART [NOVOLOG] 3 ML PEN SC (11:30)
[2018-08-09] MEDS: FERROUS SULFATE (EC) 325 MG TAB PO (12:11)
[2018-08-09] MEDS: FLUCONAZOLE 200 MG TAB PO (12:12)
[2018-08-09] MEDS: ASCORBIC ACID 500 MG TAB PO (12:12)
[2018-08-09] MEDS: ZINC SULFATE 220 MG CAP PO (12:12)
[2018-08-09] MEDS: SOD CHLORIDE 0.9% 1,000 ML IV (12:14)
[2018-08-09] MEDS: Insulin NOVOLOG SS MODERATE Algorithm (SS with meals and bedtime) SC ×3 (12:19→21:00)
[2018-08-09] MEDS: BALSAM PERU/CASTOR OIL 60 GM TUBE TOP ×2 (12:21→21:17)
[2018-08-09 15:01] LABS: HEMATOCRIT 28.3 % (42.0-52.0); HEMOGLOBIN 8.5 g/dl (14.0-18.0)
[2018-08-09] MEDS: metFORMIN 500 MG TAB PO (17:10)
[2018-08-09] MEDS: INSULIN GLARGINE [LANTus] (100 UNITS/ML) SYG SC (21:17)
[2018-08-10] MEDS: VANCOMYCIN HCL 250 MG/5ML POSYG PO ×4 (00:41→17:44)
[2018-08-10] MEDS: SOD CHLORIDE 0.9% 1,000 ML IV ×4 (00:44→20:26)
[2018-08-10] MEDS: HYDROCODONE/APAP (5/325) TAB PO ×4 (03:03→20:10)
[2018-08-10] MEDS: PANTOPRAZOLE (EC) 40 MG TAB PO (05:58)
[2018-08-10] MEDS: Insulin NOVOLOG SS MODERATE Algorithm (SS with meals and bedtime) SC ×4 (08:00→20:29)
[2018-08-10] MEDS: ASCORBIC ACID 500 MG TAB PO (08:03)
[2018-08-10] MEDS: GABAPENTIN 100 MG CAP PO ×3 (08:04→20:09)
[2018-08-10] MEDS: ZINC SULFATE 220 MG CAP PO (08:04)
[2018-08-10] MEDS: metFORMIN 500 MG TAB PO ×2 (08:04→17:44)
[2018-08-10] MEDS: FLUCONAZOLE 200 MG TAB PO (08:04)
[2018-08-10] MEDS: FERROUS SULFATE (EC) 325 MG TAB PO (08:04)
[2018-08-10] MEDS: INSULIN ASPART [NOVOLOG] 3 ML PEN SC ×3 (08:07→17:44)
[2018-08-10] MEDS: ENOXAPARIN 40 MG/0.4 ML SYG SC (08:08)
[2018-08-10] MEDS: BALSAM PERU/CASTOR OIL 60 GM TUBE TOP ×2 (08:09→20:15)
[2018-08-10] MEDS: INSULIN GLARGINE [LANTus] (100 UNITS/ML) SYG SC (20:14)
[2018-08-11] MEDS: VANCOMYCIN HCL 250 MG/5ML POSYG PO ×5 (00:59→23:24)
[2018-08-11] MEDS: HYDROCODONE/APAP (5/325) TAB PO ×6 (01:01→23:25)
[2018-08-11] MEDS: PANTOPRAZOLE (EC) 40 MG TAB PO (06:33)
[2018-08-11] MEDS: SOD CHLORIDE 0.9% 1,000 ML IV ×3 (06:34→22:00)
[2018-08-11] MEDS: GABAPENTIN 100 MG CAP PO ×3 (08:26→21:45)
[2018-08-11] MEDS: ASCORBIC ACID 500 MG TAB PO (08:26)
[2018-08-11] MEDS: ZINC SULFATE 220 MG CAP PO (08:26)
[2018-08-11] MEDS: FLUCONAZOLE 200 MG TAB PO (08:27)
[2018-08-11] MEDS: metFORMIN 500 MG TAB PO ×2 (08:27→17:09)
[2018-08-11] MEDS: FERROUS SULFATE (EC) 325 MG TAB PO (08:29)
[2018-08-11] MEDS: INSULIN ASPART [NOVOLOG] 3 ML PEN SC ×3 (08:30→17:13)
[2018-08-11] MEDS: Insulin NOVOLOG SS MODERATE Algorithm (SS with meals and bedtime) SC ×4 (08:31→21:00)
[2018-08-11] MEDS: ENOXAPARIN 40 MG/0.4 ML SYG SC (08:32)
[2018-08-11] MEDS: BALSAM PERU/CASTOR OIL 60 GM TUBE TOP ×2 (08:41→21:45)
[2018-08-11] MEDS: INSULIN GLARGINE [LANTus] (100 UNITS/ML) SYG SC (21:47)
[2018-08-12] MEDS: HYDROCODONE/APAP (5/325) TAB PO ×5 (04:16→20:05)
[2018-08-12] MEDS: PANTOPRAZOLE (EC) 40 MG TAB PO (06:29)
[2018-08-12] MEDS: VANCOMYCIN HCL 250 MG/5ML POSYG PO ×3 (06:29→17:55)
[2018-08-12] MEDS: Insulin NOVOLOG SS MODERATE Algorithm (SS with meals and bedtime) SC ×4 (08:00→20:05)
[2018-08-12] MEDS: SOD CHLORIDE 0.9% 1,000 ML IV ×3 (08:00→22:20)
[2018-08-12] MEDS: metFORMIN 500 MG TAB PO ×2 (08:03→17:10)
[2018-08-12] MEDS: INSULIN ASPART [NOVOLOG] 3 ML PEN SC ×3 (08:05→17:10)
[2018-08-12] MEDS: BALSAM PERU/CASTOR OIL 60 GM TUBE TOP ×2 (09:00→20:07)
[2018-08-12] MEDS: GABAPENTIN 100 MG CAP PO ×3 (09:53→20:05)
[2018-08-12] MEDS: FERROUS SULFATE (EC) 325 MG TAB PO (09:53)
[2018-08-12] MEDS: ZINC SULFATE 220 MG CAP PO (09:53)
[2018-08-12] MEDS: FLUCONAZOLE 200 MG TAB PO (09:54)
[2018-08-12] MEDS: ASCORBIC ACID 500 MG TAB PO (09:54)
[2018-08-12] MEDS: ENOXAPARIN 40 MG/0.4 ML SYG SC (09:54)
[2018-08-12] MEDS: INSULIN GLARGINE [LANTus] (100 UNITS/ML) SYG SC (20:07)
[2018-08-13] MEDS: VANCOMYCIN HCL 250 MG/5ML POSYG PO ×4 (00:01→17:35)
[2018-08-13] MEDS: SOD CHLORIDE 0.9% 1,000 ML IV ×3 (04:00→18:16)
[2018-08-13] MEDS: HYDROCODONE/APAP (5/325) TAB PO ×6 (04:05→20:56)
[2018-08-13] MEDS: PANTOPRAZOLE (EC) 40 MG TAB PO (06:24)
[2018-08-13] MEDS: Insulin NOVOLOG SS MODERATE Algorithm (SS with meals and bedtime) SC ×4 (08:00→21:00)
[2018-08-13] MEDS: ENOXAPARIN 40 MG/0.4 ML SYG SC (08:02)
[2018-08-13] MEDS: ASCORBIC ACID 500 MG TAB PO (08:03)
[2018-08-13] MEDS: FERROUS SULFATE (EC) 325 MG TAB PO (08:03)
[2018-08-13] MEDS: INSULIN ASPART [NOVOLOG] 3 ML PEN SC ×3 (08:03→17:37)
[2018-08-13] MEDS: metFORMIN 500 MG TAB PO ×2 (08:03→17:36)
[2018-08-13] MEDS: ZINC SULFATE 220 MG CAP PO (08:03)
[2018-08-13] MEDS: BALSAM PERU/CASTOR OIL 60 GM TUBE TOP ×2 (08:04→21:00)
[2018-08-13] MEDS: GABAPENTIN 100 MG CAP PO ×3 (09:14→21:01)
[2018-08-13] MEDS: INSULIN GLARGINE [LANTus] (100 UNITS/ML) SYG SC (21:06)
[2018-08-14] MEDS: VANCOMYCIN HCL 250 MG/5ML POSYG PO ×5 (00:44→23:07)
[2018-08-14] MEDS: HYDROCODONE/APAP (5/325) TAB PO ×6 (00:48→23:07)
[2018-08-14] MEDS: SOD CHLORIDE 0.9% 1,000 ML IV ×2 (04:29→14:50)
[2018-08-14 05:08] LABS: ADD MAN DIFF? NO
[2018-08-14] MEDS: PANTOPRAZOLE (EC) 40 MG TAB PO (05:13)
[2018-08-14 05:21] LABS: BASOPHILS % 0.3 % (0.0-2.0); EOSINOPHILS # 0.2 10^3/ul (0.0-0.5); EOSINOPHILS % 2.3 % (0.0-7.0); HEMATOCRIT 27.3 % (42.0-52.0); HEMOGLOBIN 8.2 g/dl (14.0-18.0); LYMPHOCYTES # 1.6 10^3/ul (0.8-2.9); LYMPHOCYTES % 24.7 % (15.0-51.0); MEAN CORPUSCULAR HEMOGLOBIN 25.7 pg (29.0-33.0); MEAN CORPUSCULAR VOLUME 85.6 fl (82.0-101.0); MONOCYTE # 0.8 10^3/ul (0.3-0.9); MONOCYTES % 11.5 % (0.0-11.0); NEUTROPHILS % 60.6 % (39.0-77.0); PLATELET COUNT 307 10^3/UL (140-415); RED BLOOD COUNT 3.19 10^6/ul (4.70-6.10); RED CELL DISTRIBUTION WIDTH 16.1 % (11.5-14.5)
[2018-08-14 05:21] LABS: WHITE BLOOD COUNT 6.6 10^3/ul (4.8-10.8)
[2018-08-14 05:51] LABS: ANION GAP 2 (5-13); CALCIUM 8.5 mg/dl (8.4-10.2); CARBON DIOXIDE 31 mmol/L (21-31); CHLORIDE 103 mmol/L (97-110); CREATININE 0.34 mg/dl (0.61-1.24); Estimated GFR > 60 mL/min (>60); GLUCOSE 65 mg/dl (70-220); POTASSIUM 3.8 mmol/L (3.5-5.1); SODIUM 136 mmol/L (135-144)
[2018-08-14 05:53] LABS: BLOOD UREA NITROGEN 13 mg/dl (7-20)
[2018-08-14 05:55] LABS: PHOSPHORUS 4.6 mg/dl (2.5-4.9)
[2018-08-14 05:55] LABS: MAGNESIUM 2.1 mg/dl (1.7-2.5)
[2018-08-14] MEDS: INSULIN ASPART [NOVOLOG] 3 ML PEN SC ×3 (07:47→17:37)
[2018-08-14] MEDS: Insulin NOVOLOG SS MODERATE Algorithm (SS with meals and bedtime) SC ×4 (07:47→21:00)
[2018-08-14] MEDS: metFORMIN 500 MG TAB PO ×2 (07:48→17:37)
[2018-08-14] MEDS: ASCORBIC ACID 500 MG TAB PO (08:24)
[2018-08-14] MEDS: GABAPENTIN 100 MG CAP PO ×3 (08:24→21:13)
[2018-08-14] MEDS: FERROUS SULFATE (EC) 325 MG TAB PO (08:24)
[2018-08-14] MEDS: ZINC SULFATE 220 MG CAP PO (08:24)
[2018-08-14] MEDS: ENOXAPARIN 40 MG/0.4 ML SYG SC (08:25)
[2018-08-14] MEDS: BALSAM PERU/CASTOR OIL 60 GM TUBE TOP ×2 (08:25→21:00)
[2018-08-14] MEDS: INSULIN GLARGINE [LANTus] (100 UNITS/ML) SYG SC (21:12)
[2018-08-15] MEDS: SOD CHLORIDE 0.9% 1,000 ML IV ×2 (02:43→13:05)
[2018-08-15] MEDS: HYDROCODONE/APAP (5/325) TAB PO ×5 (03:11→20:21)
[2018-08-15] MEDS: PANTOPRAZOLE (EC) 40 MG TAB PO (06:22)
[2018-08-15] MEDS: VANCOMYCIN HCL 250 MG/5ML POSYG PO ×2 (06:22→11:40)
[2018-08-15] MEDS: Insulin NOVOLOG SS MODERATE Algorithm (SS with meals and bedtime) SC ×4 (08:00→20:25)
[2018-08-15] MEDS: GABAPENTIN 100 MG CAP PO ×3 (08:11→20:21)
[2018-08-15] MEDS: INSULIN ASPART [NOVOLOG] 3 ML PEN SC ×3 (08:11→17:58)
[2018-08-15] MEDS: ENOXAPARIN 40 MG/0.4 ML SYG SC (08:11)
[2018-08-15] MEDS: ASCORBIC ACID 500 MG TAB PO (08:12)
[2018-08-15] MEDS: metFORMIN 500 MG TAB PO ×2 (08:12→17:57)
[2018-08-15] MEDS: BALSAM PERU/CASTOR OIL 60 GM TUBE TOP ×2 (08:12→20:26)
[2018-08-15] MEDS: FERROUS SULFATE (EC) 325 MG TAB PO (08:12)
[2018-08-15] MEDS: ZINC SULFATE 220 MG CAP PO (08:12)
[2018-08-15] MEDS: INSULIN GLARGINE [LANTus] (100 UNITS/ML) SYG SC (20:25)
[2018-08-16] MEDS: HYDROCODONE/APAP (5/325) TAB PO ×6 (00:20→22:07)
[2018-08-16] MEDS: PANTOPRAZOLE (EC) 40 MG TAB PO (05:30)
[2018-08-16] MEDS: Insulin NOVOLOG SS MODERATE Algorithm (SS with meals and bedtime) SC ×4 (08:00→20:30)
[2018-08-16] MEDS: metFORMIN 500 MG TAB PO ×2 (08:15→17:49)
[2018-08-16] MEDS: INSULIN ASPART [NOVOLOG] 3 ML PEN SC ×3 (08:16→17:51)
[2018-08-16] MEDS: GABAPENTIN 100 MG CAP PO ×3 (08:50→20:20)
[2018-08-16] MEDS: ZINC SULFATE 220 MG CAP PO (08:50)
[2018-08-16] MEDS: ASCORBIC ACID 500 MG TAB PO (08:50)
[2018-08-16] MEDS: FERROUS SULFATE (EC) 325 MG TAB PO (08:50)
[2018-08-16] MEDS: BALSAM PERU/CASTOR OIL 60 GM TUBE TOP ×2 (08:51→20:24)
[2018-08-16] MEDS: ENOXAPARIN 40 MG/0.4 ML SYG SC (08:55)
[2018-08-16] MEDS: INSULIN GLARGINE [LANTus] (100 UNITS/ML) SYG SC ×2 (20:00→21:31)
[2018-08-17] MEDS: INSULIN ASPART [NOVOLOG] 3 ML PEN SC ×7 (01:00→17:54)
[2018-08-17] MEDS: HYDROCODONE/APAP (5/325) TAB PO ×4 (02:05→19:55)
[2018-08-17] MEDS: PANTOPRAZOLE (EC) 40 MG TAB PO (06:00)
[2018-08-17] MEDS ORDERED: SEVOFLURANE 15 MIN (07:00)
[2018-08-17] MEDS: metFORMIN 500 MG TAB PO ×2 (07:47→17:54)
[2018-08-17] MEDS: ZINC SULFATE 220 MG CAP PO (08:46)
[2018-08-17] MEDS: FERROUS SULFATE (EC) 325 MG TAB PO (08:46)
[2018-08-17] MEDS: GABAPENTIN 100 MG CAP PO ×3 (08:46→20:03)
[2018-08-17] MEDS: ASCORBIC ACID 500 MG TAB PO (08:46)
[2018-08-17] MEDS: ENOXAPARIN 40 MG/0.4 ML SYG SC (08:46)
[2018-08-17] MEDS: BALSAM PERU/CASTOR OIL 60 GM TUBE TOP ×2 (08:47→20:04)
[2018-08-17] MEDS ORDERED: FENTAnyl 50 MCG/ML VIAL (11:04)
[2018-08-17] MEDS ORDERED: ROCURONIUM 50 MG INJ (11:04)
[2018-08-17] MEDS ORDERED: SUCCINYLCHOLINE CHLORIDE 100 MG/5 ML SYG IV (11:04)
[2018-08-17] MEDS ORDERED: MIDAZOLAM 1 MG/ML 2 ML INJ (11:04)
[2018-08-17] MEDS ORDERED: PROPOFOL 20 ML (11:04)
[2018-08-17 11:07] LABS: ADD MAN DIFF? NO
[2018-08-17 11:13] LABS: WHITE BLOOD COUNT 5.2 10^3/ul (4.8-10.8)
[2018-08-17 11:13] LABS: BASOPHILS % 0.6 % (0.0-2.0); EOSINOPHILS # 0.1 10^3/ul (0.0-0.5); EOSINOPHILS % 1.1 % (0.0-7.0); HEMATOCRIT 33.4 % (42.0-52.0); LYMPHOCYTES # 1.6 10^3/ul (0.8-2.9); LYMPHOCYTES % 29.6 % (15.0-51.0); MEAN CORPUSCULAR HEMOGLOBIN 25.8 pg (29.0-33.0); MEAN CORPUSCULAR HGB CONC 29.9 g/dl (32.0-37.0); MEAN CORPUSCULAR VOLUME 86.1 fl (82.0-101.0); MEAN PLATELET VOLUME 9.5 fl (7.4-10.4); MONOCYTE # 0.6 10^3/ul (0.3-0.9); MONOCYTES % 11.7 % (0.0-11.0); NEUTROPHIL # 2.9 10^3/ul (1.6-7.5); NEUTROPHILS % 56.2 % (39.0-77.0); PLATELET COUNT 334 10^3/UL (140-415); RED BLOOD COUNT 3.88 10^6/ul (4.70-6.10); RED CELL DISTRIBUTION WIDTH 16.5 % (11.5-14.5)
[2018-08-17 11:31] LABS: ALANINE AMINOTRANSFERASE 16 IU/L (13-69); ALBUMIN 2.8 g/dl (3.3-4.9); ALBUMIN/GLOBULIN RATIO 0.77; ALKALINE PHOSPHATASE 96 IU/L (42-121); ANION GAP 10 (5-13); ASPARTATE AMINO TRANSFERASE 14 IU/L (15-46); BILIRUBIN,INDIRECT 0.1 mg/dl (0-1.1); BILIRUBIN,TOTAL 0.1 mg/dl (0.2-1.3); BLOOD UREA NITROGEN 13 mg/dl (7-20); CALCIUM 8.7 mg/dl (8.4-10.2); CARBON DIOXIDE 32 mmol/L (21-31); CHLORIDE 96 mmol/L (97-110); CREATININE 0.44 mg/dl (0.61-1.24); Estimated GFR > 60 mL/min (>60); GLUCOSE 114 mg/dl (70-220); POTASSIUM 4.4 mmol/L (3.5-5.1); SODIUM 138 mmol/L (135-144); TOTAL PROTEIN 6.4 g/dl (6.1-8.1)
[2018-08-17] MEDS ORDERED: ONDANSETRON 4 MG INJ (12:13)
[2018-08-17] MEDS: POLYMYXIN/BACITRACIN 1L IRRIG (12:14)
[2018-08-17] MEDS ORDERED: FENTAnyl 50 MCG/ML VIAL IV (12:30)
[2018-08-17] MEDS ORDERED: OXYCODONE/ACETAMINOPHEN (5/325) TAB PO (12:30)
[2018-08-17] MEDS ORDERED: KETOROLAC 15 MG INJ IV (12:30)
[2018-08-17] MEDS ORDERED: MEPERIDINE 25 MG INJ IV (12:30)
[2018-08-17] MEDS ORDERED: VANCOMYCIN 1 GM 250 ML IVPB (12:30)
[2018-08-17] MEDS ORDERED: morphine (1 MG/ML) 10ML SYRINGE IV (12:30)
[2018-08-17] MEDS ORDERED: ALBUTEROL 0.083% (NEB) 2.5 MG/3 ML AMP HHN (12:30)
[2018-08-17] MEDS ORDERED: METOCLOPRAMIDE 10 MG INJ IV (12:30)
[2018-08-17] MEDS ORDERED: HYDROmorphONE 1 MG/5 ML IV SYRINGE IV (12:30)
[2018-08-17] MEDS ORDERED: ONDANSETRON 4 MG INJ IV (12:30)
[2018-08-17] MEDS ORDERED: DIPHENHYDRAMINE 50 MG INJ IV (12:30)
[2018-08-17] MEDS: VANCOMYCIN 1 GM (PMX) 250 ML IVPB (13:00)
[2018-08-17] MEDS ORDERED: INSULIN ASPART [NOVOLOG] 3 ML PEN SC (17:35)
[2018-08-17] MEDS: Insulin NOVOLOG SS MODERATE Algorithm (SS with meals and bedtime) SC ×2 (17:55→20:03)
[2018-08-17] MEDS: INSULIN GLARGINE [LANTus] (100 UNITS/ML) SYG SC (20:03)
[2018-08-18] MEDS: HYDROCODONE/APAP (5/325) TAB PO ×6 (00:05→23:12)
[2018-08-18] MEDS: PANTOPRAZOLE (EC) 40 MG TAB PO (06:38)
[2018-08-18] MEDS: Insulin NOVOLOG SS MODERATE Algorithm (SS with meals and bedtime) SC ×4 (08:00→21:00)
[2018-08-18] MEDS: BALSAM PERU/CASTOR OIL 60 GM TUBE TOP ×2 (08:01→21:00)
[2018-08-18] MEDS: GABAPENTIN 100 MG CAP PO ×3 (08:03→21:14)
[2018-08-18] MEDS: ASCORBIC ACID 500 MG TAB PO (08:03)
[2018-08-18] MEDS: metFORMIN 500 MG TAB PO ×2 (08:04→17:19)
[2018-08-18] MEDS: INSULIN ASPART [NOVOLOG] 3 ML PEN SC ×3 (08:06→17:20)
[2018-08-18] MEDS: ENOXAPARIN 40 MG/0.4 ML SYG SC (08:06)
[2018-08-18] MEDS: FERROUS SULFATE (EC) 325 MG TAB PO (08:07)
[2018-08-18] MEDS: ZINC SULFATE 220 MG CAP PO (08:07)
[2018-08-18] MEDS: INSULIN GLARGINE [LANTus] (100 UNITS/ML) SYG SC (21:15)
[2018-08-19] MEDS: HYDROCODONE/APAP (5/325) TAB PO ×5 (03:40→21:34)
[2018-08-19] MEDS: PANTOPRAZOLE (EC) 40 MG TAB PO (05:34)
[2018-08-19] MEDS: INSULIN ASPART [NOVOLOG] 3 ML PEN SC ×3 (08:20→17:35)
[2018-08-19] MEDS: Insulin NOVOLOG SS MODERATE Algorithm (SS with meals and bedtime) SC ×4 (08:21→21:00)
[2018-08-19] MEDS: GABAPENTIN 100 MG CAP PO ×3 (08:22→21:34)
[2018-08-19] MEDS: metFORMIN 500 MG TAB PO ×2 (08:22→17:34)
[2018-08-19] MEDS: ASCORBIC ACID 500 MG TAB PO (08:22)
[2018-08-19] MEDS: ENOXAPARIN 40 MG/0.4 ML SYG SC (08:22)
[2018-08-19] MEDS: FERROUS SULFATE (EC) 325 MG TAB PO (08:22)
[2018-08-19] MEDS: ZINC SULFATE 220 MG CAP PO (08:22)
[2018-08-19] MEDS: BALSAM PERU/CASTOR OIL 60 GM TUBE TOP ×2 (08:27→21:35)
[2018-08-19] MEDS: INSULIN GLARGINE [LANTus] (100 UNITS/ML) SYG SC (21:31)
[2018-08-20] MEDS: HYDROCODONE/APAP (5/325) TAB PO ×2 (02:11→06:15)
[2018-08-20] MEDS: PANTOPRAZOLE (EC) 40 MG TAB PO (06:14)
[2018-08-20] MEDS: Insulin NOVOLOG SS MODERATE Algorithm (SS with meals and bedtime) SC ×2 (08:00→12:23)
[2018-08-20] MEDS: metFORMIN 500 MG TAB PO (08:27)
[2018-08-20] MEDS: INSULIN ASPART [NOVOLOG] 3 ML PEN SC ×2 (08:29→12:21)
[2018-08-20] MEDS: ASCORBIC ACID 500 MG TAB PO (09:24)
[2018-08-20] MEDS: GABAPENTIN 100 MG CAP PO ×2 (09:24→12:24)
[2018-08-20] MEDS: FERROUS SULFATE (EC) 325 MG TAB PO (09:24)
[2018-08-20] MEDS: ZINC SULFATE 220 MG CAP PO (09:24)
[2018-08-20] MEDS: ENOXAPARIN 40 MG/0.4 ML SYG SC (09:26)
[2018-08-20] MEDS: BALSAM PERU/CASTOR OIL 60 GM TUBE TOP (09:30)
== END 2018-08-20 18:39 | disposition home health service (06) | DRG 853 ==
LOC: 6WM 07-30 01:17 → E/R 22:03 → 2NE 06-08 21:33 → PP2 08-01 17:03 → ICU 06-07 00:37
PROC: 0JBR0ZZ Excision of Left Foot Subcutaneous Tissue and Fascia, Open Approach (ICD-10-PCS; 2018-06-07 07:30)
PROC: 0JBR0ZZ Excision of Left Foot Subcutaneous Tissue and Fascia, Open Approach (ICD-10-PCS; 2018-06-07 07:30)
PROC: 0LDP0ZZ Extraction of Left Lower Leg Tendon, Open Approach (ICD-10-PCS; 2018-06-07 07:30)
PROC: 0KDT0ZZ Extraction of Left Lower Leg Muscle, Open Approach (ICD-10-PCS; 2018-06-07 07:30)
PROC: 0KBW0ZZ Excision of Left Foot Muscle, Open Approach (ICD-10-PCS; 2018-06-07 07:30)
PROC: 0Y9N0ZX Drainage of Left Foot, Open Approach, Diagnostic (ICD-10-PCS; 2018-06-07 07:30)
PROC: 0Y6N0Z0 Detachment at Left Foot, Complete, Open Approach (ICD-10-PCS; principal; 2018-06-07 09:21)
PROC: 0Y6N0Z9 Detachment at Left Foot, Partial 1st Ray, Open Approach (ICD-10-PCS; 2018-06-07 09:21)
PROC: 0Y6N0ZB Detachment at Left Foot, Partial 2nd Ray, Open Approach (ICD-10-PCS; 2018-06-07 09:21)
PROC: 0Y6N0ZC Detachment at Left Foot, Partial 3rd Ray, Open Approach (ICD-10-PCS; 2018-06-07 09:21)
PROC: 0Y6N0ZD Detachment at Left Foot, Partial 4th Ray, Open Approach (ICD-10-PCS; 2018-06-07 09:21)
PROC: 0Y6N0ZF Detachment at Left Foot, Partial 5th Ray, Open Approach (ICD-10-PCS; 2018-06-07 09:21)
PROC: 0LBT0ZZ Excision of Left Ankle Tendon, Open Approach (ICD-10-PCS; 2018-06-07 09:21)
PROC: 0QBK0ZZ Excision of Left Fibula, Open Approach (ICD-10-PCS; 2018-06-07 09:21)
PROC: 0HRNXK3 Replacement of Left Foot Skin with Nonautologous Tissue Substitute, Full Thickness, External Approach (ICD-10-PCS; 2018-06-07 09:21)
PROC: 0QHM34Z Insertion of Internal Fixation Device into Left Tarsal, Percutaneous Approach (ICD-10-PCS; 2018-06-07 09:21)
PROC: 0HRNXK3 Replacement of Left Foot Skin with Nonautologous Tissue Substitute, Full Thickness, External Approach (ICD-10-PCS; 2018-06-07 09:21)
PROC: 0SHG34Z Insertion of Internal Fixation Device into Left Ankle Joint, Percutaneous Approach (ICD-10-PCS; 2018-06-07 09:21)
PROC: 0QBM0ZZ Excision of Left Tarsal, Open Approach (ICD-10-PCS; 2018-06-07 09:21)
PROC: 0HRNXK3 Replacement of Left Foot Skin with Nonautologous Tissue Substitute, Full Thickness, External Approach (ICD-10-PCS; 2018-06-07 09:21)
PROC: 0QPM04Z Removal of Internal Fixation Device from Left Tarsal, Open Approach (ICD-10-PCS; 2018-06-07 09:21)
PROC: 0LDT0ZZ Extraction of Left Ankle Tendon, Open Approach (ICD-10-PCS; 2018-06-07 09:21)
PROC: 0YBN0ZZ Excision of Left Foot, Open Approach (ICD-10-PCS; 2018-06-07 09:21)
PROC: 0HRNXK3 Replacement of Left Foot Skin with Nonautologous Tissue Substitute, Full Thickness, External Approach (ICD-10-PCS; 2018-06-07 09:21)
PROC: 0QBM0ZZ Excision of Left Tarsal, Open Approach (ICD-10-PCS; 2018-06-07 09:21)
PROC: 0QBH0ZZ Excision of Left Tibia, Open Approach (ICD-10-PCS; 2018-06-07 09:21)
PROC: 0QBM0ZZ Excision of Left Tarsal, Open Approach (ICD-10-PCS; 2018-06-07 09:21)
PROC: 0SHG34Z Insertion of Internal Fixation Device into Left Ankle Joint, Percutaneous Approach (ICD-10-PCS; 2018-06-07 09:21)
PROC: 0DB68ZX Excision of Stomach, Via Natural or Artificial Opening Endoscopic, Diagnostic (ICD-10-PCS; 2018-06-07 09:21)
PROC: 0DJD8ZZ Inspection of Lower Intestinal Tract, Via Natural or Artificial Opening Endoscopic (ICD-10-PCS; 2018-06-07 09:21)
PROC: B410YZZ Fluoroscopy of Abdominal Aorta using Other Contrast (ICD-10-PCS; 2018-06-07 09:21)
PROC: B41GYZZ Fluoroscopy of Left Lower Extremity Arteries using Other Contrast (ICD-10-PCS; 2018-06-07 09:21)
PROC: 0SPGX4Z Removal of Internal Fixation Device from Left Ankle Joint, External Approach (ICD-10-PCS; 2018-06-07 09:21)
PROC: 30233N1 Transfusion of Nonautologous Red Blood Cells into Peripheral Vein, Percutaneous Approach (ICD-10-PCS; 2018-06-07 09:21)
DX: A41.9 Sepsis, unspecified organism (principal); M72.6 Necrotizing fasciitis; L89.153 Pressure ulcer of sacral region, stage 3; E11.10 Type 2 diabetes mellitus with ketoacidosis without coma; A48.0 Gas gangrene; N17.9 Acute kidney failure, unspecified; L97.429 Non-pressure chronic ulcer of left heel and midfoot with unspecified severity; E11.52 Type 2 diabetes mellitus with diabetic peripheral angiopathy with gangrene; L02.612 Cutaneous abscess of left foot; K92.1 Melena; L03.116 Cellulitis of left lower limb; A04.72 Enterocolitis due to Clostridium difficile, not specified as recurrent; M86.172 Other acute osteomyelitis, left ankle and foot; R65.20 Severe sepsis without septic shock; E11.621 Type 2 diabetes mellitus with foot ulcer; I10 Essential (primary) hypertension; K20.9 Esophagitis, unspecified; E66.9 Obesity, unspecified; Z68.25 Body mass index [BMI] 25.0-25.9, adult; E11.65 Type 2 diabetes mellitus with hyperglycemia; E11.69 Type 2 diabetes mellitus with other specified complication; K64.9 Unspecified hemorrhoids; K29.70 Gastritis, unspecified, without bleeding; E11.42 Type 2 diabetes mellitus with diabetic polyneuropathy; L89.629 Pressure ulcer of left heel, unspecified stage; D64.9 Anemia, unspecified
CPT/HCPCS: 36415; 36430; 36600; 71045; 73630-LT; 73700; 75630; 75710; 80048; 80053; 80202; 81001; 81003; 82040; 82270; 82728; 82803; 82962; 83036; 83540; 83605; 83735; 84100; 84132; 84484; 85014; 85018; 85025; 85610; 85651; 85730; 86060; 86140; 86644; 86850; 86900; 86901; 86920; 87040; 87045; 87070; 87075; 87081; 87086; 87102; 87116; 88304; 88305; 88307; 88311; 90686; 93005; 93922; 93970; 94640; 94644; 94664; 96374; 96375; 96376; 97110; 97163; 97164; 97530; 97542; 99291-25